=== PATIENT | male | born 1940 | race Caucasian/White ===

== ENCOUNTER → 2023-05-24 | Outpatient (CLI) | payer OTHER ==
[2023-05-24 11:58] LABS: BASOPHILS # (AUTO) 0.03 K/uL (0.00-0.20); BASOPHILS % (AUTO) 0.4 % (0.0-5.0); EOSINOPHILS # (AUTO) 0.12 K/uL (0.00-0.70); EOSINOPHILS % (AUTO) 1.5 % (0.0-8.0); HEMATOCRIT 41.2 % (42-54); IMMATURE GRANULOCYTE ABSOLUTE 0.05 K/uL (0-1); LYMPHOCYTES # (AUTO) 1.7 K/uL (1.0-4.8); LYMPHOCYTES % (AUTO) 20.3 % (21.0-51.0); MEAN CORPUSCULAR HEMOGLOBIN 26.4 pg (27.0-33.0); MEAN CORPUSCULAR HGB CONC 32.3 g/dL (32.0-36.0); MEAN CORPUSCULAR VOLUME 81.9 fL (79-99); MONOCYTES % (AUTO) 11.8 % (3.0-13.0); NEUTROPHILS # (AUTO) 5.4 K/uL (1.8-7.7); NEUTROPHILS % (AUTO) 65.4 % (40.0-77.0); PLATELET COUNT (AUTO) 225 K/uL (130-400); RED BLOOD CELL COUNT(AUTO) 5.03 MIL/uL (4.50-6.20); RED CELL DISTRIBUTION WIDTH 13.7 % (11.0-15.5); WHITE BLOOD COUNT (AUTO) 8.2 K/uL (4.8-10.8)
[2023-05-24 12:06] LABS: CREATININE 2.4 mg/dL (0.5-1.5); POTASSIUM 4.1 mmol/L (3.5-5.1)
== END | disposition home or self-care (01) ==
LOC: LAB 11:30
PROVIDERS: ATTEND Urology
DX: R31.0 Gross hematuria (principal)
CPT/HCPCS: 36415; 80048; 85025

== ENCOUNTER → 2023-06-07 | Outpatient (CLI) | payer OTHER | END | disposition home or self-care (01) | LOC: RAH 09:18 | PROVIDERS: ATTEND Urology | DX: N13.30 Unspecified hydronephrosis (principal); N40.0 Benign prostatic hyperplasia without lower urinary tract symptoms; N13.4 Hydroureter; K40.90 Unilateral inguinal hernia, without obstruction or gangrene, not specified as recurrent; R31.0 Gross hematuria | CPT/HCPCS: 74176 ==

== ENCOUNTER → 2023-06-14 | Outpatient (CLI) | payer OTHER | END | disposition home or self-care (01) | LOC: RAH 07:54 | PROVIDERS: ATTEND Urology | DX: N13.30 Unspecified hydronephrosis (principal); R31.0 Gross hematuria | CPT/HCPCS: 76770 ==

== ENCOUNTER 2024-01-27 10:59 | Inpatient (IN) | payer OTHER ==
[~2024-01-27] VITALS: Ht 175.3 cm; Wt 92.4 kg
--- NOTE | 2024-01-27 11:09 | ERN ---
ED Note History of Present Illness Stated Complaint: WEAKNESS Chief Complaint: Weakness Time Seen by MD: 11:04 Dictation: Patient is an 83-year-old male coming in with his caregiver with complaints of generalized body weakness, getting worse over the last two weeks. He denies fever chills nausea vomiting , HE DOES STATE HE HAS HAD DIARRHEA FOR 2-3 DAYS.. No chest pain no back pain no cough. He does state he has a history of prostate cancer, is currently on oral chemotherapy and received his last radiation two weeks ago. Oncologists his doctor Rylan Allergies: Coded Allergies: No Known Drug Allergies (Unverified Allergy, Unknown, 01/27/24) Past Medical History Past Medical History: Other (Prostate cancer) RN Note Reviewed/Agreed w/PFSH: Yes Review of System Dictation CONSTITUTIONAL: Negative except for HPI weakness HEAD/FACE: Negative except for HPI EENT: Negative except for HPI RESPIRATORY: Negative except for HPI GASTROINTESTINAL/ABDOMINAL: Negative except for HPI pelvic pain, chronic GENITOURINARY: Negative except for HPI MUSCULOSKELETAL: Negative except for HPI INTEGUMENTARY: Negative except for HPI NEUROLOGICAL/PSYCH: Negative except for HPI HEMATOLOGIC/LYMPHATIC: Negative except for HPI All Systems Negative, Except as noted above. 13 point review of systems assessed and all negative except for above. Initial Vital Sign VS Vital Signs Date Time Temp Pulse Resp B/P (MAP) Pulse Ox O2 Delivery O2 Flow Rate FiO2 01/27/24 11:04 97.0 111 18 181/104 98 01/27/24 11:30 Room Air* 0 21 Physical Exam Dictation Vit vital signs stable, appears weak and debilitated. Head and Face: non-traumatic. Eyes: PERRL, pink conjunctivas, eyelid no trauma, anterior chamber with arcus senilis. Ears: Pinnas intact and no signs of trauma or erythema ear canals clear and no discharge TM no erythema Nose: No discharge, no bleeding. Oropharynx: Mouth normal, tongue pink, pharynx clear,no erythema, tonsils no exudates, no abscesses noted, mucous membrane moist Neck: Supple, non-tender, no thyromegaly, no masses, no JVD, no bruits Breast:Deferred Chest:No tenderness, no crepitus, no paradoxical movement, no retractions Lungs:Clear, well-ventilated, symmetric, no rales, no wheezing, no rhonchi, no stridor, good breath sounds bilaterally Heart: Regular rate, regular rhythm, no murmur, no gallops Vascular: no peripheral edema, Abdomen: Soft, positive bowel sounds, nondistended, no guarding, n diffuse suprapubic tenderness, no rebound, no masses no hepatomegaly, no splenomegaly, no Kramer's sign, no hernias. Rectal: Deferred Genital: Deferred Neurological: Normal speech, motor function intact, sensory function intact generalized body weakness all extremities 4+5 throughout Musculoskeletal: Neck nontender, full range of motion, back nontender, full range of motion, Extremities: nontender, full range of motion Skin: Color pink, dry, no turgor, no rash, no lacerations, no abrasions, no contusions. Lymphatic: Deferred Results (Laboratory/Radiology) Laboratory/Radiology Laboratory Tests Test 01/27/24 11:50 01/27/24 12:00 White Blood Count 8.2 K/uL (4.8-10.8) Red Blood Count 3.80 MIL/uL (4.50-6.20) L Hemoglobin 10.4 g/dL (14.0-18.0) L Hematocrit 32.4 % (42-54) L Mean Corpuscular Volume 85.3 fL (79-99) Mean Corpuscular Hemoglobin 27.4 pg (27.0-33.0) Mean Corpuscular Hemoglobin Concent 32.1 g/dL (32.0-36.0) Red Cell Distribution Width 15.6 % (11.0-15.5) H Platelet Count 332 K/uL (130-400) Mean Platelet Volume 9.8 fL (7.5-10.5) Immature Granulocyte % (Auto) 1.5 % (0-1) H Neutrophils (%) (Auto) 78.8 % (40.0-77.0) H Lymphocytes (%) (Auto) 9.2 % (21.0-51.0) L Monocytes (%) (Auto) 9.2 % (3.0-13.0) Eosinophils (%) (Auto) 0.9 % (0.0-8.0) Basophils (%) (Auto) 0.4 % (0.0-5.0) Neutrophils # (Auto) 6.4 K/uL (1.8-7.7) Lymphocytes # (Auto) 0.8 K/uL (1.0-4.8) L Monocytes # (Auto) 0.8 K/uL (0.1-1.0) Eosinophils # (Auto) 0.07 K/uL (0.00-0.70) Basophils # (Auto) 0.03 K/uL (0.00-0.20) Absolute Immature Granulocyte (auto 0.12 K/uL (0-1) Nucleated Red Blood Cells 0.0 % (0.0-0.19) White Cell Morphology Comment See comments Erythrocyte Sedimentation Rate 97 MM/HR (0-20) H Sodium Level 138 mmol/L (136-145) Potassium Level 4.4 mmol/L (3.5-5.1) Chloride Level 107 mmol/L (101-111) Carbon Dioxide Level 21 mmol/L (21-32) Blood Urea Nitrogen 24 mg/dL (7-18) H Creatinine 2.1 mg/dL (0.5-1.3) H Glomerular Filtration Rate Calc 31 mL/min (>90) Random Glucose 102 mg/dL (70-105) Total Calcium 9.2 mg/dL (8.5-10.1) Phosphorus Level 3.2 mg/dL (2.5-4.9) Magnesium Level 2.00 mg/dL (1.80-2.40) Total Bilirubin 0.3 mg/dL (0.2-1.0) Direct Bilirubin 0.1 mg/dL (0.0-0.3) Aspartate Amino Transf (AST/SGOT) 19 U/L (10-37) Alanine Aminotransferase (ALT/SGPT) 11 U/L (12-78) L Alkaline Phosphatase 208 U/L (50-136) H Troponin I High Sensitivity 17 ng/L (4-75) C-Reactive Protein, Quantitative 30.20 mg/L (0.5-3.0) H Total Protein 7.6 g/dL (6.0-8.3) Albumin 2.1 g/dL (3.5-5.0) L Lipase 26 U/L (16-77) Procalcitonin 0.11 ng/mL (0.05-0.5) Urine Color YELLOW (YELLOW) Urine Appearance CLOUDY (CLEAR) H Urine pH 7.0 (5.0-8.0) Urine Specific [place] 1.020 (1.001-1.031) Urine Protein 30 mg/dL (NEGATIVE) H Urine Glucose (UA) NEGATIVE mg/dL (NEGATIVE) Urine Ketones NEGATIVE mg/dL (NEGATIVE) Urine Occult Blood LARGE (NEGATIVE) H Urine Nitrate NEGATIVE (NEGATIVE) Urine Bilirubin NEGATIVE mg/dL (NEGATIVE) Urine Urobilinogen 0.2 mg/dL (0.2-1.0) Urine Leukocyte Esterase MODERATE Nas/uL Urine RBC 26-50 /HPF (0-1) H Urine WBC 26-50 /HPF (0-1) H Urine Squamous Epithelial Cells None Seen /HPF (0-2) Urine Bacteria Moderate /HPF (None Seen) H Labs Reviewed?: Yes EKG Comment: EKG SINUS RHYTHM/HEART RATE 91/OCCASIONAL UNIFOCAL PVC/RIGHT BUNDLE BRANCH BLOCK. ED Course ED Course Orders Procedure Category Date Status Time Cbc With Differential LAB 01/27/24 Complete 11:06 Troponin I High LAB 01/27/24 Complete Sensitivity 11:06 Urinalysis Profile LAB 01/27/24 Complete 11:06 12 Lead Ekg Tracing- EKG 01/27/24 Complete Technical 11:06 0.9%Nacl 1000ml (Ns PHA 01/27/24 Complete 1000ml) 11:30 Morphine 2mg Syg PHA 01/27/24 Complete (Morphine 2mg Syg) 11:30 Ondansetron 4mg Inj PHA 01/27/24 Complete (Zofran 4mg Inj) 11:30 Basic Metabolic Panel LAB 01/27/24 Complete 11:06 Culture Urine DEEP 01/27/24 In Process 12:42 Ceftriaxone 1g Vial PHA 01/27/24 In Process (Rocephine 1g Inj) 13:30 Edm Admit Bridge Order ADM 01/27/24 Transmitted 13:42 Admit Orders ADM 01/27/24 Transmitted 14:08 Telemetry Monitoring CPOE 01/27/24 Transmitted 14:08 Fall Precautions CPOE 01/27/24 Transmitted 14:08 Morphine 2mg Syg PHA 01/27/24 In Process (Morphine 2mg Syg) 14:30 Nephrology Consult CONPHYSVC 01/27/24 Transmitted 14:08 0.9%Nacl 1000ml (Ns PHA 01/27/24 In Process 1000ml) 14:30 Heart Healthy Diet DIET 01/27/[address] Head/Brain W/O CT 11/17/24 Resulted Contrast 14:12 Ct Abdomen/Pelvis W/O CT 01/27/24 Resulted Contrast 14:12 Zosyn 3.375gm+Ns 50ml PHA 01/27/24 In Process (Zosyn 3.375gm+Ns 14:30 Pt Eval And Treat PT 01/27/24 Transmitted 14:14 Case Management CM 01/27/24 Transmitted Evaluation 14:14 Amlodipine 5 Mg Tab PHA 01/27/24 In Process (Norvasc 5mg Tab) 14:30 Losartan 50 Mg Tablet PHA 01/28/24 In Process (Cozaar 50 Mg Tab) 16:00 *Nursing CPOE 01/27/24 Transmitted Communication: 14:18 Acetaminophen 500mg PHA 01/27/24 In Process Tab (Tylenol 500mg T 14:30 Hepatic Function Panel LAB 01/27/24 Complete 14:19 Erythrocyte LAB 01/27/24 Complete Sedimentation Rate 14:19 Crp Quantitative LAB 01/27/24 Complete 14:19 Procalcitonin LAB 01/27/24 Complete 14:19 Magnesium LAB 01/27/24 Complete 14:19 Phosphorus LAB 01/27/24 Complete 14:19 Pantoprazole 40mg Tab PHA 01/28/24 In Process (Protonix 40mg Tab 09:00 Aspirin 81mg Ec Tab PHA 01/28/24 In Process (Aspirin 81mg Ec Tab 09:00 Hydralazine 20mg Inj PHA 01/27/24 In Process (Apresoline 20mg In 15:30 Lipase LAB 01/27/24 Complete 15:26 Ondansetron 4mg Inj PHA 01/27/24 In Process (Zofran 4mg Inj) 16:00 Urology Consult CONPHYSVC 01/27/24 Transmitted 16:38 Oncology Consult CONPHYSVC 01/27/24 Transmitted 16:38 Tamsulosin Hcl PHA 01/27/24 In Process (Flomax) 17:00 Eval Request For DIETOTHR 01/27/24 Transmitted Dietitian 16:44 Finasteride 5 Mg PHA 01/27/24 In Process Tablet (Proscar 5 Mg 21:00 Cbc With Differential LAB 01/28/24 Verified 04:00 Comprehensive LAB 01/28/24 Verified Metabolic Panel 04:00 Uric Acid LAB 01/28/24 Verified 04:00 Phosphorus LAB 01/28/24 Verified 04:00 Strict I&O CPOE 01/27/24 Transmitted 16:49 Daily Weights CPOE 01/27/24 Transmitted 16:49 Current Medications Medications (Trade) Dose Ordered Sig/Zaida Route PRN Reason Start Time Stop Time Status Last Admin Dose Admin Ceftriaxone Sodium (ROCEphine 1G INJ) 1 gm ONCE IVPB 01/27/24 13:30 01/27/24 21:30 01/27/24 13:35 Morphine Sulfate (morPHINE 2MG SYG) 2 mg ONCE ONCE IVP 01/27/24 11:30 01/27/24 11:31 DC 01/27/24 12:30 Ondansetron HCl (zoFRAN 4MG INJ) 4 mg ONCE ONCE IVP 01/27/24 11:30 01/27/24 11:31 DC 01/27/24 12:30 Sodium Chloride 1,000 ml @ 0 mls/hr ONCE ONCE IV 01/27/24 11:30 01/27/24 11:31 DC 01/27/24 12:30 Vital Signs Date Time Temp Pulse Resp B/P (MAP) Pulse Ox O2 Delivery O2 Flow Rate FiO2 01/27/24 17:00 98.2 9 16 186/93 98 Room Air* 0 01/27/24 16:00 98.2 78 16 176/86 98 Room Air* 0 01/27/24 14:45 98.2 75 16 146/75 100 Room Air* 0 01/27/24 13:45 98.2 73 16 139/77 100 Room Air* 0 01/27/24 12:45 98.2 78 16 139/67 100 Room Air* 0 01/27/24 11:30 98.2 97 16 173/93 98 Room Air* 0 01/27/24 11:04 97.0 111 18 181/609 28 [id number], PATIENT IS HEMODYNAMICALLY STABLE HOWEVER HE HAS A ACUTE KIDNEY INJURY WITH A 2.1 CREATININE, COMPLICATED UTI AND WEAKNESS WE WILL BE ADMITTED TO THE HOSPITAL FOR FLUID RESUSCITATION ADDRESSING HIS DEHYDRATION HIS URINARY TRACT INFECTION AND WEAKNESS. THIRTEEN 40, SPOKE WITH . Reviewed labs EKG interventions for acute on chronic kidney injury and dehydration. He agreed to admit patient. Medical Decision Making MDM MDM: DIFFERENTIAL DIAGNOSIS: DEHYDRATION/GEOVANY/ELECTROLYTE IMBALANCE/DE HYDRATION/UTI/ACS RATIONALE: TESTS CONSIDERED AND ORDERED SECONDARY TO SHARED DECISION MAKING INCLUDE: LABS, ECG AND RADIOLOGY PREVIOUS OUTSIDE RECORDS REVIEWED: OLD ER VISITS. SEE NURSE'S NOTES RISK OF COMPLICATION AND/OR MORBIDITY OR MORTALITY OF PATIENT MANAGEMENT MODERATE MEDICATIONS-PER MEDICATION RECONCILIATION REVIEWED NEED FOR HOSPITALIZATION: PATIENT DOES MEET CRITERIA FOR HOSPITALIZATION. PATIENT WILL NEED FLUID RESUSCITATION AND TREATMENT FOR COMPLICATED UTI. NEED FOR EMERGENCY MAJOR/MINOR SURGERY: NO THERE ARE NO SOCIAL CONCERNS WITH THIS PATIENT. PATIENT LIVES ALONE WITH A CAREGIVER ONLY DURING THE DAY. PRESCRIPTION DRUG MANAGEMENT PRESCRIPTIONS WILL INCLUDE SYMPTOMATIC CARE PATIENT'S PRIOR EXTERNAL MEDICAL RECORDS FROM OTHER ER VISITS WERE REVIEWED BY ME INDICATED. PRIOR TESTING AND RESULTS FROM PREVIOUS VISITS WERE REVIEWED. PRIOR TESTS WERE TAKEN INTO ACCOUNT WITH MEDICAL DECISION MAKING AND RESOURCE UTILIZATION, INDEPENDENT HISTORIAN/HISTORIANS WERE USED TO OBTAIN COMPLETE MEDICAL HISTORY. I INDEPENDENTLY INTERPRETED THE TEST THAT WERE PERFORMED, RESULTS WERE REVIEWED BY ME AND CONSIDERED FINDINGS ON RADIOLOGY IF ORDERED. MEDICAL MANAGEMENT AND EXAMINATION INTERPRETATION DISCUSSIONS WERE HAD BY ME WITH OTHER QUALIFIED HEALTHCARE PROFESSIONALS INDICATED FOR THE PATIENT'S CARE. DX & DISP Disposition: Inpatient Decision to Admit Time: 13:07 Departure Impression: Primary Impression: Acute kidney injury Additional Impressions: Complicated UTI (urinary tract infection), Dehydration, Weakness, Prostate cancer Condition: Stable Referrals: SELF,REFERRAL (PCP) ATTESTATION BY PHYSICIAN I PERFORMED THE SUBSTANTIVE PORTION OF THE VISIT. I HAVE REVIEWED AND PERSONALL Y MADE AND APPROVED THE MANAGEMENT PLAN THAT IS DOCUMENTED IN THE NOTE BY MYSELF FOR THE A PP. I ACKNOWLEDGED FOR RESPONSIBILITY FOR THE PATIENT'S MANAGEMENT PLAN. GM GUAJARDO NP Jan 27, 2024 11:09 RICARDA MOREIRA MD Jan 27, 2024 17:21
--- NOTE | 2024-01-27 11:29 | EKG ---
[facility] Test Date: 2024-01-27 Test Time: 11:28:18 Pat Name: JAMES BATEMAN Department: [facility] Room: 409 Gender: M Pasta Maker: student : [id number] Requested By: GM GUAJARDO Order Number: [id number] Reading MD: Charlie Rosario Measurements Intervals Barron Rate: 91 P: 12 OK: 182 QRS: 77 QRSD: 146 T: -17 QT: 404 QTc: 497 Interpretive Statements Sinus rhythm Ventricular premature complex Right bundle branch block No previous ECG available for comparison Electronically Signed On 01-28-2024 19:59:03 [employer] by Charlie Rosario Please click the below link to view image of tracing.
[2024-01-27 12:12] LABS: BASOPHILS # (AUTO) 0.03 K/uL (0.00-0.20); BASOPHILS % (AUTO) 0.4 % (0.0-5.0); EOSINOPHILS # (AUTO) 0.07 K/uL (0.00-0.70); EOSINOPHILS % (AUTO) 0.9 % (0.0-8.0); HEMATOCRIT 32.4 % (42-54); IMMATURE GRANULOCYTE ABSOLUTE 0.12 K/uL (0-1); LYMPHOCYTES # (AUTO) 0.8 K/uL (1.0-4.8); LYMPHOCYTES % (AUTO) 9.2 % (21.0-51.0); MEAN CORPUSCULAR HEMOGLOBIN 27.4 pg (27.0-33.0); MEAN CORPUSCULAR HGB CONC 32.1 g/dL (32.0-36.0); MEAN CORPUSCULAR VOLUME 85.3 fL (79-99); MONOCYTES # (AUTO) 0.8 K/uL (0.1-1.0); MONOCYTES % (AUTO) 9.2 % (3.0-13.0); NEUTROPHILS # (AUTO) 6.4 K/uL (1.8-7.7); NEUTROPHILS % (AUTO) 78.8 % (40.0-77.0); PLATELET COUNT (AUTO) 332 K/uL (130-400); RED CELL DISTRIBUTION WIDTH 15.6 % (11.0-15.5); WHITE BLOOD COUNT (AUTO) 8.2 K/uL (4.8-10.8)
[2024-01-27] MEDS: ondanSETRON 4MG INJ IVP ONE (12:30)
[2024-01-27] MEDS: morPHINE 2 MG SYG IVP ONE (12:30)
[2024-01-27] MEDS: 0.9%NACL 1000ML 1,000 ML IV ONE (12:30)
[2024-01-27 12:36] LABS: CREATININE 2.1 mg/dL (0.5-1.3); POTASSIUM 4.4 mmol/L (3.5-5.1)
[2024-01-27 12:41] LABS: ADD UA MICROSCOPIC YES; APPEARANCE,URINE CLOUDY (CLEAR); BILIRUBIN,URINE NEGATIVE (NEGATIVE); COLOR,URINE YELLOW (YELLOW); GLUCOSE, URINE (UA) NEGATIVE (NEGATIVE); KETONES,URINE NEGATIVE (NEGATIVE); LEUKOCYTE ESTERASE ,URINE MODERATE Leu/uL (NEGATIVE); NITRATE,URINE NEGATIVE (NEGATIVE); OCCULT BLOOD,URINE LARGE (NEGATIVE); PROTEIN,URINE 30 mg/dL (NEGATIVE); UROBILINOGEN,URINE 0.2 mg/dL (0.2-1.0)
[2024-01-27 12:53] LABS: WBC,URINE 26-50 /HPF (0-1)
[2024-01-27 12:54] LABS: BACTERIA,URINE Moderate /HPF (None Seen); RBC,URINE 26-50 /HPF (0-1); SQUAMOUS EPITHELIAL CELL,UR None Seen /HPF (0-2)
[2024-01-27] MEDS: cefTRIAXone 1G VIAL IVPB SCH (13:35)
[2024-01-27] MEDS ORDERED: morPHINE 2 MG SYG IVP PRN (14:30)
--- NOTE | 2024-01-27 14:48 | HMCIMG ---
CT HEAD WITHOUT CONTRAST INDICATION: Weakness TECHNIQUE: Noncontrast axial helical CT images from the vertex through the skull base using 5 mm slice thickness without contrast material. Coronal and sagittal reconstructions were also included. Dose reduction techniques was used using integrated, automated and adaptive dose reduction exposure control. CT was performed with one or more of the following dose reduction techniques: Automated exposure control, adjustment of the mA and/or kV according to patient size, or use of iterative reconstruction technique. COMPARISON: None FINDINGS: Scattered and coalescent subcortical and periventricular white matter low attenuating areas likely represent residual of chronic small vessel arteriopathy and/or remote vascular insult. Generalized mild cerebral cortical atrophy is present.. No evidence for abnormal extra-axial fluid collections or masses. The ventricles and sulci are normal in size and configuration. No evidence for intracranial parenchymal, epidural, or subdural hemorrhage, mass effect or midline shift. The dubon-white matter differentiation is well preserved. No secondary evidence to suggest acute ischemia. Mild calcific plaque is present along the john of the cavernous segments of both internal carotid arteries. The brainstem and cerebellum appear normal. The visualized orbits appear unremarkable. The visible paranasal sinuses and mastoid air cells are clear. The calvarium appears normal. IMPRESSION: Chronic white matter ischemic changes, mild brain atrophy, and arteriosclerotic disease as described, without acute component.
--- NOTE | 2024-01-27 14:53 | HMCIMG ---
CT ABDOMEN WITHOUT CONTRAST. CT PELVIS WITHOUT CONTRAST. INDICATION: Prostate cancer, evaluate for hydronephrosis TECHNIQUE: Routine transaxial imaging using 5 mm slice thickness through the abdomen and pelvis without the administration of IV contrast. Thin slice reconstructions are also provided. Coronal and sagittal reformatted images acquired for interpretation. CT was performed with one or more of the following dose reduction techniques: Automated exposure control, adjustment of the mA and/or kV according to patient size, or use of iterative reconstruction technique. COMPARISON: 06/07/2023 FINDINGS: ON NONCONTRAST IMAGING: ABDOMEN: Heart size is normal. Scarring at both lung bases. Moderate bilateral hydroureteronephrosis. The liver is normal in size and smooth in contour without biliary duct dilation. The spleen is normal in size and attenuation. The gallbladder is absent. Several miniscule calcifications within the pancreatic parenchyma without pancreatic duct dilation. The adrenal glands appear normal. No significant abdominal, retrocrural or retroperitoneal adenopathy noted. No evidence for intra-abdominal free air or organized fluid collection. Mild calcific plaque is noted along the abdominal aortic and iliac vessel jonh without aneurysmal dilation. PELVIS: Small fat-containing nonobstructing left inguinal hernia. Chronic-appearing urinary bladder wall thickening, but associated mild surrounding inflammatory fat stranding. No evidence for free air or organized pelvic fluid collection. No significant pelvic adenopathy detected. Several diverticula along the distal colon. Terminal ileum appears unremarkable. The appendix appears normal. Prostate gland is enlarged. Visible osseous structures are intact. IMPRESSION: 1. Enlarged prostate gland, findings suggesting acute on chronic cystitis, and moderate bilateral hydroureteronephrosis. 2. Distal colonic diverticulosis. 3. Chronic pancreatitis. 4. Small fat-containing nonobstructing left inguinal hernia.
[2024-01-27 15:10] LABS: ALBUMIN 2.1 g/dL (3.5-5.0); BILIRUBIN,DIRECT 0.1 mg/dL (0.0-0.3); BILIRUBIN,TOTAL 0.3 mg/dL (0.2-1.0); PHOSPHORUS 3.2 mg/dL (2.5-4.9); TOTAL PROTEIN, SERUM 7.6 g/dL (6.0-8.3)
[2024-01-27] MEDS: amLODIPine 5 MG TAB PO SCH (16:49)
[2024-01-27] MEDS: ZOSYN 3.375GM +NS 50ML IVPB SCH (16:50)
[2024-01-27] MEDS: 0.9%NACL 1000ML 1,000 ML IV SCH (16:51)
[2024-01-27] MEDS: hydrALAZine 20MG/ML VIAL IV PRN (17:28)
[2024-01-27 17:40] VITALS: BP 166/93; PULSE 104; RESP 20; TEMP 98.2
[2024-01-27] MEDS ORDERED: LOSA100T59 PO (18:17)
[2024-01-27] MEDS ORDERED: ENZA40CA PO (18:17)
[2024-01-27] MEDS ORDERED: MIRA50TA PO (18:17)
[2024-01-27] MEDS ORDERED: AMLO-258 PO (18:17)
[2024-01-27] MEDS ORDERED: FINA5TAB41 PO (18:17)
[2024-01-27] MEDS ORDERED: TAMS-1 PO (18:17)
[2024-01-27] MEDS ORDERED: PRAV40TA3 PO (18:17)
[2024-01-27] MEDS ORDERED: FURO20TA4 PO (18:17)
[2024-01-27] MEDS ORDERED: ISOS20TA85 PO (18:17)
[2024-01-27] MEDS ORDERED: OMEP20CA12 PO (18:17)
[2024-01-27] MEDS: LoSARTan 50 MG TABLET PO SCH (18:29)
[2024-01-27] MEDS: tamSULOsin HCL 0.4 MG CAP.ER.24H PO SCH ×2 (18:29→20:10)
--- NOTE | 2024-01-27 19:45 | HP ---
[facility]ORY [facility] PHYS[facility] Date of Service: Jan 27, 2024 Time of Service: 19:44 HISTORY OF PRESENT ILLNESS: [ ] REVIEW OF SYSTEMS CONSTITUTIONAL: Denies fevers, chills, or night sweats. No unintentional weight loss reported. NEUROLOGICAL: Denies headache, amaurosis fugax, motor weakness, sensory deficit, vertigo/spinning sensation, gait abnormalities, or tremors. ENT: No hearing loss, otalgia, otorrhea, rhinitis, rhinorrhea, hoarseness, or sore throat. CARDIOVASCULAR: Denies any exertional angina, dyspnea on exertion, orthopnea, paroxysmal nocturnal dyspnea, palpitations, life-threatening arrhythmias, claudication. PULMONARY: Denies any shortness of breath, cough, phlegm/sputum, hemoptysis, pleuritic chest pain. SLEEP: Denies morning headaches, daytime somnolence or napping. Denies difficulty falling asleep, staying asleep, waking from sleep. Denies knowledge of snoring. GASTROINTESTINAL: Denies any type of dysphagia to either liquids or solids. Denies nausea, vomiting, pyrosis, early satiety, abdominal pain, diarrhea, constipation, or changes in stool consistency or caliber. Denies coffee-ground emesis, hematemesis, hematochezia, or melanotic stools. GENITOURINARY: Denies frequency, urgency, nocturia, hematuria or incontinence (Storage/Irritative symptoms.) Low urinary stream, straining to void, urinary intermittency or hesitancy, splitting of the voiding stream, terminal dribbling. ENDOCRINOLOGIC: Denies polyuria, polydipsia, polyphagia or heat/cold intolerances. HEMATOLOGIC: Denies thrombophilia/previous clots, or coagulopathy/bleeding disorders. ONCOLOGIC: Denies personal history of malignancy. DERMATOLOGIC: Denies rashes or pruritus. PSYCHIATRIC: Denies any suicidal or homicidal ideation. Denies hallucinations. PAST MEDICAL HISTORY: [ ] PAST SURGICAL HISTORY: [ ] PAST SOCIAL HISTORY: [ ] FAMILY HISTORY: [ ] Coded Allergies: No Known Drug Allergies (Unverified Allergy, Unknown, 01/27/24) PHYSICAL EXAM GENERAL APPEARANCE: The patient is awake, alert, and oriented, in no acute cardiopulmonary distress. NEUROLOGICAL: Cranial nerves II-XII grossly intact. Motor is 5/5 in bilateral upper and lower extremities proximal to distal. No sensory deficits. HEENT: Face is symmetric. Pupils are equal and reactive. Extraocular movements are intact. NECK: Supple. No JVD. No thyromegaly. No submental, submandibular, pre- /postauricular, occipital or supraclavicular lymphadenopathy. CHEST: Normal chest expansion. No Telemetry. LUNGS: Absence of any rales, rhonchi or any wheezing. CARDIOVASCULAR: Regular. S1 and S2 normal. No appreciable rubs, murmurs or gallops. ABDOMEN: Soft, nontender, and nondistended. There is no rebound, voluntary guarding, or rigidity. : Deferred. No Braun. EXTREMITIES: Non-edematous and not cyanotic. No clubbing. Good capillary refill. SKIN: No skin breakdown. Vital Sign (Last 24 Hours) 01/27/24 01/27/24 17:40 17:45 Temp 98.2 Pulse 104 Resp 20 B/P (MAP) 166/93 Pulse Ox 97 O2 Delivery Room Air* O2 Flow Rate 0 FiO2 21 LABS: Laboratory: Test 01/27/24 12:00 01/27/24 11:50 Range/Units Urine Color YELLOW YELLOW Urine Appearance CLOUDY H CLEAR Urine pH 7.0 5.0-8.0 Urine Specific [place] 1.020 1.001-1.031 Urine Protein 30 H NEGATIVE mg/dL Urine Glucose (UA) NEGATIVE NEGATIVE mg/dL Urine Ketones NEGATIVE NEGATIVE mg/dL Urine Occult Blood LARGE H NEGATIVE Urine Nitrate NEGATIVE NEGATIVE Urine Bilirubin NEGATIVE NEGATIVE mg/dL Urine Urobilinogen 0.2 0.2-1.0 mg/dL Urine Leukocyte Esterase MODERATE H NEGATIVE Nas/uL Urine RBC 26-50 H 0-1 /HPF Urine WBC 26-50 H 0-1 /HPF Urine Squamous Epithelial Cells None Seen 0-2 /HPF Urine Bacteria Moderate H None Seen /HPF White Blood Count 8.2 4.8-10.8 K/uL Red Blood Count 3.80 L 4.50-6.20 MIL/uL Hemoglobin 10.4 L 14.0-18.0 g/dL Hematocrit 32.4 L 42-54 % Mean Corpuscular Volume 85.3 79-99 fL Mean Corpuscular Hemoglobin 27.4 27.0-33.0 pg Mean Corpuscular Hemoglobin Concent 32.1 32.0-36.0 g/dL Red Cell Distribution Width 15.6 H 11.0-15.5 % Platelet Count 332 130-400 K/uL Mean Platelet Volume 9.8 7.5-10.5 fL Immature Granulocyte % (Auto) 1.5 H 0-1 % Neutrophils (%) (Auto) 78.8 H 40.0-77.0 % Lymphocytes (%) (Auto) 9.2 L 21.0-51.0 % Monocytes (%) (Auto) 9.2 3.0-13.0 % Eosinophils (%) (Auto) 0.9 0.0-8.0 % Basophils (%) (Auto) 0.4 0.0-5.0 % Neutrophils # (Auto) 6.4 1.8-7.7 K/uL Lymphocytes # (Auto) 0.8 L 1.0-4.8 K/uL Monocytes # (Auto) 0.8 0.1-1.0 K/uL Eosinophils # (Auto) 0.07 0.00-0.70 K/uL Basophils # (Auto) 0.03 0.00-0.20 K/uL Absolute Immature Granulocyte (auto 0.12 0-1 K/uL Nucleated Red Blood Cells 0.0 0.0-0.19 % White Cell Morphology Comment See comments Erythrocyte Sedimentation Rate 97 H 0-20 MM/HR Sodium Level 138 136-145 mmol/L Potassium Level 4.4 3.5-5.1 mmol/L Chloride Level 107 101-111 mmol/L Carbon Dioxide Level 21 21-32 mmol/L Blood Urea Nitrogen 24 H 7-18 mg/dL Creatinine 2.1 H 0.5-1.3 mg/dL Glomerular Filtration Rate Calc 31 >90 mL/min Random Glucose 102 70-105 mg/dL Total Calcium 9.2 8.5-10.1 mg/dL Phosphorus Level 3.2 2.5-4.9 mg/dL Magnesium Level 2.00 1.80-2.40 mg/dL Total Bilirubin 0.3 0.2-1.0 mg/dL Direct Bilirubin 0.1 0.0-0.3 mg/dL Aspartate Amino Transf (AST/SGOT) 19 10-37 U/L Alanine Aminotransferase (ALT/SGPT) 11 L 12-78 U/L Alkaline Phosphatase 208 H 50-136 U/L Troponin I High Sensitivity 17 4-75 ng/L C-Reactive Protein, Quantitative 30.20 H 0.5-3.0 mg/L Total Protein 7.6 6.0-8.3 g/dL Albumin 2.1 L 3.5-5.0 g/dL Lipase 26 16-77 U/L Procalcitonin 0.11 0.05-0.5 ng/mL Current Medications Medications (Trade) Dose Ordered Sig/Zaida Route PRN Reason Start Time Stop Time Status Last Admin Dose Admin Acetaminophen (TYLenol 500MG TAB) 500 mg Q6H PRN PO MILD PAIN (1-3) 01/27/24 14:30 02/26/24 14:29 Amlodipine Besylate (NorvASC 5MG TAB) 5 mg Q24H PO 01/27/24 14:30 02/26/24 14:29 01/27/24 16:49 5 MG Aspirin (Aspirin 81mg Ec Tab) 81 mg DAILY PO 01/28/24 09:00 02/27/24 08:59 Ceftriaxone Sodium (ROCEphine 1G INJ) 1 gm ONCE IVPB 01/27/24 13:30 01/27/24 21:30 01/27/24 13:35 1 GM Finasteride (PROscar 5 MG TAB) 5 mg HS PO 01/27/24 21:00 02/26/24 20:59 Hydralazine HCl (APRESOLine 20MG INJ) 10 mg Q6H PRN IV ADMINISTER FOR SBP > 170 01/27/24 15:30 02/26/24 15:29 01/27/24 17:28 10 MG Losartan Potassium (CozAAR 50 mg TAB) 50 mg DAILY PO 01/28/24 16:00 01/27/24 17:41 DC Losartan Potassium (CozAAR 50 mg TAB) 50 mg Q24H PO 01/27/24 18:00 02/27/24 15:59 01/27/24 18:29 50 MG Morphine Sulfate (morPHINE 2MG SYG) 2 mg Q6H PRN IVP SEVERE PAIN (7-10) 01/27/24 14:30 02/03/24 14:29 Ondansetron HCl (zoFRAN 4MG INJ) 4 mg Q6H PRN IVP NAUSEA/VOMITING 01/27/24 16:00 02/26/24 15:59 Pantoprazole Sodium (PROTonix 40MG TAB) 40 mg ACBKFST PO 01/28/24 09:00 12/18/24 08:59 Piperacillin Sod/ Tazobactam Sod (Zosyn 3.375gm+NS 50ml) 3.375 gm Q12H IVPB 01/27/24 14:30 02/06/24 14:29 01/27/24 16:50 3.375 GM Sodium Chloride 1,000 ml @ 50 mls/hr Q20H IV 01/27/24 14:30 02/26/24 14:29 01/27/24 16:51 50 MLS/HR Tamsulosin HCl (FloMAX) 0.4 mg ONCE PO 01/27/24 17:00 01/27/24 21:00 01/27/24 18:29 0.4 MG DIAGNOSTICS / RADIOLOGY: [ ] ASSESSMENT: [ ] PLAN: [ ] NADER TATE MD Jan 27, 2024 19:45
--- NOTE | 2024-01-27 19:48 | HP ---
[facility] HISTORY [facility] PHYSICAL Date of Service: Jan 27, 2024 Time of Service: 19:48 HISTORY OF PRESENT ILLNESS: Date of service: 01/27/2024, patient was seen in ER room 12 83-year-old male with underlying history of prostate cancer with recent history of radiation treatment maintained on outpatient treatment with enzalutamide, chronic kidney disease, hypertension, hyperlipidemia, BPH, who presented to the ER for further evaluation with back pain. Symptoms have been ongoing for the past two weeks and have been nonresolving. Patient states that he has a underlying history of prostate cancer and underwent recent radiation treatment, postradiation therapy, patient states that he developed worsening back pain and suprapubic discomfort. He noticed that his urine is pinkish tinge and he reports having dysuria. Patient is followed by Dr. Villa as oupatient and is followed at the [facility]. He was diagnosed with prostate cancer about eight years ago. Patient's care provider present at bedside has noticed that patient has been having progressive functional decline and he has noticed that patient has more fatigued and tired as well. Patient has lost about 20 lb in the last one month. Patient denies focal weakness of upper or lower extremities otherwise. Patient also reports having a possible syncopal episode about 3-4 days ago. On presentation to the hospital, patient was noted to be hypertensive with blood pressure of 181/104, afebrile and heart rate of 111. Labs on presentation showed WBC count of 8200, hemoglobin of 10.4, platelet count of 032269. BMP remarkable for sodium 138, potassium 4.4, BUN of 24, creatinine 2.1, alkaline phosphatase of 208. Urinalysis showed cloudy urine with leukocyte esterase, RBCs, pyuria, and bacteriuria. Patient will be admitted for further management of complicated UTI. Plan to obtain CT abdomen pelvis without contrast to rule out any developing hydronephrosis, we will also obtain a CT head without contrast given weakness for the past two weeks. We will request consultation with Urology, Nephrology and Oncology this admission given patient's multiple underlying comorbidities and underlying history of prostate cancer. REVIEW OF SYSTEMS CONSTITUTIONAL: Denies fevers, chills, or night sweats. No unintentional weight loss reported. NEUROLOGICAL: Recent history of fall ENT: No hearing loss, otalgia, otorrhea, rhinitis, rhinorrhea, hoarseness, or sore throat. CARDIOVASCULAR: Denies any exertional angina, dyspnea on exertion, orthopnea, paroxysmal nocturnal dyspnea, palpitations, life-threatening arrhythmias, claudication. PULMONARY: Denies any shortness of breath, cough, phlegm/sputum, hemoptysis, pleuritic chest pain. SLEEP: Denies morning headaches, daytime somnolence or napping. Denies difficulty falling asleep, staying asleep, waking from sleep. Denies knowledge of snoring. GASTROINTESTINAL: Reports having nausea, with poor oral intake and associated weight loss GENITOURINARY: Suprapubic pain, cloudy pinkish tinged urine, dysuria ENDOCRINOLOGIC: Denies polyuria, polydipsia, polyphagia or heat/cold intolerances. HEMATOLOGIC: Denies thrombophilia/previous clots, or coagulopathy/bleeding disorders. ONCOLOGIC: Denies personal history of malignancy. DERMATOLOGIC: Denies rashes or pruritus. PSYCHIATRIC: Denies any suicidal or homicidal ideation. Denies hallucinations. PAST MEDICAL HISTORY: Hypertension, hyperlipidemia, history of prostate cancer, GERD, BPH, chronic kidney disease stage 3, history of nephrolithiasis PAST SURGICAL HISTORY: History of cholecystectomy, history of lithotripsy PAST SOCIAL HISTORY: Currently denies active smoking or alcohol consumption FAMILY HISTORY: Denies pertinent family history Allergies: Denies known drug allergies Home medications: Family will be bringing home medication list to be reconciled and updated Coded Allergies: No Known Drug Allergies (Unverified Allergy, Unknown, 01/27/24) PHYSICAL EXAM GENERAL APPEARANCE: The patient is awake, alert, and oriented, in no acute cardiopulmonary distress. NEUROLOGICAL: Cranial nerves II-XII grossly intact. Motor is 5/5 in bilateral upper and lower extremities proximal to distal. No sensory deficits. HEENT: Face is symmetric. Pupils are equal and reactive. Extraocular movements are intact. NECK: Supple. No JVD. No thyromegaly. No submental, submandibular, pre- /postauricular, occipital or supraclavicular lymphadenopathy. CHEST: Normal chest expansion. No Telemetry. LUNGS: Absence of any rales, rhonchi or any wheezing. CARDIOVASCULAR: Regular. S1 and S2 normal. No appreciable rubs, murmurs or gallops. ABDOMEN: Soft, nontender, and nondistended. There is no rebound, voluntary guarding, or rigidity. : Deferred. No Braun. EXTREMITIES: Non-edematous and not cyanotic. No clubbing. Good capillary refill. SKIN: No skin breakdown. Vital Sign (Last 24 Hours) 01/27/24 01/27/24 17:40 17:45 Temp 98.2 Pulse 104 Resp 20 B/P (MAP) 166/93 Pulse Ox 97 O2 Delivery Room Air* O2 Flow Rate 0 FiO2 21 LABS: Laboratory: Test 01/27/24 12:00 01/27/24 11:50 Range/Units Urine Color YELLOW YELLOW Urine Appearance CLOUDY H CLEAR Urine pH 7.0 5.0-8.0 Urine Specific Dows 1.020 1.001-1.031 Urine Protein 30 H NEGATIVE mg/dL Urine Glucose (UA) NEGATIVE NEGATIVE mg/dL Urine Ketones NEGATIVE NEGATIVE mg/dL Urine Occult Blood LARGE H NEGATIVE Urine Nitrate NEGATIVE NEGATIVE Urine Bilirubin NEGATIVE NEGATIVE mg/dL Urine Urobilinogen 0.2 0.2-1.0 mg/dL Urine Leukocyte Esterase MODERATE H NEGATIVE Nas/uL Urine RBC 26-50 H 0-1 /HPF Urine WBC 26-50 H 0-1 /HPF Urine Squamous Epithelial Cells None Seen 0-2 /HPF Urine Bacteria Moderate H None Seen /HPF White Blood Count 8.2 4.8-10.8 K/uL Red Blood Count 3.80 L 4.50-6.20 MIL/uL Hemoglobin 10.4 L 14.0-18.0 g/dL Hematocrit 32.4 L 42-54 % Mean Corpuscular Volume 85.3 79-99 fL Mean Corpuscular Hemoglobin 27.4 27.0-33.0 pg Mean Corpuscular Hemoglobin Concent 32.1 32.0-36.0 g/dL Red Cell Distribution Width 15.6 H 11.0-15.5 % Platelet Count 332 130-400 K/uL Mean Platelet Volume 9.8 7.5-10.5 fL Immature Granulocyte % (Auto) 1.5 H 0-1 % Neutrophils (%) (Auto) 78.8 H 40.0-77.0 % Lymphocytes (%) (Auto) 9.2 L 21.0-51.0 % Monocytes (%) (Auto) 9.2 3.0-13.0 % Eosinophils (%) (Auto) 0.9 0.0-8.0 % Basophils (%) (Auto) 0.4 0.0-5.0 % Neutrophils # (Auto) 6.4 1.8-7.7 K/uL Lymphocytes # (Auto) 0.8 L 1.0-4.8 K/uL Monocytes # (Auto) 0.8 0.1-1.0 K/uL Eosinophils # (Auto) 0.07 0.00-0.70 K/uL Basophils # (Auto) 0.03 0.00-0.20 K/uL Absolute Immature Granulocyte (auto 0.12 0-1 K/uL Nucleated Red Blood Cells 0.0 0.0-0.19 % White Cell Morphology Comment See comments Erythrocyte Sedimentation Rate 97 H 0-20 MM/HR Sodium Level 138 136-145 mmol/L Potassium Level 4.4 3.5-5.1 mmol/L Chloride Level 107 101-111 mmol/L Carbon Dioxide Level 21 21-32 mmol/L Blood Urea Nitrogen 24 H 7-18 mg/dL Creatinine 2.1 H 0.5-1.3 mg/dL Glomerular Filtration Rate Calc 31 >90 mL/min Random Glucose 102 70-105 mg/dL Total Calcium 9.2 8.5-10.1 mg/dL Phosphorus Level 3.2 2.5-4.9 mg/dL Magnesium Level 2.00 1.80-2.40 mg/dL Total Bilirubin 0.3 0.2-1.0 mg/dL Direct Bilirubin 0.1 0.0-0.3 mg/dL Aspartate Amino Transf (AST/SGOT) 19 10-37 U/L Alanine Aminotransferase (ALT/SGPT) 11 L 12-78 U/L Alkaline Phosphatase 208 H 50-136 U/L Troponin I High Sensitivity 17 4-75 ng/L C-Reactive Protein, Quantitative 30.20 H 0.5-3.0 mg/L Total Protein 7.6 6.0-8.3 g/dL Albumin 2.1 L 3.5-5.0 g/dL Lipase 26 16-77 U/L Procalcitonin 0.11 0.05-0.5 ng/mL Current Medications Medications (Trade) Dose Ordered Sig/Zaida Route PRN Reason Start Time Stop Time Status Last Admin Dose Admin Acetaminophen (TYLenol 500MG TAB) 500 mg Q6H PRN PO MILD PAIN (1-3) 01/27/24 14:30 02/26/24 14:29 Amlodipine Besylate (NorvASC 5MG TAB) 5 mg Q24H PO 01/27/24 14:30 02/26/24 14:29 01/27/24 16:49 5 MG Aspirin (Aspirin 81mg Ec Tab) 81 mg DAILY PO 01/28/24 09:00 02/27/24 08:59 Ceftriaxone Sodium (ROCEphine 1G INJ) 1 gm ONCE IVPB 01/27/24 13:30 01/27/24 21:30 01/27/24 13:35 1 GM Finasteride (PROscar 5 MG TAB) 5 mg HS PO 01/27/24 21:00 02/26/24 20:59 Hydralazine HCl (APRESOLine 20MG INJ) 10 mg Q6H PRN IV ADMINISTER FOR SBP > 170 01/27/24 15:30 02/26/24 15:29 01/27/24 17:28 10 MG Losartan Potassium (CozAAR 50 mg TAB) 50 mg DAILY PO 01/28/24 16:00 01/27/24 17:41 DC Losartan Potassium (CozAAR 50 mg TAB) 50 mg Q24H PO 01/27/24 18:00 02/27/24 15:59 01/27/24 18:29 50 MG Morphine Sulfate (morPHINE 2MG SYG) 2 mg Q6H PRN IVP SEVERE PAIN (7-10) 01/27/24 14:30 02/03/24 14:29 Ondansetron HCl (zoFRAN 4MG INJ) 4 mg Q6H PRN IVP NAUSEA/VOMITING 01/27/24 16:00 02/26/24 15:59 Pantoprazole Sodium (PROTonix 40MG TAB) 40 mg ACBKFST PO 01/28/24 09:00 02/27/24 08:59 Piperacillin Sod/ Tazobactam Sod (Zosyn 3.375gm+NS 50ml) 3.375 gm Q12H IVPB 01/27/24 14:30 02/06/24 14:29 01/27/24 16:50 3.375 GM Sodium Chloride 1,000 ml @ 50 mls/hr Q20H IV 01/27/24 14:30 02/26/24 14:29 01/27/24 16:51 50 MLS/HR Tamsulosin HCl (FloMAX) 0.4 mg ONCE PO 01/27/24 17:00 01/27/24 21:00 01/27/24 18:29 0.4 MG DIAGNOSTICS / RADIOLOGY: SERVICE 1412 REASON: PROSTATE CANCER, ASSESS FOR HYDRONEPHROSIS, HX OF CKD ORDERING PHYSICIAN: CANDELARIO COX MD PROCEDURE: ABD PEL WO - CT ABDOMEN/PELVIS W/O CONTRAST CT ABDOMEN WITHOUT CONTRAST. CT PELVIS WITHOUT CONTRAST. INDICATION: Prostate cancer, evaluate for hydronephrosis TECHNIQUE: Routine transaxial imaging using 5 mm slice thickness through the abdomen and pelvis without the administration of IV contrast. Thin slice reconstructions are also provided. Coronal and sagittal reformatted images acquired for interpretation. CT was performed with one or more of the following dose reduction techniques: Automated exposure control, adjustment of the mA and/or kV according to patient size, or use of iterative reconstruction technique. COMPARISON: 06/07/2023 FINDINGS: ON NONCONTRAST IMAGING: ABDOMEN: Heart size is normal. Scarring at both lung bases. Moderate bilateral hydroureteronephrosis. The liver is normal in size and smooth in contour without biliary duct dilation. The spleen is normal in size and attenuation. The gallbladder is absent. Several miniscule calcifications within the pancreatic parenchyma without pancreatic duct dilation. The adrenal glands appear normal. No significant abdominal, retrocrural or retroperitoneal adenopathy noted. No evidence for intra-abdominal free air or organized fluid collection. Mild calcific plaque is noted along the abdominal aortic and iliac vessel john without aneurysmal dilation. PELVIS: Small fat-containing nonobstructing left inguinal hernia. Chronic-appearing urinary bladder wall thickening, but associated mild surrounding inflammatory fat stranding. No evidence for free air or organized pelvic fluid collection. No significant pelvic adenopathy detected. Several diverticula along the distal colon. Terminal ileum appears unremarkable. The appendix appears normal. Prostate gland is enlarged. Visible osseous structures are intact. IMPRESSION: 1. Enlarged prostate gland, findings suggesting acute on chronic cystitis, and moderate bilateral hydroureteronephrosis. 2. Distal colonic diverticulosis. 3. Chronic pancreatitis. 4. Small fat-containing nonobstructing left inguinal hernia. DICTATED BY: ANMOL CHEN MD DATE: 01/27/24 1446 ELECTRONICALLY SIGNED BY: ANMOL CHEN MD DATE: 01/27/24 9196 ASSESSMENT: Complicated urinary tract infection with significant cystitis, POA Hematuria,POA Recent fall, POA Acute on chronic bilateral moderate hydroureteronephrosis, POA Hypertensive urgency, POA Underlying history of prostate cancer, POA Recent history of syncope, POA Debility/frailty/deconditioning, POA Moderate to severe protein calorie malnutrition with associated 20 lb weight loss in one month, POA Rule out radiation cystitis, POA Acute on chronic renal failure, POA Hypertension, POA Hyperlipidemia, POA Tachycardia with RBBB, POA GERD, POA History of BPH, POA PLAN: Patient will be admitted to cardiac telemetry floor We will follow up blood cultures, urine culture Broad-spectrum antibiotics with IV Zosyn, gentle hydration with NS at 50 mL/hour, plan for 10-14 days of antibiotic therapy based on culture results Review of record shows renal ultrasound from 06/2023 showed mild bilateral hydronephrosis CT abdomen pelvis without contrast from today showed progressive moderate bilateral hydroureteronephrosis with significant cystitis We will request consultation with Urology, Braun catheter may need to be placed in case of significant urinary retention and CBI started, we will assess hydronephrosis post Braun catheter placement, and if continues to show persistent hydronephrosis, we will discuss with Urology and Nephrology about possible nephrostomy tube placement if indicated, patient may also benefit from renal scan We will resume patient's antihypertensive medication including amlodipine and losartan, patient states that he was not taking any of his antihypertensive medications today We will request consultation with Physical therapy Home medications will be reconciled and updated once available We will obtain a 2D echocardiogram to assess LVEF and rule out any significant valvulopathy All labs will be repeated in the morning, we will have Oncology follow up with this patient Case management to follow up with this medication, patient may need rehab/SNF pending physical therapy evaluation Avoid any NSAIDs and contrast, pain control with Tylenol and small dose IV Dilaudid Date of service: 01/27/2024 GI prophylaxis with Protonix, DVT prophylaxis with SCDs due to episodes of hematuria while admitted, once hematuria resolves, patient will be placed on heparin Plan of care was discussed with patient and provider at bedside, Candelario Cox MD Advanced Care Planning: Which of the following were discussed: Hospice care: Yes __ No _x_ Therapeutic options: Yes _x_ No __ Advance directives: Yes _x_ No __ Other discussions: Discussed with who?: Patient Voluntary nature of this service was explained to the patient? Yes _x_ No __ Amount of time spent: 20 minutes CANDELARIO COX MD Jan 27, 2024 19:48
[2024-01-27 20:00] VITALS: BP 126/63; PULSE 99; RESP 16; TEMP 98.6
[2024-01-27] MEDS: finaSTERide 5 MG TABLET PO SCH (20:06)
--- NOTE | 2024-01-27 20:30 | NUR ---
Rounds Dr. Da Silva in to see patient. New orders entered.
--- NOTE | 2024-01-27 21:09 | HMCIMG ---
CHEST 1VW CLINICAL HISTORY: assess for any signficant infiltrates COMPARISON: None TECHNIQUE: Single view of the chest was obtained. FINDINGS: Lungs are clear. Cardiac size upper limits of normal to mildly enlarged. The bony structures are within normal limits. IMPRESSION: Borderline heart size.
[2024-01-27] MEDS: simVASTatin 20 MG TABLET PO SCH (22:15)
[2024-01-27] MEDS: hydroMORPHone 0.5 MG SYG (0.5MG/0.5ML) IVP PRN (22:15)
--- NOTE | 2024-01-27 22:30 | NUR ---
CBI Continuos bladder irrigation [address] bajwa catheter inserted at this time. Hematuria noted. 500 ml of urine output. Stating he is in severe pain. Pain medication administered. Small blood clots seen in urine. After pain medication patient states feeling better. Call light within reach. Fall precautions in place.
[2024-01-28] VITALS (9 sets, daily range): BP systolic 126–157; BP diastolic 66–77; PULSE 77–109; RESP 16–19; TEMP 98–98.9; O2SAT 95–99
--- NOTE | 2024-01-28 00:18 | CONS ---
REQUESTING PHYSICIAN: Candelario Cox MD REASON FOR CONSULTATION: Hydronephrosis and weakness. HISTORY OF PRESENT ILLNESS: An 83-year-old male with his caregiver presented to the hospital with a 2-week history of generalized weakness. The patient has been treated for metastatic prostate cancer, apparently had radiation therapy 2 weeks ago, started, may still be on radiation therapy, is not clear on that himself. The patient has some voiding difficulties. Bladder emptying has been incomplete. He has some hematuria as well. The patient's prostate cancer was diagnosed about 6 years ago, does not recall his most recent PSA. PAST MEDICAL HISTORY: Significant for prostate cancer. PAST SURGICAL HISTORY: Negative. FAMILY HISTORY: Negative for kidney stones. 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 Has 1 son and 1 daughter. Does not smoke or drink. REVIEW OF SYSTEMS: ____ no chest pain. Appetite is poor. He has no nausea, no vomiting, no constipation or diarrhea. No headaches or dizziness or nosebleeds. No joint pain, joint swelling, limitation of movement. He has some weakness. PHYSICAL EXAMINATION: GENERAL: Elderly male, in no acute distress. VITAL SIGNS: Temperature is 97, blood pressure is 160/90 with a pulse of 100. NECK: Has no adenopathy or supraclavicular masses palpable. LUNGS: Lung leon are clear to auscultation. HEART: Heart sounds are best heard in the fifth intercostal space. ABDOMEN: Full, soft, nontender. BACK: No CVA tenderness. EXTERNAL GENITALIA: Phallus not circumcised. Testicles are nontender, no masses. RECTAL: Reveals a normal anal sphincter tone with a flat prostate, about 25 gm, lateral sulci effaced. LABORATORY DATA: Reviewed in detail. White count is 8, hematocrit is 32, platelet count is 332. Sodium 138, potassium is 4.4 and his BUN and creatinine are 24/2.1. Urinalysis shows cloudy yellow urine, specific gravity of 1.020, the patient's pH is 7, nitrites are negative, leukocyte esterase is moderate. He has some red cells and white cells in the urine with moderate amount of bacteria. MEDICATIONS: Carefully reviewed, they include ceftriaxone. He also received Zofran, morphine, amlodipine, losartan, Flomax, and ceftriaxone. IMAGING STUDIES: Reviewed today include a CT scan of the abdomen and pelvis showed a large bladder, diverticulum bilateral hydroureter moderate, and hydronephrosis also moderate with thinning of renal cortex bilaterally. ASSESSMENT: * Bilateral hydronephrosis. * Renal insufficiency. * Prostate cancer. * Failure to thrive. RECOMMENDATIONS: * The patient will have a PSA done. * Place Braun catheter with 3-way 16-Libyan. * If does not improve with Braun catheter and want to replace Braun catheter, the patient will need to proceed with bilateral nephrostomy tube placement. * Bone scan. * Oncology consultation. * Finally once he is discharged, follow up with me as an outpatient in about 2 weeks' time. The patient's concern are answered. Thank you for the opportunity of providing consultation on your patient. TID: [id number] RECEIPT: [id number]
--- NOTE | 2024-01-28 00:52 | CONS ---
NEPHROLOGY CONSULTATION REASON FOR CONSULTATION: Renal failure and multiple other comorbidities. HISTORY OF PRESENT ILLNESS: This is an 83-year-old gentleman. The patient admitted with generalized weakness, found to have renal failure. The patient does have diarrhea for past few days. He has been found to have elevated BUN and creatinine. He has no other associated finding. No other aggravating or relieving factors. The patient has underlying prostate cancer, followed by oncologist. The patient has weakness. PAST MEDICAL HISTORY: As above with prostate cancer, weakness, hypertension. The patient does have other comorbidities. FAMILY HISTORY: Unremarkable. SOCIAL HISTORY: No smoking, alcohol or drug abuse. REVIEW OF SYSTEMS: CONSTITUTIONAL: Has been weak. No fever, chills or rigors. HEENT: With no headache, oral ulcers, sore throat or difficulty swallowing. No new vision complaint. RESPIRATORY: With no cough, expectoration, hemoptysis or pleuritic pain. The patient has respiratory with no cough, expectoration or hemoptysis. CARDIOVASCULAR: No orthopnea, PND. GASTROINTESTINAL: Negative for nausea, vomiting, diarrhea. GENITOURINARY: Negative for dysuria or hematuria. DERMATOLOGICAL: No rashes, pruritus or skin lesion. ENDOCRINE: No polyuria, polydipsia or polyphagia. PSYCHIATRIC: Negative for anxiety, depression or hallucinations. LYMPHATIC AND HEMATOPOIETIC: No bleeding tendencies or swelling noted in lymph node areas. PHYSICAL EXAMINATION: GENERAL: Pale, elderly, lying in bed. VITAL SIGNS: Blood pressure 181/100, pulse 110, respiratory rate is 18, afebrile. HEENT: Head is atraumatic. Pupils are round and reactive. Sclerae are anicteric. Conjunctivae not pale. Oral mucosa is not dry. External appearance of ears and nose is normal. NECK: Without masses, bruits. Thyroid is palpable. Neck has no bruits. CHEST: Shows equal thoracic percussion note being resonant in all areas. CARDIAC: Regular rhythm. No rub, no S3, S4. No parasternal heave. Apical beat is not localized. ABDOMEN: With no guarding or tenderness. Bowel sounds are normoactive. No free fluid. EXTREMITIES: With no edema and no cyanosis or clubbing. BACK: No tenderness or back deformities. LYMPHATIC: With no lymph node swelling in neck or axillary area. LABORATORY DATA: Have been reviewed. The patient has slightly low hemoglobin of 10.4, white cell count normal. Urinalysis ordered. Renal ultrasound ordered. Creatinine is elevated up to 2.1, BUN of 24. Sodium 138. DIAGNOSTIC DATA: EKG has shown sinus rhythm, occasional PVCs, right bundle branch block. Old records have been reviewed. Imaging studies are personally reviewed. The patient has personally reviewed the EKG. PROBLEMS: The patient has: 1. Acute renal failure. 2. Weakness and failure to thrive. 3. Hypertension. 4. Anemia. 5. Urinary tract infection and multiple other comorbidities. UTI is complicated. The patient is critically ill. PLAN: At this time: 1. The patient is being admitted. 2. The patient will have urinalysis, urine culture, blood cultures, renal ultrasound. 3. Intake, output, weight monitoring. 4. Nephro-Julia 1 a day. 5. Nonsteroidal drugs to be avoided. 6. Dose of medicine to be adjusted. 7. If his anemia keeps getting worse iron studies and ferritin. Intake, output, weight, electrolytes will be monitored. IV Dilaudid 0.5 every 6 hours can be used for pain. I have reviewed all the labs and x-rays personally. I have discussed with other team physicians in detail including in the Emergency Room. We will continue monitoring on renal function, electrolytes, anemia and overall status. Condition remained critical and guarded. The patient actually lives alone at home with just a caregiver. Contrast and nephrotoxics should be avoided. Thank you for this consultation. TID: [id number] RECEIPT: [id number]
[2024-01-28] MEDS: acetaMINOPHEN 500 MG TABLET PO PRN (01:56)
[2024-01-28 04:36] LABS: BASOPHILS # (AUTO) 0.02 K/uL (0.00-0.20); BASOPHILS % (AUTO) 0.4 % (0.0-5.0); EOSINOPHILS # (AUTO) 0.05 K/uL (0.00-0.70); EOSINOPHILS % (AUTO) 0.9 % (0.0-8.0); HEMATOCRIT 29.2 % (42-54); IMMATURE GRANULOCYTE ABSOLUTE 0.08 K/uL (0-1); LYMPHOCYTES # (AUTO) 0.6 K/uL (1.0-4.8); LYMPHOCYTES % (AUTO) 10.9 % (21.0-51.0); MEAN CORPUSCULAR HEMOGLOBIN 26.8 pg (27.0-33.0); MEAN CORPUSCULAR HGB CONC 31.2 g/dL (32.0-36.0); MEAN CORPUSCULAR VOLUME 85.9 fL (79-99); MONOCYTES # (AUTO) 0.7 K/uL (0.1-1.0); MONOCYTES % (AUTO) 12.2 % (3.0-13.0); NEUTROPHILS % (AUTO) 74.1 % (40.0-77.0); PLATELET COUNT (AUTO) 265 K/uL (130-400); RED CELL DISTRIBUTION WIDTH 15.4 % (11.0-15.5); WHITE BLOOD COUNT (AUTO) 5.3 K/uL (4.8-10.8)
[2024-01-28 05:14] LABS: ALBUMIN 1.7 g/dL (3.5-5.0); BILIRUBIN,TOTAL 0.3 mg/dL (0.2-1.0); CREATININE 1.8 mg/dL (0.5-1.3); PHOSPHORUS 3.9 mg/dL (2.5-4.9); TOTAL PROTEIN, SERUM 6.4 g/dL (6.0-8.3); URIC ACID 4.3 mg/dL (2.6-7.2)
--- NOTE | 2024-01-28 06:09 | NUR ---
CBI Total intake: 62577 Total output: 27256 True urine: 2200 light pink tinged urine with 2 blood clots seen.
[2024-01-28] MEDS: ENZALUTAMIDE 160 MG PO SCH (09:00)
[2024-01-28] MEDS: MIRABEGRON PO SCH (09:00)
--- NOTE | 2024-01-28 09:30 | NUR ---
Order received and spoke to patient. Patient refused PT x 2 today stating he was in too much pain. Nurse, Melinda, notified. PT team to follow.
[2024-01-28] MEDS: ASPIRIN 81 MG EC TAB PO SCH (09:31)
[2024-01-28] MEDS: furoSEMIDE 20 MG TABLET PO SCH (09:32)
[2024-01-28] MEDS: PANTOPrazole 40 MG TAB DR PO SCH (09:32)
[2024-01-28] MEDS: ISOSORBIDE MONONITRATE 20 MG TABLET PO SCH (09:32)
[2024-01-28] MEDS: morPHINE 2 MG SYG IVP ONE (11:46)
--- NOTE | 2024-01-28 11:57 | HMCSR ---
APPROVED REPORT EXAM: Two-dimensional and M-mode echocardiogram with Doppler and color Doppler. INDICATION ICD: assess LVEF, r/o valvulopathy 2D Dimensions RVDd3.5 cmLVEF(%)63.3 (>50%)LVED Vol(simp.)117.0 mL IVSd1.9 (0.7-1.1cm)FS(%)34 %LVES Vol(simp.)48.0 mL LVDd4.4 (3.8-5.6cm)LA (2D)4.1 (1.6-4.0cm)LVEF(%, simp.)59 % PWd1.5 (0.7-1.1cm)Ao Root(2D)4.0 (2.0-3.7cm)LA ESV INDEX (4CH)38.10 mL/m2 IVSs1.8 cmLVOT diam2.3 (1.8-2.4cm)LA ESV INDEX (2CH)27.70 mL/m2 LVDs2.9 (2.5-4.0cm)IVC diam1.8 cmLA ESV INDEX (BP)33.60 mL/m2 PWs2.0 cm M-Mode Dimensions EPSS0.7 cm LA (MM)4.1 (1.6-4.0cm) Ao Root(MM)3.6 (2.0-3.7cm) Aortic Valve AoV VTI0.2 mAo Mean GR3.0 mmHgLVOT VTI0.12 m DEMOND (VMAX)3.1 cm2AVA (VTI) 3.1 cm2 Mitral Valve MV E Vmax42.4 cm/sDECEL Qorl949 ms MV A Vmax71.6 cm/sP 1/2 T64 ms E/A ratio0.6MVA (PHT)3.4 cm2 TDI E/E' Lateral4.3 Lateral E' Peak V9.90 cm/s Left Ventricle The left ventricle is normal size. Normal wall motion Moderate concentric left ventricular hypertroph y. LVEF is 55-60%. The LV diastolic function was unable to be assessed due to atrial arrhythmia. Right Ventricle The right ventricle is normal size. The right ventricular systolic function is normal. Atria The left atrium size is normal. The right atrium size is normal. Aortic Valve The aortic valve is mildly thickened but opens well. No aortic regurgitation is present. There is no aortic valvular stenosis. Mitral Valve The mitral valve is normal in structure. There is no mitral valve regurgitation noted. There is no mi tral valve stenosis. Tricuspid Valve The tricuspid valve is normal in structure. There is no tricuspid valve regurgitation noted. Pulmonic Valve Not well seen There is no pulmonic valvular regurgitation. Great Vessels The aortic root is normal in size. The IVC is normal in size and collapses >50% with inspiration. Pericardium There is no pericardial effusion. Conclusion LVEF is 55-60%. The LV diastolic function was unable to be assessed due to atrial arrhythmia. Moderate concentric left ventricular hypertrophy. The left ventricle is normal size. Normal wall motion The aortic valve is mildly thickened but opens well. There is no pericardial effusion. Normal pulmonary pressure Study quality was adequate
--- NOTE | 2024-01-28 13:49 | CONS ---
CONSULT NOTE: Mr. Millard is an 83-year-old male with a past medical history significant for CHF, CAD, hyperlipidemia, and prostate cancer. Patient is status post radiation therapy. Patient only received 1 dose of Lupron 45 mg IM on 05/22/2019. Patient was found to have anemia and was sent for evaluation for that reason. Patient was found to have hypersegmented neutrophils on peripheral blood smear and was recommended folic acid and vitamin B12 daily. Patient was also found to have iron deficiency and was recommended oral iron. Patient is being followed by urology at [place]. Patient is from [place]. PET/CT done 08/02/2023 showed diffuse heterogeneous uptake within the prostate. There are 2 more focal areas of uptake involving peripheral zone bilaterally consistent with recurrent disease. There is at least 2 lymph nodes associated with focal increase in the left pelvis consistent with recurrent disease. There is few scattered prominent lymph nodes in retroperitoneum. There are also scattered prominent lymph nodes in the mediastinum. Patient has bilateral hydronephrosis. Patient has been recommended hormonal therapy consisting of enzalutamide and Lupron. Patient received a dose of the 6 month Eligard 45mg on 08/30/2023. He is currently taking Xtandi and reports tolerating the medication well. Patient was next hormone injection 02/15/2024. Patient finished his radiation therapy treatment 2023 Patient was admitted to the hospital because UTI Patient was found to have hematuria This patient was started on bladder irrigation with the urine is clear now. Patient complaining of pelvic pain which improved. But the patient is asking for morphine to be done every 2-3 hours as needed Past Medical History: Prostate Cancer Anemia Morbid Obesity Hyperlipidemia Benign Prostatic Hypertrophy Measles Mumps Congestive Heart Failure Coronary Artery Disease Hypertension Myocardial Infarct Renal Calculi Urinary Tract Infection Gastroesophageal Reflux Heartburn Anemia Vitamin D Deficiency Arthritis Past Surgical History: 03/2017, Procedure: Biopsy of prostate (procedure) 12/26/2016, Procedure: Nephrostomy with tube drainage (procedure) 2014, Procedure: Cardiac catheterization, right heart and transseptal left (procedure) 2014, Procedure: Total knee replacement (procedure) 2010, Procedure: Cholecystectomy (procedure) Medications: Aspirin Oral 81 mg 1 TABLET(S) PO daily Glipizide Oral 5 mg orally daily Nitroglycerin Sublingual 0.4 mg tablet, sublingual 1 TABLET(S), SUBLINGUAL SL as directed Sildenafil Oral 50 mg orally daily Tamsulosin Oral 0.4 mg capsule 1 CAPSULE PO daily as directed Enzalutamide Oral 40 mg capsule 160 mg orally daily. Take with or without food. Ferrous Sulfate Oral 325 mg (65 mg iron) tablet 1 TABLET(S) PO daily Furosemide Oral 20 mg tablet 1 TABLET(S) PO daily Levothyroxine Oral 25 mcg orally daily Metformin Oral 500 mg orally 2 times per day Enzalutamide Oral 40 mg capsule 160 mg orally daily. Take with or without food. Empagliflozin Oral 25 mg orally daily Finasteride Oral (Proscar) 5 mg tablet 1 TABLET(S) PO daily Omeprazole Oral Delayed Release Tablet 20 mg tablet,delayed release (DR/EC) 1 TABLET(S), ENTERIC COATED PO daily Simvastatin Oral 40 mg orally every day at bedtime Ergocalciferol Oral 50 mcg (2,000 unit) tablet 1 TABLET(S) PO daily Medications reviewed and reconciled with patient. 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 [employer] Alcohol Moderate Denies Drugs Family History: Father: Mother: ROS: General: reports weight loss, no anorexia, no fevers, no chills, reports fatigue HEENT: no sore throat, no epistaxis, no earache, no oral sores Cardiac: no chest pain, no orthopnea, no paroxysmal nocturnal dyspnea, no palpitations, no dizziness, no lightheadedness, no ankle swelling Pulmonary: no cough, no hemoptysis Genitourinary: no dysuria, reports hematuria, no nocturia Gastrointestinal: no nausea, no vomiting, no dysphagia, no diarrhea, no melena, no hematochezia Musculoskeletal: no back pain, no joint pain, no joint swelling, no bone pain Dermatological: no rash, no changes of the skin that worry Endocrine: no polyuria, no excessive thirst, no facial swelling Neurological: no motor weakness in extremities, no severe generalized weakness Vitals: Height: 70.25 in; Weight: 210.5 lb; Blood pressure: 134/72, Pulse: 114, Temperature: 97.5 F, Respirations: 16, Pain Scale: 0 Karnofsky: 90% (Date: 10/25/2023) Physical Exam: General: No acute distress. Well-developed. HEENT: Normocephalic. Atraumatic. EOMI. PERRLA. Moist mucous membranes. No oral lesions. Oral cavity is clear. Neck: Supple. No cervical adenopathy. No supraclavicular adenopathy. Spine: Nontender to percussion. Lungs: No increased work of breathing. No use of accessory muscles. Normal lung sounds. Heart: Good peripheral perfusion. Abdomen: Soft. Extremities: No lower extremity edema. No cyanosis. No clubbing. Normal 2+ pulses bilaterally. Neurological: Intact. 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 Normal upper extremity strength. Impression: 1. History of prostate cancer status post radiation therapy treatment. He is a previous PSA was 3.4. PET CT scan was done 08/02/2023 which showed diffuse heterogeneous uptake within the prostate. There is 2 more focal areas of uptake involving the peripheral zone bilaterally consistent with recurrent disease. There is at least 2 lymph n ode associated with focal increase in the left pelvis consistent with recurrent disease. There is few scattered prominent lymph node in the retroperitoneum. There is scattered prominent lymph node in the mediastinum. There is bilateral hydronephrosis and hydro ureters. Patient received a dose of the 6 month Eligard 45mg on 08/30/2023. He is currently taking Xtandi and reports tolerating the medication well. Patient was next hormone injection 02/15/2024. Patient to finish his radiation therapy treatment 2023 Patient complaining of first time hematuria today. 2. Anemia. Which is corrected. Hemoglobin 14.7 g/deciliter. Patient was found to have iron deficiency anemia. 3. Hypertension 4. Hyperlipidemia 5. Coronary artery disease 6. Hematuria status post bladder irrigation 7. Pelvic pain 8. UTI Plan: 1. Patient received a dose of the 6 month Eligard 45mg on 08/30/2023. He is currently taking Xtandi and reports tolerating the medication well. Patient was next hormone injection 02/15/2024. Patient finish his radiation therapy treatment 2023 2. This patient have hematuria most likely due to the radiation therapy treatment. This patient is receiving irrigation of the bladder with the urine is clear. Will follow recommendation from urology. 3. This patient peripheral blood showed microcytic hypochromic red blood cell. This patient to be started on IV iron 4. we will ask for iron study to be done. If the iron study showed normal levels then this patient could benefit possibly from Procrit 5. Continue pain medication with morphine 2 mg every 3 hours as needed as needed. Laboratory Tests Test 01/28/24 03:54 White Blood Count 5.3 K/uL (4.8-10.8) # Red Blood Count 3.40 MIL/uL (4.50-6.20) L Hemoglobin 9.1 g/dL (14.0-18.0) L Hematocrit 29.2 % (42-54) L Mean Corpuscular Volume 85.9 fL (79-99) Mean Corpuscular Hemoglobin 26.8 pg (27.0-33.0) L Mean Corpuscular Hemoglobin Concent 31.2 g/dL (32.0-36.0) L Red Cell Distribution Width 15.4 % (11.0-15.5) Platelet Count 265 K/uL (130-400) Mean Platelet Volume 9.8 fL (7.5-10.5) Immature Granulocyte % (Auto) 1.5 % (0-1) H Neutrophils (%) (Auto) 74.1 % (40.0-77.0) Lymphocytes (%) (Auto) 10.9 % (21.0-51.0) L Monocytes (%) (Auto) 12.2 % (3.0-13.0) Eosinophils (%) (Auto) 0.9 % (0.0-8.0) Basophils (%) (Auto) 0.4 % (0.0-5.0) Neutrophils # (Auto) 4.0 K/uL (1.8-7.7) Lymphocytes # (Auto) 0.6 K/uL (1.0-4.8) L Monocytes # (Auto) 0.7 K/uL (0.1-1.0) Eosinophils # (Auto) 0.05 K/uL (0.00-0.70) Basophils # (Auto) 0.02 K/uL (0.00-0.20) Absolute Immature Granulocyte (auto 0.08 K/uL (0-1) Nucleated Red Blood Cells 0.0 % (0.0-0.19) Sodium Level 138 mmol/L (136-145) Potassium Level 4.0 mmol/L (3.5-5.1) Chloride Level 108 mmol/L (101-111) Carbon Dioxide Level 20 mmol/L (21-32) L Blood Urea Nitrogen 19 mg/dL (7-18) H Creatinine 1.8 mg/dL (0.5-1.3) H Glomerular Filtration Rate Calc 37 mL/min (>90) Random Glucose 95 mg/dL (70-105) Uric Acid 4.3 mg/dL (2.6-7.2) Total Calcium 8.5 mg/dL (8.5-10.1) Phosphorus Level 3.9 mg/dL (2.5-4.9) Total Bilirubin 0.3 mg/dL (0.2-1.0) Aspartate Amino Transf (AST/SGOT) 18 U/L (10-37) Alanine Aminotransferase (ALT/SGPT) 12 U/L (12-78) Alkaline Phosphatase 183 U/L (50-136) H Total Protein 6.4 g/dL (6.0-8.3) Albumin 1.7 g/dL (3.5-5.0) L LAB RESULTS 01/28/24 03:54: White Blood Count 5.3#, Red Blood Count 3.40L, Hemoglobin 9.1L, Hematocrit 29.2L, Mean Corpuscular Volume 85.9, Mean Corpuscular Hemoglobin 26.8L, Mean Corpuscular Hemoglobin Concent 31.2L, Red Cell Distribution Width 15.4, Platelet Count 265, Mean Platelet Volume 9.8, Immature Granulocyte % (Auto) 1.5H, Neutrophils (%) (Auto) 74.1, Lymphocytes (%) (Auto) 10.9L, Monocytes (%) (Auto) 12.2, Eosinophils (%) (Auto) 0.9, Basophils (%) (Auto) 0.4, Neutrophils # (Auto) 4.0, Lymphocytes # (Auto) 0.6L, Monocytes # (Auto) 0.7, Eosinophils # (Auto) 0.05, Basophils # (Auto) 0.02, Absolute Immature Granulocyte (auto 0.08, Nucleated Red Blood Cells 0.0, Sodium Level 138, Potassium Level 4.0, Chloride Level 108, Carbon Dioxide Level 20L, Blood Urea Nitrogen 19H, Creatinine 1.8H, Glomerular Filtration Rate Calc 37, Random Glucose 95, Uric Acid 4.3, Total Calcium 8.5, Phosphorus Level 3.9, Total Bilirubin 0.3, Aspartate Amino Transf (AST/SGOT) 18, Alanine Aminotransferase (ALT/SGPT) 12, Alkaline Phosphatase 183H, Total Protein 6.4, Albumin 1.7L 01/27/24 12:00: Urine Color YELLOW, Urine Appearance CLOUDYH, Urine pH 7.0, Urine Specific [place] 1.020, Urine Protein 30H, Urine Glucose (UA) NEGATIVE, Urine Ketones NEGATIVE, Urine Occult Blood LARGEH, Urine Nitrate NEGATIVE, Urine Bilirubin NEGATIVE, Urine Urobilinogen 0.2, Urine Leukocyte Esterase MODERATEH, Urine RBC 26-50H, Urine WBC 26-50H, Urine Squamous Epithelial Cells None Seen, Urine Bacteria ModerateH 01/27/24 11:50: White Cell Morphology Comment See comments, Erythrocyte Sedimentation Rate 97H, Magnesium Level 2.00, Direct Bilirubin 0.1, Troponin I High Sensitivity 17, C- Reactive Protein, Quantitative 30.20H, Lipase 26, Procalcitonin 0.11 RAEMZ MAGAÑA MD Jan 28, 2024 13:49
--- NOTE | 2024-01-28 13:59 | PN ---
NEPHROLOGY PROGRESS NOTE Date/Time Patient Seen: Jan 28, 2024 SUBJECTIVE: This is a 83-year-old male with underlying history of prostate cancer with recent history of radiation treatment maintained on outpatient treatment with enzalutamide, chronic kidney disease, hypertension, hyperlipidemia, BPH. He presented to the ER for further evaluation with back pain, generalized weakness and hematuria He is followed by Dr Villa. He has been seen by urology who recommend CBI Noted with elevated BUN/creatinine We are consulted for renal failure Renal function is improving Electrolytes are stable UA positive for proteinuria and leukocyte esterase He has been started on antibiotics He was seen in the medical floor, Prognosis remains guarded. REVIEW OF SYSTEMS: GENERAL: Negative for any nausea, vomiting, fevers, chills, or weight loss. NEUROLOGIC: Negative for any blurry vision, blind spots, double vision, facial asymmetry, dysphagia, dysarthria, hemiparesis, hemisensory deficits, vertigo, ataxia. HEENT: Negative for any head trauma, neck trauma, neck stiffness, photophobia, phonophobia, sinusitis, rhinitis. CARDIAC: Negative for any chest pain, dyspnea on exertion, paroxysmal nocturnal dyspnea, peripheral edema. PULMONARY: Negative for any shortness of breath, wheezing, COPD, or TB exposure. GASTROINTESTINAL: Negative for any abdominal pain, nausea, vomiting, bright red blood per rectum, melena. GENITOURINARY: Negative for any dysuria, hematuria, incontinence. INTEGUMENTARY: Negative for any rashes, cuts, insect bites. RHEUMATOLOGIC: Negative for any joint pains, photosensitive rashes, history of vasculitis or kidney problems. HEMATOLOGIC: Negative for any abnormal bruising, frequent infections or bleeding. Vital Signs (last 8hr) Date Time Temp Pulse Resp B/P (MAP) Pulse Ox O2 Delivery O2 Flow Rate FiO2 01/28/24 12:21 98.2 109 18 126/76 97 Room Air 21 01/28/24 08:35 98.1 84 17 157/77 99 Room Air 21 01/28/24 08:00 99 Room Air* 0 21 PHYSICAL EXAM: GENERAL: Alert and oriented x 3. No acute distress. Well-nourished. EYES: EOMI. Anicteric. HENT: Moist mucous membranes. No scleral icterus. No cervical lymphadenopathy. LUNGS: Clear to auscultation bilaterally. No accessory muscle use. CARDIOVASCULAR: Regular rate and rhythm. No murmur. No JVD. ABDOMEN: Soft, non-tender and non-distended. No palpable masses. EXTREMITIES: No edema. Non-tender.?SKIN: No rashes or lesions. Warm. NEUROLOGIC: No focal neurological deficits. CN II-XII grossly intact, but not individually tested. PSYCHIATRIC: Cooperative. Appropriate mood and affect. Current Medications Medications (Trade) Dose Ordered Sig/Zaida Route PRN Reason Start Time Stop Time Status Last Admin Dose Admin Acetaminophen (TYLenol 500MG TAB) 500 mg Q6H PRN PO MILD PAIN (1-3) 01/27/24 14:30 02/26/24 14:29 01/28/24 06:53 500 MG Amlodipine Besylate (NorvASC 5MG TAB) 5 mg Q24H PO 01/27/24 14:30 02/26/24 14:29 01/27/24 16:49 5 MG Aspirin (Aspirin 81mg Ec Tab) 81 mg DAILY PO 01/28/24 09:00 02/27/24 08:59 01/28/24 09:31 81 MG Ceftriaxone Sodium (ROCEphine 1G INJ) 1 gm ONCE IVPB 01/27/24 13:30 01/27/24 21:30 DC 01/27/24 13:35 1 GM Finasteride (PROscar 5 MG TAB) 5 mg HS PO 01/27/24 21:00 02/26/24 20:59 01/27/24 20:06 5 MG Furosemide (LASix 20MG TAB) 20 mg DAILY PO 01/28/24 09:00 02/27/24 08:59 01/28/24 09:32 20 MG Home Med (Home Medication) (Enzalutamide (Xtandi) 160 MG) AM PO 01/28/24 09:00 02/27/24 08:59 Home Med (Home Medication) (Mirabegron (Myrbetriq) 1 TAB) DAILY PO 01/28/24 09:00 02/27/24 08:59 Hydralazine HCl (APRESOLine 20MG INJ) 10 mg Q6H PRN IV ADMINISTER FOR SBP > 170 01/27/24 15:30 02/26/24 15:29 01/27/24 17:28 10 MG Hydromorphone HCl (DiLAUDid 0.5MG INJ) 0.2 mg Q6H PRN IVP SEVERE PAIN (7-10) 01/27/24 20:30 02/01/24 20:29 01/28/24 05:16 0.2 MG Isosorbide Mononitrate (Ismo) 30 mg AM PO 01/28/24 09:00 02/27/24 08:59 01/28/24 09:32 30 MG Losartan Potassium (CozAAR 50 mg TAB) 50 mg DAILY PO 01/28/24 16:00 01/27/24 17:41 DC Losartan Potassium (CozAAR 50 mg TAB) 50 mg Q24H PO 01/27/24 18:00 02/27/24 15:59 01/27/24 18:29 50 MG Morphine Sulfate (morPHINE 2MG SYG) 2 mg Q6H PRN IVP SEVERE PAIN (7-10) 01/27/24 14:30 01/27/24 20:16 DC Ondansetron HCl (zoFRAN 4MG INJ) 4 mg Q6H PRN IVP NAUSEA/VOMITING 01/27/24 16:00 02/26/24 15:59 Pantoprazole Sodium (PROTonix 40MG TAB) 40 mg ACBKFST PO 01/28/24 09:00 02/27/24 08:59 01/28/24 09:32 40 MG Piperacillin Sod/ Tazobactam Sod (Zosyn 3.375gm+NS 50ml) 3.375 gm Q12H IVPB 01/27/24 14:30 02/06/24 14:29 01/28/24 03:27 3.375 GM Simvastatin (zoCOR) 80 mg HS PO 01/27/24 21:00 02/26/24 20:59 01/27/24 22:15 80 MG Sodium Chloride 1,000 ml @ 50 mls/hr Q20H IV 01/27/24 14:30 02/26/24 14:29 01/28/24 09:43 50 MLS/HR Tamsulosin HCl (FloMAX) 0.4 mg BID PO 01/27/24 21:00 02/26/24 20:59 01/28/24 09:31 0.4 MG Tamsulosin HCl (FloMAX) 0.4 mg ONCE PO 01/27/24 17:00 01/27/24 21:00 DC 01/27/24 18:29 0.4 MG LABORATORY: [ ] Hematology Labs: Test 01/28/24 03:54 01/27/24 11:50 Range/Units White Blood Count 5.3 # 4.8-10.8 K/uL Red Blood Count 3.40 L 4.50-6.20 MIL/uL Hemoglobin 9.1 L 14.0-18.0 g/dL Hematocrit 29.2 L 42-54 % Mean Corpuscular Volume 85.9 79-99 fL Mean Corpuscular Hemoglobin 26.8 L 27.0-33.0 pg Mean Corpuscular Hemoglobin Concent 31.2 L 32.0-36.0 g/dL Red Cell Distribution Width 15.4 11.0-15.5 % Platelet Count 265 130-400 K/uL Mean Platelet Volume 9.8 7.5-10.5 fL Immature Granulocyte % (Auto) 1.5 H 0-1 % Neutrophils (%) (Auto) 74.1 40.0-77.0 % Lymphocytes (%) (Auto) 10.9 L 21.0-51.0 % Monocytes (%) (Auto) 12.2 3.0-13.0 % Eosinophils (%) (Auto) 0.9 0.0-8.0 % Basophils (%) (Auto) 0.4 0.0-5.0 % Neutrophils # (Auto) 4.0 1.8-7.7 K/uL Lymphocytes # (Auto) 0.6 L 1.0-4.8 K/uL Monocytes # (Auto) 0.7 0.1-1.0 K/uL Eosinophils # (Auto) 0.05 0.00-0.70 K/uL Basophils # (Auto) 0.02 0.00-0.20 K/uL Absolute Immature Granulocyte (auto 0.08 0-1 K/uL Nucleated Red Blood Cells 0.0 0.0-0.19 % White Cell Morphology Comment See comments Erythrocyte Sedimentation Rate 97 H 0-20 MM/HR Chemistry Labs: Test 01/28/24 03:54 01/27/24 11:50 Range/Units Sodium Level 138 136-145 mmol/L Potassium Level 4.0 3.5-5.1 mmol/L Chloride Level 108 101-111 mmol/L Carbon Dioxide Level 20 L 21-32 mmol/L Blood Urea Nitrogen 19 H 7-18 mg/dL Creatinine 1.8 H 0.5-1.3 mg/dL Glomerular Filtration Rate Calc 37 >90 mL/min Random Glucose 95 70-105 mg/dL Uric Acid 4.3 2.6-7.2 mg/dL Total Calcium 8.5 8.5-10.1 mg/dL Phosphorus Level 3.9 2.5-4.9 mg/dL Total Bilirubin 0.3 0.2-1.0 mg/dL Aspartate Amino Transf (AST/SGOT) 18 10-37 U/L Alanine Aminotransferase (ALT/SGPT) 12 12-78 U/L Alkaline Phosphatase 183 H 50-136 U/L Total Protein 6.4 6.0-8.3 g/dL Albumin 1.7 L 3.5-5.0 g/dL Magnesium Level 2.00 1.80-2.40 mg/dL Direct Bilirubin 0.1 0.0-0.3 mg/dL Troponin I High Sensitivity 17 4-75 ng/L C-Reactive Protein, Quantitative 30.20 H 0.5-3.0 mg/L Lipase 26 16-77 U/L Procalcitonin 0.11 0.05-0.5 ng/mL DIAGNOSTICS / RADIOLOGY: REASON: assess LVEF, r/o valvulopathy, EKG with Dr. Quoc SANDOVAL to read ORDERING PHYSICIAN: NADER TATE MD PROCEDURE: ECHO CMP - ECHO 2-D COMPLETE APPROVED REPORT EXAM: Two-dimensional and M-mode echocardiogram with Doppler and color Doppler. INDICATION ICD: assess LVEF, r/o valvulopathy 2D Dimensions RVDd 3.5 cm LVEF(%) 63.3 (>50%) LVED Vol(simp.) 117.0 mL IVSd 1.9 (0.7-1.1cm) FS(%) 34 % LVES Vol(simp.) 48.0 mL LVDd 4.4 (3.8-5.6cm) LA (2D) 4.1 (1.6-4.0cm) LVEF(%, simp.) 59 % PWd 1.5 (0.7-1.1cm) Ao Root(2D) 4.0 (2.0-3.7cm) LA ESV INDEX (4CH) 38.10 mL/m2 IVSs 1.8 cm LVOT diam 2.3 (1.8-2.4cm) LA ESV INDEX (2CH) 27.70 mL/m2 LVDs 2.9 (2.5-4.0cm) IVC diam 1.8 cm LA ESV INDEX (BP) 33.60 mL/m2 PWs 2.0 cm M-Mode Dimensions EPSS 0.7 cm LA (MM) 4.1 (1.6-4.0cm) Ao Root(MM) 3.6 (2.0-3.7cm) Aortic Valve AoV VTI 0.2 m Ao Mean GR 3.0 mmHg LVOT VTI 0.12 m DEMOND (VMAX) 3.1 cm2 DEMOND (VTI) 3.1 cm2 Mitral Valve MV E Vmax 42.4 cm/s DECEL Time 106 ms MV A Vmax 71.6 cm/s P 1/2 T 64 ms E/A ratio 0.6 MVA (PHT) 3.4 cm2 TDI E/E' Lateral 4.3 Lateral E' Peak V 9.90 cm/s Left Ventricle The left ventricle is normal size. Normal wall motion Moderate concentric left ventricular hypertrophy. LVEF is 55-60%. The LV diastolic function was unable to be assessed due to atrial arrhythmia. Right Ventricle The right ventricle is normal size. The right ventricular systolic function is normal. Atria The left atrium size is normal. The right atrium size is normal. Aortic Valve The aortic valve is mildly thickened but opens well. No aortic regurgitation is present. There is no aortic valvular stenosis. Mitral Valve The mitral valve is normal in structure. There is no mitral valve regurgitation noted. There is no mitral valve stenosis. Tricuspid Valve The tricuspid valve is normal in structure. There is no tricuspid valve regurgitation noted. Pulmonic Valve Not well seen There is no pulmonic valvular regurgitation. Great Vessels The aortic root is normal in size. The IVC is normal in size and collapses >50% with inspiration. Pericardium There is no pericardial effusion. Conclusion LVEF is 55-60%. The LV diastolic function was unable to be assessed due to atrial arrhythmia. Moderate concentric left ventricular hypertrophy. The left ventricle is normal size. Normal wall motion The aortic valve is mildly thickened but opens well. There is no pericardial effusion. Normal pulmonary pressure Study quality was adequate DICTATED BY: YENNIFER SEXTON MD DATE: 01/28/24 0932 REASON: assess for any signficant infiltrates ORDERING PHYSICIAN: NADER TATE MD PROCEDURE: CXR1VW - CHEST 1VW CHEST 1VW CLINICAL HISTORY: assess for any signficant infiltrates COMPARISON: None TECHNIQUE: Single view of the chest was obtained. FINDINGS: Lungs are clear. Cardiac size upper limits of normal to mildly enlarged. The bony structures are within normal limits. IMPRESSION: Borderline heart size. DICTATED BY: MONICA FALCON DO DATE: 01/27/242105 REASON: WEAKNESS, X 2 WEEKS ORDERING PHYSICIAN: NADER TATE MD PROCEDURE: HEAD WO - CT HEAD/BRAIN W/O CONTRAST CT HEAD WITHOUT CONTRAST INDICATION: Weakness TECHNIQUE: Noncontrast axial helical CT images from the vertex through the skull base using 5 mm slice thickness without contrast material. Coronal and sagittal reconstructions were also included. Dose reduction techniques was used using integrated, automated and adaptive dose reduction exposure control. CT was performed with one or more of the following dose reduction techniques: Automated exposure control, adjustment of the mA and/or kV according to patient size, or use of iterative reconstruction technique. COMPARISON: None FINDINGS: Scattered and coalescent subcortical and periventricular white matter low attenuating areas likely represent residual of chronic small vessel arteriopathy and/or remote vascular insult. Generalized mild cerebral cortical atrophy is present.. No evidence for abnormal extra-axial fluid collections or masses. The ventricles and sulci are normal in size and configuration. No evidence for intracranial parenchymal, epidural, or subdural hemorrhage, mass effect or midline shift. The dubon-white matter differentiation is well preserved. No secondary evidence to suggest acute ischemia. Mild calcific plaque is present along the john of the cavernous segments of both internal carotid arteries. The brainstem and cerebellum appear normal. The visualized orbits appear unremarkable. The visible paranasal sinuses and mastoid air cells are clear. The calvarium appears normal. IMPRESSION: Chronic white matter ischemic changes, mild brain atrophy, and arteriosclerotic disease as described, without acute component. DICTATED BY: ANMOL CHEN MD DATE: 01/27/24 1446 REASON: PROSTATE CANCER, ASSESS FOR HYDRONEPHROSIS, HX OF CKD ORDERING PHYSICIAN: NADER TATE MD PROCEDURE: ABD PEL WO - CT ABDOMEN/PELVIS W/O CONTRAST CT ABDOMEN WITHOUT CONTRAST. CT PELVIS WITHOUT CONTRAST. INDICATION: Prostate cancer, evaluate for hydronephrosis TECHNIQUE: Routine transaxial imaging using 5 mm slice thickness through the abdomen and pelvis without the administration of IV contrast. Thin slice reconstructions are also provided. Coronal and sagittal reformatted images acquired for interpretation. CT was performed with one or more of the following dose reduction techniques: Automated exposure control, adjustment of the mA and/or kV according to patient size, or use of iterative reconstruction technique. COMPARISON: 06/07/2023 FINDINGS: ON NONCONTRAST IMAGING: ABDOMEN: Heart size is normal. Scarring at both lung bases. Moderate bilateral hydroureteronephrosis. The liver is normal in size and smooth in contour without biliary duct dilation. The spleen is normal in size and attenuation. The gallbladder is absent. Several miniscule calcifications within the pancreatic parenchyma without pancreatic duct dilation. The adrenal glands appear normal. No significant abdominal, retrocrural or retroperitoneal adenopathy noted. No evidence for intra-abdominal free air or organized fluid collection. Mild calcific plaque is noted along the abdominal aortic and iliac vessel john without aneurysmal dilation. PELVIS: Small fat-containing nonobstructing left inguinal hernia. Chronic-appearing urinary bladder wall thickening, but associated mild surrounding inflammatory fat stranding. No evidence for free air or organized pelvic fluid collection. No significant pelvic adenopathy detected. Several diverticula along the distal colon. Terminal ileum appears unremarkable. The appendix appears normal. Prostate gland is enlarged. Visible osseous structures are intact. IMPRESSION: 1. Enlarged prostate gland, findings suggesting acute on chronic cystitis, and moderate bilateral hydroureteronephrosis. 2. Distal colonic diverticulosis. 3. Chronic pancreatitis. 4. Small fat-containing nonobstructing left inguinal hernia. DICTATED BY: ANMOL CHEN MD DATE: 01/27/24 1446 ASSESSMENT: Acute on chronic renal failure Acute on chronic bilateral moderate hydroureteronephrosis Complicated urinary tract infection with significant cystitis Hematuria Recent fall Hypertensive urgency Underlying history of prostate cancer Recent history of syncope Debility/frailty/deconditioning, Moderate to severe protein calorie malnutrition with associated 20 lb weight loss in one month Rule out radiation cystitis Hypertension Hyperlipidemia GERD BPH PLAN: [ ] MAYDA JOHNSON [facility] Jan 28, 2024 13:59
--- NOTE | 2024-01-28 14:21 | NUR ---
Nutrition consult per wt loss Reviewed labs, notes, and medications. Pt with diarrhea POA, w/ prostat CA, on HH diet, IV fluids, iv abx, sedated, elevated BUN 19, elevated Cr 1.8, elevated CRP per chart review. Wt via bed scale, no edema, last BM 01/27/24, well nourished, no wounds, adequate nutrition per nursing. Consider probiotics per diarrhea. Recommendations: -Provide HH + 6 small meals + ensure HP qd w/ am tray -Monitor PO intake -Encourage PO intake as able -Monitor BM -If no BM >3 days consider stool softener -Consider probiotics QD per diarrhea -Monitor electrolytes -Replenish electrolytes per protocol -Monitor wts -Reweigh as able -Order Vit D, vit b-12 labs to rule out deficiencies -Provide MVI + b-complex if medically feasible -Texture per GASTROENTEROLOGY TEACHER recs -Recommend Pt to follow up with PCP -Monitor goals of care RD to follow + available for consult per protocol Addendum: 01/28/24 at [address] Amended: Links added.
--- NOTE | 2024-01-28 15:03 | HMCIMG ---
NM BONE SCAN WHOLE BODY REASON: hx of prostate cancer . COMPARISON: None TECHNIQUE: Nuclear renal scan was performed. FINDINGS: There appears be bilateral hydronephrosis with contrast retention mostly in the right kidney. Small amount of activity is seen in the bladder. There are degenerative changes with increased activities in the shoulders, elbows, knees and ankles bilaterally. There is area with increase activity in the right distal humerus of questionable etiology. Clinical correlation is recommended to rule out bony lesion. No other scintigraphic evidence of bone metastases is seen. IMPRESSION: Findings as described above.
--- NOTE | 2024-01-28 15:24 | PN ---
[facility] PROGRESS NOTE Date of Service: Jan 28, 2024 Time of Service: 14:55 SUBJECTIVE: Patient is seen at the bedside. He is awake, alert and oriented. Vitals temperature 98.1, pulse 84, respiratory rate 17, blood pressure 155/77 SpO2 99% on room air. He complains of diffuse, constant, severe pelvic pain, loss of appetite, nausea. No acute events last night. He denies headache, dizziness, vomiting, chest pain, palpitations, diarrhea. He had a bowel movement in the morning. Braun's catheter is in place with 1.5 L pink tinged UO. LABS: CBC hemoglobin 9.1, CMP BUN 19, creatinine decreased from 2.1 To 1.8, alkaline phosphatase 208. 2D echo resulted in LVEF is 55-60%, moderate concentric left ventricular hypertrophy. CT abdomen/pelvis resulted in enlarged prostate gland, findings suggesting acute on chronic cystitis, and moderate bilateral hydroureteronephrosis, Distal colonic diverticulosis, Chronic pancreatitis and small fat-containing nonobstructing left inguinal hernia. CT head and chest x-ray resulted in no acute findings. Pending bone scan results. REVIEW OF SYSTEMS CONSTITUTIONAL: Denies fevers, chills, or night sweats. NEUROLOGICAL: Recent history of fall ENT: No hearing loss, otalgia, otorrhea, rhinitis, rhinorrhea, hoarseness, or sore throat. CARDIOVASCULAR: Denies any exertional angina, dyspnea on exertion, orthopnea, paroxysmal nocturnal dyspnea, palpitations, life-threatening arrhythmias, claudication. PULMONARY: Denies any shortness of breath, cough, phlegm/sputum, hemoptysis, pleuritic chest pain. SLEEP: Denies morning headaches, daytime somnolence or napping. Denies difficulty falling asleep, staying asleep, waking from sleep. Denies knowledge of snoring. GASTROINTESTINAL: Reports having nausea, with poor oral intake and associated weight loss, diffuse pelvic pain GENITOURINARY: Suprapubic pain, cloudy pinkish tinged urine, dysuria ENDOCRINOLOGIC: Denies polyuria, polydipsia, polyphagia or heat/cold intolerances. HEMATOLOGIC: Denies thrombophilia/previous clots, or coagulopathy/bleeding disorders. ONCOLOGIC: Denies personal history of malignancy. DERMATOLOGIC: Denies rashes or pruritus. PSYCHIATRIC: Denies any suicidal or homicidal ideation. Denies hallucinations. PHYSICAL EXAM GENERAL APPEARANCE: The patient is awake, alert, and oriented, in no acute cardiopulmonary distress. NEUROLOGICAL: Cranial nerves II-XII grossly intact. Motor is 5/5 in bilateral upper and lower extremities proximal to distal. No sensory deficits. HEENT: Face is symmetric. Pupils are equal and reactive. Extraocular movements are intact. NECK: Supple. No JVD. No thyromegaly. No submental, submandibular, pre-/postauricular, occipital or supraclavicular lymphadenopathy. CHEST: Normal chest expansion. No Telemetry. LUNGS: Absence of any rales, rhonchi or any wheezing. CARDIOVASCULAR: Regular. S1 and S2 normal. No appreciable rubs, murmurs or gallops. ABDOMEN: Soft, tenderness in pelvic region and nondistended. There is no rebound, voluntary guarding, or rigidity. : Deferred. No Braun. EXTREMITIES: Non-edematous and not cyanotic. No clubbing. Good capillary refill. SKIN: No skin breakdown. Vital Signs (last 8hr) Date Time Temp Pulse Resp B/P (MAP) Pulse Ox O2 Delivery O2 Flow Rate FiO2 01/28/24 12:21 98.2 109 18 126/76 97 Room Air 21 01/28/24 08:35 98.1 84 17 157/77 99 Room Air 21 01/28/24 08:00 99 Room Air* 0 21 LABS: Laboratory: Test 01/28/24 03:54 01/27/24 12:00 01/27/24 11:50 Range/Units White Blood Count 5.3 # 4.8-10.8 K/uL Red Blood Count 3.40 L 4.50-6.20 MIL/uL Hemoglobin 9.1 L 14.0-18.0 g/dL Hematocrit 29.2 L 42-54 % Mean Corpuscular Volume 85.9 79-99 fL Mean Corpuscular Hemoglobin 26.8 L 27.0-33.0 pg Mean Corpuscular Hemoglobin Concent 31.2 L 32.0-36.0 g/dL Red Cell Distribution Width 15.4 11.0-15.5 % Platelet Count 265 130-400 K/uL Mean Platelet Volume 9.8 7.5-10.5 fL Immature Granulocyte % (Auto) 1.5 H 0-1 % Neutrophils (%) (Auto) 74.1 40.0-77.0 % Lymphocytes (%) (Auto) 10.9 L 21.0-51.0 % Monocytes (%) (Auto) 12.2 3.0-13.0 % Eosinophils (%) (Auto) 0.9 0.0-8.0 % Basophils (%) (Auto) 0.4 0.0-5.0 % Neutrophils # (Auto) 4.0 1.8-7.7 K/uL Lymphocytes # (Auto) 0.6 L 1.0-4.8 K/uL Monocytes # (Auto) 0.7 0.1-1.0 K/uL Eosinophils # (Auto) 0.05 0.00-0.70 K/uL Basophils # (Auto) 0.02 0.00-0.20 K/uL Absolute Immature Granulocyte (auto 0.08 0-1 K/uL Nucleated Red Blood Cells 0.0 0.0-0.19 % Sodium Level 138 136-145 mmol/L Potassium Level 4.0 3.5-5.1 mmol/L Chloride Level 108 101-111 mmol/L Carbon Dioxide Level 20 L 21-32 mmol/L Blood Urea Nitrogen 19 H 7-18 mg/dL Creatinine 1.8 H 0.5-1.3 mg/dL Glomerular Filtration Rate Calc 37 >90 mL/min Random Glucose 95 70-105 mg/dL Uric Acid 4.3 2.6-7.2 mg/dL Total Calcium 8.5 8.5-10.1 mg/dL Phosphorus Level 3.9 2.5-4.9 mg/dL Total Bilirubin 0.3 0.2-1.0 mg/dL Aspartate Amino Transf (AST/SGOT) 18 10-37 U/L Alanine Aminotransferase (ALT/SGPT) 12 12-78 U/L Alkaline Phosphatase 183 H 50-136 U/L Total Protein 6.4 6.0-8.3 g/dL Albumin 1.7 L 3.5-5.0 g/dL Urine Color YELLOW YELLOW Urine Appearance CLOUDY H CLEAR Urine pH 7.0 5.0-8.0 Urine Specific Pickett 1.020 1.001-1.031 Urine Protein 30 H NEGATIVE mg/dL Urine Glucose (UA) NEGATIVE NEGATIVE mg/dL Urine Ketones NEGATIVE NEGATIVE mg/dL Urine Occult Blood LARGE H NEGATIVE Urine Nitrate NEGATIVE NEGATIVE Urine Bilirubin NEGATIVE NEGATIVE mg/dL Urine Urobilinogen 0.2 0.2-1.0 mg/dL Urine Leukocyte Esterase MODERATE H NEGATIVE Nas/uL Urine RBC 26-50 H 0-1 /HPF Urine WBC 26-50 H 0-1 /HPF Urine Squamous Epithelial Cells None Seen 0-2 /HPF Urine Bacteria Moderate H None Seen /HPF White Cell Morphology Comment See comments Erythrocyte Sedimentation Rate 97 H 0-20 MM/HR Magnesium Level 2.00 1.80-2.40 mg/dL Direct Bilirubin 0.1 0.0-0.3 mg/dL Troponin I High Sensitivity 17 4-75 ng/L C-Reactive Protein, Quantitative 30.20 H 0.5-3.0 mg/L Lipase 26 16-77 U/L Procalcitonin 0.11 0.05-0.5 ng/mL Current Medications Medications (Trade) Dose Ordered Sig/Zaida Route PRN Reason Start Time Stop Time Status Last Admin Dose Admin Acetaminophen (TYLenol 500MG TAB) 500 mg Q6H PRN PO MILD PAIN (1-3) 01/27/24 14:30 02/26/24 14:29 01/28/24 06:53 500 MG Amlodipine Besylate (NorvASC 5MG TAB) 5 mg Q24H PO 01/27/24 14:30 02/26/24 14:29 01/28/24 14:51 5 MG Aspirin (Aspirin 81mg Ec Tab) 81 mg DAILY PO 01/28/24 09:00 02/27/24 08:59 01/28/24 09:31 81 MG Ceftriaxone Sodium (ROCEphine 1G INJ) 1 gm ONCE IVPB 01/27/24 13:30 01/27/24 21:30 DC 01/27/24 13:35 1 GM Finasteride (PROscar 5 MG TAB) 5 mg HS PO 01/27/24 21:00 02/26/24 20:59 01/27/24 20:06 5 MG Furosemide (LASix 20MG TAB) 20 mg DAILY PO 01/28/24 09:00 02/27/24 08:59 01/28/24 09:32 20 MG Home Med (Home Medication) (Enzalutamide (Xtandi) 160 MG) AM PO 01/28/24 09:00 02/27/24 08:59 Home Med (Home Medication) (Mirabegron (Myrbetriq) 1 TAB) DAILY PO 01/28/24 09:00 02/27/24 08:59 Hydralazine HCl (APRESOLine 20MG INJ) 10 mg Q6H PRN IV ADMINISTER FOR SBP > 170 01/27/24 15:30 02/26/24 15:29 01/27/24 17:28 10 MG Hydromorphone HCl (DiLAUDid 0.5MG INJ) 0.2 mg Q6H PRN IVP SEVERE PAIN (7-10) 01/27/24 20:30 02/01/24 20:29 01/28/24 14:46 0.2 MG Isosorbide Mononitrate (Ismo) 30 mg AM PO 01/28/24 09:00 02/27/24 08:59 01/28/24 09:32 30 MG Losartan Potassium (CozAAR 50 mg TAB) 50 mg DAILY PO 01/28/24 16:00 01/27/24 17:41 DC Losartan Potassium (CozAAR 50 mg TAB) 50 mg Q24H PO 01/27/24 18:00 02/27/24 15:59 01/27/24 18:29 50 MG Morphine Sulfate (morPHINE 2MG SYG) 2 mg Q6H PRN IVP SEVERE PAIN (7-10) 01/27/24 14:30 01/27/24 20:16 DC Ondansetron HCl (zoFRAN 4MG INJ) 4 mg Q6H PRN IVP NAUSEA/VOMITING 01/27/24 16:00 02/26/24 15:59 Pantoprazole Sodium (PROTonix 40MG TAB) 40 mg ACBKFST PO 01/28/24 09:00 02/27/24 08:59 01/28/24 09:32 40 MG Piperacillin Sod/ Tazobactam Sod (Zosyn 3.375gm+NS 50ml) 3.375 gm Q12H IVPB 01/27/24 14:30 02/06/24 14:29 01/28/24 14:46 3.375 GM Simvastatin (zoCOR) 80 mg HS PO 01/27/24 21:00 02/26/24 20:59 01/27/24 22:15 80 MG Sodium Chloride 1,000 ml @ 50 mls/hr Q20H IV 01/27/24 14:30 02/26/24 14:29 01/28/24 09:43 50 MLS/HR Tamsulosin HCl (FloMAX) 0.4 mg BID PO 01/27/24 21:00 02/26/24 20:59 01/28/24 09:31 0.4 MG Tamsulosin HCl (FloMAX) 0.4 mg ONCE PO 01/27/24 17:00 01/27/24 21:00 DC 01/27/24 18:29 0.4 MG DIAGNOSTICS / RADIOLOGY: PROCEDURE: ABD PEL WO - CT ABDOMEN/PELVIS W/O CONTRAST CT ABDOMEN WITHOUT CONTRAST. CT PELVIS WITHOUT CONTRAST. INDICATION: Prostate cancer, evaluate for hydronephrosis TECHNIQUE: Routine transaxial imaging using 5 mm slice thickness through the abdomen and pelvis without the administration of IV contrast. Thin slice reconstructions are also provided. Coronal and sagittal reformatted images acquired for interpretation. CT was performed with one or more of the following dose reduction techniques: Automated exposure control, adjustment of the mA and/or kV according to patient size, or use of iterative reconstruction technique. COMPARISON: 06/07/2023 FINDINGS: ON NONCONTRAST IMAGING: ABDOMEN: Heart size is normal. Scarring at both lung bases. Moderate bilateral hydroureteronephrosis. The liver is normal in size and smooth in contour without biliary duct dilation. The spleen is normal in size and attenuation. The gallbladder is absent. Several miniscule calcifications within the pancreatic parenchyma without pancreatic duct dilation. The adrenal glands appear normal. No significant abdominal, retrocrural or retroperitoneal adenopathy noted. No evidence for intra-abdominal free air or organized fluid collection. Mild calcific plaque is noted along the abdominal aortic and iliac vessel john without aneurysmal dilation. PELVIS: Small fat-containing nonobstructing left inguinal hernia. Chronic-appearing urinary bladder wall thickening, but associated mild surrounding inflammatory fat stranding. No evidence for free air or organized pelvic fluid collection. No significant pelvic adenopathy detected. Several diverticula along the distal colon. Terminal ileum appears unremarkable. The appendix appears normal. Prostate gland is enlarged. Visible osseous structures are intact. IMPRESSION: 1. Enlarged prostate gland, findings suggesting acute on chronic cystitis, and moderate bilateral hydroureteronephrosis. 2. Distal colonic diverticulosis. 3. Chronic pancreatitis. 4. Small fat-containing nonobstructing left inguinal hernia. PROCEDURE: HEAD WO - CT HEAD/BRAIN W/O CONTRAST CT HEAD WITHOUT CONTRAST INDICATION: Weakness TECHNIQUE: Noncontrast axial helical CT images from the vertex through the skull base using 5 mm slice thickness without contrast material. Coronal and sagittal reconstructions were also included. Dose reduction techniques was used using integrated, automated and adaptive dose reduction exposure control. CT was performed with one or more of the following dose reduction techniques: Automated exposure control, adjustment of the mA and/or kV according to patient size, or use of iterative reconstruction technique. COMPARISON: None FINDINGS: Scattered and coalescent subcortical and periventricular white matter low attenuating areas likely represent residual of chronic small vessel arteriopathy and/or remote vascular insult. Generalized mild cerebral cortical atrophy is present.. No evidence for abnormal extra-axial fluid collections or masses. The ventricles and sulci are normal in size and configuration. No evidence for intracranial parenchymal, epidural, or subdural hemorrhage, mass effect or midline shift. The dubon-white matter differentiation is well preserved. No secondary evidence to suggest acute ischemia. Mild calcific plaque is present along the john of the cavernous segments of both internal carotid arteries. The brainstem and cerebellum appear normal. The visualized orbits appear unremarkable. The visible paranasal sinuses and mastoid air cells are clear. The calvarium appears normal. IMPRESSION: Chronic white matter ischemic changes, mild brain atrophy, and arteriosclerotic disease as described, without acute component. PROCEDURE: CXR1VW - CHEST 1VW CHEST 1VW CLINICAL HISTORY: assess for any signficant infiltrates COMPARISON: None TECHNIQUE: Single view of the chest was obtained. FINDINGS: Lungs are clear. Cardiac size upper limits of normal to mildly enlarged. The bony structures are within normal limits. IMPRESSION: Borderline heart size. PROCEDURE: ECHO CMP - ECHO 2-D COMPLETE APPROVED REPORT EXAM: Two-dimensional and M-mode echocardiogram with Doppler and color Doppler. INDICATION ICD: assess LVEF, r/o valvulopathy 2D Dimensions RVDd 3.5 cm LVEF(%) 63.3 (>50%) LVED Vol(simp.) 117.0 mL IVSd 1.9 (0.7-1.1cm) FS(%) 34 % LVES Vol(simp.) 48.0 mL LVDd 4.4 (3.8-5.6cm) LA (2D) 4.1 (1.6-4.0cm) LVEF(%, simp.) 59 % PWd 1.5 (0.7-1.1cm) Ao Root(2D) 4.0 (2.0-3.7cm) LA ESV INDEX (4CH) 38.10 mL/m2 IVSs 1.8 cm LVOT diam 2.3 (1.8-2.4cm) LA ESV INDEX (2CH) 27.70 mL/m2 LVDs 2.9 (2.5-4.0cm) IVC diam 1.8 cm LA ESV INDEX (BP) 33.60 mL/m2 PWs 2.0 cm M-Mode Dimensions EPSS 0.7 cm LA (MM) 4.1 (1.6-4.0cm) Ao Root(MM) 3.6 (2.0-3.7cm) Aortic Valve AoV VTI 0.2 m Ao Mean GR 3.0 mmHg LVOT VTI 0.12 m DEMOND (VMAX) 3.1 cm2 DEMOND (VTI) 3.1 cm2 Mitral Valve MV E Vmax 42.4 cm/s DECEL Time 106 ms MV A Vmax 71.6 cm/s P 1/2 T 64 ms E/A ratio 0.6 MVA (PHT) 3.4 cm2 TDI E/E' Lateral 4.3 Lateral E' Peak V 9.90 cm/s Left Ventricle The left ventricle is normal size. Normal wall motion Moderate concentric left ventricular hypertrophy. LVEF is 55-60%. The LV diastolic function was unable to be assessed due to atrial arrhythmia. Right Ventricle The right ventricle is normal size. The right ventricular systolic function is normal. Atria The left atrium size is normal. The right atrium size is normal. Aortic Valve The aortic valve is mildly thickened but opens well. No aortic regurgitation is present. There is no aortic valvular stenosis. Mitral Valve The mitral valve is normal in structure. There is no mitral valve regurgitation noted. There is no mitral valve stenosis. Tricuspid Valve The tricuspid valve is normal in structure. There is no tricuspid valve regurgitation noted. Pulmonic Valve Not well seen There is no pulmonic valvular regurgitation. Great Vessels The aortic root is normal in size. The IVC is normal in size and collapses >50% with inspiration. Pericardium There is no pericardial effusion. Conclusion LVEF is 55-60%. The LV diastolic function was unable to be assessed due to atrial arrhythmia. Moderate concentric left ventricular hypertrophy. The left ventricle is normal size. Normal wall motion The aortic valve is mildly thickened but opens well. There is no pericardial effusion. 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, POA Acute on chronic renal failure, POA, resolving Hypertension, POA Hyperlipidemia, POA Tachycardia with RBBB, POA GERD, POA History of BPH, POA PLAN: Continue tele monitoring Follow up on blood culture and urine culture results Follow up on Bone scan NM results Continue IV Zosyn, gentle hydration with NS at 50 mL/hour Continue CBI as per Urology recommendation Will coordinate with Urology on Braun's catheter removal Follow up on iron panel results Avoid any NSAIDs and contrast, pain control with Tylenol, Dilaudid Continue GI prophylaxis with Protonix, DVT prophylaxis with SCDs due to episodes of hematuria while admitted, once hematuria resolves, patient will be placed on heparin Repeat CBC, CMP labs tomorrow AM TRACEE CAZARES MD Jan 28, 2024 15:24
[2024-01-28] MEDS ORDERED: LoSARTan 50 MG TABLET PO SCH (16:00)
[2024-01-28 16:19] LABS: % IRON SATURATION 14.2 % (30-44)
[2024-01-28] MEDS: morPHINE 2 MG SYG IVP PRN (18:27)
[2024-01-28] MEDS: HYDROcodone/APAP 5/325 1 TAB TABLET PO ONE (21:18)
[2024-01-29] VITALS (7 sets, daily range): BP systolic 121–154; BP diastolic 69–88; PULSE 74–101; RESP 16–19; TEMP 97.8–98.9; O2SAT 95–96
--- NOTE | 2024-01-29 01:31 | NUR ---
nursing pm note patient alert and oriented times 3. plan of care discussed with him and he verbalized understanding. spoke with patient's son on the phone about his condition. patient claiming he has penile pain due to the 3 way bajwa. Assessed the bajwa catheter and it was in place. i called delroy ramires and explained about patient's penile irritation to the bajwa catheter. He has no blood clots or retention. she ordered one time dose of narco 5/325 mg. the patient slept about 3 hours after the pill. He continued to ask for morphine throughout the night. Door open, bed alarm on, 2 side rails up. will continue to monitor patient.
[2024-01-29 06:06] LABS: BASOPHILS # (AUTO) 0.03 K/uL (0.00-0.20); BASOPHILS % (AUTO) 0.5 % (0.0-5.0); EOSINOPHILS % (AUTO) 3.1 % (0.0-8.0); HEMATOCRIT 26.6 % (42-54); LYMPHOCYTES # (AUTO) 0.4 K/uL (1.0-4.8); LYMPHOCYTES % (AUTO) 6.8 % (21.0-51.0); MEAN CORPUSCULAR HEMOGLOBIN 26.7 pg (27.0-33.0); MEAN CORPUSCULAR HGB CONC 31.2 g/dL (32.0-36.0); MEAN CORPUSCULAR VOLUME 85.5 fL (79-99); MONOCYTES # (AUTO) 0.7 K/uL (0.1-1.0); MONOCYTES % (AUTO) 10.2 % (3.0-13.0); NEUTROPHILS % (AUTO) 77.8 % (40.0-77.0); PLATELET COUNT (AUTO) 265 K/uL (130-400); RED BLOOD CELL COUNT(AUTO) 3.11 MIL/uL (4.50-6.20); RED CELL DISTRIBUTION WIDTH 15.6 % (11.0-15.5); WHITE BLOOD COUNT (AUTO) 6.4 K/uL (4.8-10.8)
[2024-01-29 06:36] LABS: ALBUMIN 1.7 g/dL (3.5-5.0); BILIRUBIN,TOTAL 0.3 mg/dL (0.2-1.0); CREATININE 1.6 mg/dL (0.5-1.3); POTASSIUM 3.2 mmol/L (3.5-5.1); TOTAL PROTEIN, SERUM 6.1 g/dL (6.0-8.3)
--- NOTE | 2024-01-29 06:54 | NUR ---
cbi total cbi output was 5,800 ml of yellow fluid with sediment used normal saline bag was 3,200 ml TRUE URINE WAS 2,400 ML
[2024-01-29] MEDS: FERROUS SULFATE 325 MG TABLET.DR PO SCH (08:52)
[2024-01-29] MEDS: FOLic ACID 1 MG TABLET PO SCH (08:53)
[2024-01-29] MEDS: CYANOCOBALAMIN (VITAMIN B-12) 100 MCG TABLET PO SCH (08:53)
[2024-01-29] MEDS: ondanSETRON 4MG INJ IVP PRN (08:59)
[2024-01-29] MEDS ORDERED: PoTASSium chloRIDE 20MEQ/100ML 100 ML IV PRN (10:30)
[2024-01-29] MEDS: PoTASSium chl 10% ELIXIR 20MEQ 20 MEQ/15 ML UDCUP PO PRN (11:36)
[2024-01-29] MEDS: hydroMORPHone 0.5 MG SYG (0.5MG/0.5ML) IVP PRN (11:36)
--- NOTE | 2024-01-29 14:09 | PN ---
Mr. Millard is an 83-year-old male with a past medical history significant for CHF, CAD, hyperlipidemia, and prostate cancer. Patient is status post radiation therapy. Patient only received 1 dose of Lupron 45 mg IM on 05/22/2019. Patient was found to have anemia and was sent for evaluation for that reason. Patient was found to have hypersegmented neutrophils on peripheral blood smear and was recommended folic acid and vitamin B12 daily. Patient was also found to have iron deficiency and was recommended oral iron. Patient is being followed by urology at [place]. Patient is from [place]. PET/CT done 08/02/2023 showed diffuse heterogeneous uptake within the prostate. There are 2 more focal areas of uptake involving peripheral zone bilaterally consistent with recurrent disease. There is at least 2 lymph nodes associated with focal increase in the left pelvis consistent with recurrent disease. There is few scattered prominent lymph nodes in retroperitoneum. There are also scattered prominent lymph nodes in the mediastinum. Patient has bilateral hydronephrosis. Patient has been recommended hormonal therapy consisting of enzalutamide and Lupron. Patient received a dose of the 6 month Eligard 45mg on 08/30/2023. He is currently taking Xtandi and reports tolerating the medication well. Patient was next hormone injection 02/15/2024. Patient finished his radiation therapy treatment 2023 Patient was admitted to the hospital because UTI Patient was found to have hematuria This patient was started on bladder irrigation with the urine is clear now. Patient complaining of pelvic pain which improved. But the patient is asking for morphine to be done every 2-3 hours as needed Physical Exam: General: No acute distress. Well-developed. HEENT: Normocephalic. Atraumatic. EOMI. PERRLA. Moist mucous membranes. No oral lesions. Oral cavity is clear. Neck: Supple. No cervical adenopathy. No supraclavicular adenopathy. Spine: Nontender to percussion. Lungs: No increased work of breathing. No use of accessory muscles. Normal lung sounds. Heart: Good peripheral perfusion. Abdomen: Soft. Extremities: No lower extremity edema. No cyanosis. No clubbing. Normal 2+ pulses bilaterally. Neurological: Intact. 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 Normal upper extremity strength. Impression: 1. History of prostate cancer status post radiation therapy treatment. He is a previous PSA was 3.4. PET CT scan was done 08/02/2023 which showed diffuse heterogeneous uptake within the prostate. There is 2 more focal areas of uptake involving the peripheral zone bilaterally consistent with recurrent disease. There is at least 2 lymph node associated with focal increase in the left pelvis consistent with recurrent disease. There is few scattered prominent lymph node in the retroperitoneum. There is scattered prominent lymph node in the mediastinum. There is bilateral hydronephrosis and hydro ureters. Patient received a dose of the 6 month Eligard 45mg on 08/30/2023. He is currently taking Xtandi and reports tolerating the medication well. Patient was next hormone injection 02/15/2024. Patient to finish his radiation therapy treatment 2023 Patient complaining of first time hematuria today. 2. Anemia. Which is corrected. Hemoglobin 14.7 g/deciliter. Patient was found to have iron deficiency anemia. 3. Hypertension 4. Hyperlipidemia 5. Coronary artery disease 6. Hematuria status post bladder irrigation 7. Pelvic pain 8. UTI Plan: 1. Patient received a dose of the 6 month Eligard 45mg on 08/30/2023. He is currently taking Xtandi and reports tolerating the medication well. Patient was next hormone injection 02/15/2024. Patient finish his radiation therapy treatment 2023 2. This patient have hematuria most likely due to the radiation therapy treatment. This patient is receiving irrigation of the bladder with the urine is clear. Will follow recommendation from urology. Irrigation system was stopped. There is plan to ask urology regarding maybe removing the catheter 3. This patient peripheral blood showed microcytic hypochromic red blood cell. This patient to be started on IV iron 4. we will ask for iron study to be done. If the iron study showed normal levels then this patient could benefit possibly from Procrit 5. Continue pain medication with morphine 2 mg every 3 hours as needed as needed. Vitals/Labs Vital Signs Date Time Temp Pulse Resp B/P (MAP) Pulse Ox O2 Delivery O2 Flow Rate FiO2 01/29/24 12:00 98.4 101 16 121/70 93 Room Air 01/28/24 19:00 0 21 Laboratory Tests 01/29/24 05:52 Medications Current Medications Sodium Chloride 1,000 ml @ 0 mls/hr ONCE ONCE IV Last administered on 01/27/24at 12:30; Start 01/27/24 at 11:30; Stop 01/27/24 at 11:31; Status DC Morphine Sulfate 2 mg ONCE ONCE IVP Last administered on 01/27/24at 12:30; Start 01/27/24 at 11:30; Stop 01/27/24 at 11:31; Status DC Ondansetron HCl 4 mg ONCE ONCE IVP Last administered on 01/27/24at 12:30; Start 01/27/24 at 11:30; Stop 01/27/24 at 11:31; Status DC Ceftriaxone Sodium 1 gm ONCE IVPB Last administered on 01/27/24at 13:35; Start 01/27/24 at 13:30; Stop 01/27/24 at 21:30; Status DC Morphine Sulfate 2 mg Q6H PRN IVP; Start 01/27/24 at 14:30; Stop 01/27/24 at 20:16; Status DC Sodium Chloride 1,000 ml @ 50 mls/hr Q20H IV Last administered on 01/29/24at 04:24; Start 01/27/24 at 14:30; Stop 02/26/24 at 14:29 Piperacillin Sod/ Tazobactam Sod 3.375 gm Q12H IVPB Last administered on 01/29/24at 00:30; Start 01/27/24 at 14:30; Stop 02/06/24 at 14:29 Amlodipine Besylate 5 mg Q24H PO Last administered on 01/28/24at 14:51; Start 01/27/24 at 14:30; Stop 02/26/24 at 14:29 Losartan Potassium 50 mg DAILY PO; Start 01/28/24 at 16:00; Stop 01/27/24 at 17:41; Status DC Acetaminophen 500 mg Q6H PRN PO Last administered on 01/28/24at 06:53; Start 01/27/24 at 14:30; Stop 02/26/24 at 14:29 Pantoprazole Sodium 40 mg ACBKFST PO Last administered on 01/29/24at 04:40; Start 01/28/24 at 09:00; Stop 02/27/24 at 08:59 Aspirin 81 mg DAILY PO Last administered on 01/29/24at 08:53; Start 01/28/24 at 09:00; Stop 02/27/24 at 08:59 Hydralazine HCl 10 mg Q6H PRN IV Last administered on 01/27/24at 17:28; Start 01/27/24 at 15:30; Stop 02/26/24 at 15:29 Ondansetron HCl 4 mg Q6H PRN IVP Last administered on 01/29/24at 08:59; Start 01/27/24 at 16:00; Stop 02/26/24 at 15:59 Finasteride 5 mg HS PO Last administered on 01/28/24at 19:18; Start 01/27/24 at 21:00; Stop 02/26/24 at 20:59 Tamsulosin HCl 0.4 mg ONCE PO Last administered on 01/27/24at 18:29; Start 01/27/24 at 17:00; Stop 01/27/24 at 21:00; Status DC Losartan Potassium 50 mg Q24H PO Last administered on 01/28/24at 18:27; Start 01/27/24 at 18:00; Stop 02/27/24 at 15:59 Furosemide 20 mg DAILY PO Last administered on 01/29/24at 08:53; Start 01/28/24 at 09:00; Stop 02/27/24 at 08:59 Isosorbide Mononitrate 30 mg AM PO Last administered on 01/29/24at 08:53; Start 01/28/24 at 09:00; Stop 02/27/24 at 08:59 Tamsulosin HCl 0.4 mg BID PO Last administered on 01/29/24at 08:52; Start 01/27/24 at 21:00; Stop 02/26/24 at 20:59 Home Med (Enzalutamide (Xtandi) 160 MG) AM PO; Start 01/28/24 at 09:00; Stop 02/27/24 at 08:59 Home Med (Mirabegron (Myrbetriq) 1 TAB) DAILY PO; Start 01/28/24 at 09:00; Stop 02/27/24 at 08:59 Simvastatin 80 mg HS PO Last administered on 01/28/24at 19:18; Start 01/27/24 at 21:00; Stop 01/29/24 at 10:17; Status DC Hydromorphone HCl 0.2 mg Q6H PRN IVP Last administered on 01/28/24at 14:46; Start 01/27/24 at 20:30; Stop 01/28/24 at 16:16; Status DC Morphine Sulfate 2 mg ONCE ONCE IVP Last administered on 01/28/24at 11:46; Start 01/28/24 at 11:30; Stop 01/28/24 at 11:31; Status DC Morphine Sulfate 2 mg Q4H PRN IVP Last administered on 01/29/24at 08:54; Start 01/28/24 at 16:30; Stop 02/04/24 at 16:29 Acetaminophen/ Hydrocodone Bitart 1 tab ONCE ONCE PO Last administered on 01/28/24at 21:18; Start 01/28/24 at 21:30; Stop 01/28/24 at 21:31; Status DC Folic Acid 1 mg DAILY PO Last administered on 01/29/24at 08:53; Start 01/29/24 at 09:00; Stop 02/28/24 at 08:59 Vitamin B Complex 100 mcg DAILY PO Last administered on 01/29/24at 08:53; Start 01/29/24 at 09:00; Stop 02/28/24 at 08:59 Ferrous Sulfate 325 mg DAILY PO Last administered on 01/29/24at 08:52; Start 01/29/24 at 09:00; Stop 02/28/24 at 08:59 Potassium Chloride 100 ml @ 100 mls/hr AD PRN IV; Start 01/29/24 at 10:30; Stop 02/28/24 at 10:29 Potassium Chloride 20 meq AD PRN PO Last administered on 01/29/24at 11:36; Start 01/29/24 at 10:30; Stop 02/28/24 at 10:29 Potassium Chloride 20 meq AD PRN PO; Start 01/29/24 at 10:30; Stop 02/28/24 at 10:29 Magnesium Sulfate 50 ml @ 0 mls/hr PROTOCOL PRN IV; Start 01/29/24 at 10:30; Stop 02/28/24 at 10:29 Simvastatin 40 mg HS PO; Start 01/29/24 at 21:00; Stop 02/26/24 at 20:59 Hydromorphone HCl 0.5 mg Q2HPRN PRN IVP Last administered on 01/29/24at 11:36; Start 01/29/24 at 11:30; Stop 02/03/24 at 11:29 Heparin Sodium (Porcine) 5,000 unit Q8H SQ; Start 01/29/24 at 13:00; Stop 02/28/24 at 12:59 RAMEZ MAGAÑA MD Jan 29, 2024 14:08
--- NOTE | 2024-01-29 14:45 | PN ---
[facility] PROGRESS NOTE Date of Service: Jan 29, 2024 Time of Service: 14:24 SUBJECTIVE: Patient is seen at the bedside. He is awake, alert and oriented. Vitals temperature 98.1, pulse 84, respiratory rate 17, blood pressure 155/77 SpO2 99% on room air. He complains of diffuse, constant, severe pelvic pain, loss of appetite, nausea. No acute events last night. He denies headache, dizziness, vomiting, chest pain, palpitations, diarrhea. He had a bowel movement in the morning. Braun's catheter is in place with 1.5 L pink tinged UO. LABS: CBC hemoglobin 9.1, CMP BUN 19, creatinine decreased from 2.1 To 1.8, alkaline phosphatase 208. 2D echo resulted in LVEF is 55-60%, moderate concentric left ventricular hypertrophy. CT abdomen/pelvis resulted in enlarged prostate gland, findings suggesting acute on chronic cystitis, and moderate bilateral hydroureteronephrosis, Distal colonic diverticulosis, Chronic pancreatitis and small fat-containing nonobstructing left inguinal hernia. CT head and chest x-ray resulted in no acute findings. Pending bone scan results. 01/28 Patient is seen at the bedside. He is awake, alert and oriented. He is hemodynamically stable. He still complains of constant, severe pelvic pain at the catheter site and diarrhea. No acute events last night. He denies headache, dizziness, chest pain, vomiting, palpitations, constipation. Foleys catheter is in place with 2.4 L yellowish coloured UO. Labs hemoglobin 8.3, CMP shows low potassium 3.2, Creatinine trended down from 1.8 to 1.6, low iron 24, TIBC 169,% saturation 14.2, alkaline phosphatase 178, PSA 0.014. 2D echo resulted in LVEF is 55-60%. Bone scan NM resulted in degenerative changes with increased activities in the shoulders, elbows, knees and ankles bilaterally. There is area with increase activity in the right distal humerus of questionable etiology. REVIEW OF SYSTEMS CONSTITUTIONAL: Denies fevers, chills, or night sweats. NEUROLOGICAL: Recent history of fall ENT: No hearing loss, otalgia, otorrhea, rhinitis, rhinorrhea, hoarseness, or sore throat. CARDIOVASCULAR: Denies any exertional angina, dyspnea on exertion, orthopnea, paroxysmal nocturnal dyspnea, palpitations, life-threatening arrhythmias, claudication. PULMONARY: Denies any shortness of breath, cough, phlegm/sputum, hemoptysis, pleuritic chest pain. SLEEP: Denies morning headaches, daytime somnolence or napping. Denies difficulty falling asleep, staying asleep, waking from sleep. Denies knowledge of snoring. GASTROINTESTINAL: Reports having nausea, with poor oral intake and associated weight loss, diffuse pelvic pain GENITOURINARY: Suprapubic pain,yellowish tinged urine, dysuria ENDOCRINOLOGIC: Denies polyuria, polydipsia, polyphagia or heat/cold intolerances. HEMATOLOGIC: Denies thrombophilia/previous clots, or coagulopathy/bleeding disorders. ONCOLOGIC: Denies personal history of malignancy. DERMATOLOGIC: Denies rashes or pruritus. PSYCHIATRIC: Denies any suicidal or homicidal ideation. Denies hallucinations. PHYSICAL EXAM GENERAL APPEARANCE: The patient is awake, alert, and oriented, in no acute cardiopulmonary distress. NEUROLOGICAL: Cranial nerves II-XII grossly intact. Motor is 5/5 in bilateral upper and lower extremities proximal to distal. No sensory deficits. HEENT: Face is symmetric. Pupils are equal and reactive. Extraocular movements are intact. NECK: Supple. No JVD. No thyromegaly. No submental, submandibular, pre-/p ostauricular, occipital or supraclavicular lymphadenopathy. CHEST: Normal chest expansion. No Telemetry. LUNGS: Absence of any rales, rhonchi or any wheezing. CARDIOVASCULAR: Regular. S1 and S2 normal. No appreciable rubs, murmurs or gallops. ABDOMEN: Soft, tenderness in pelvic region and nondistended. There is no rebound, voluntary guarding, or rigidity. : Deferred. EXTREMITIES: Non-edematous and not cyanotic. No clubbing. Good capillary refill. SKIN: No skin breakdown. Vital Signs (last 8hr) Date Time Temp Pulse Resp B/P (MAP) Pulse Ox O2 Delivery O2 Flow Rate FiO2 01/29/24 12:00 98.4 101 16 121/70 93 Room Air 01/29/24 08:00 99.0 75 16 147/74 95 Room Air LABS: Laboratory: Test 01/29/24 05:52 01/28/24 15:39 01/28/24 03:54 Range/Units White Blood Count 6.4 4.8-10.8 K/uL Red Blood Count 3.11 L 4.50-6.20 MIL/uL Hemoglobin 8.3 L 14.0-18.0 g/dL Hematocrit 26.6 L 42-54 % Mean Corpuscular Volume 85.5 79-99 fL Mean Corpuscular Hemoglobin 26.7 L 27.0-33.0 pg Mean Corpuscular Hemoglobin Concent 31.2 L 32.0-36.0 g/dL Red Cell Distribution Width 15.6 H 11.0-15.5 % Platelet Count 265 130-400 K/uL Mean Platelet Volume 9.3 7.5-10.5 fL Immature Granulocyte % (Auto) 1.6 H 0-1 % Neutrophils (%) (Auto) 77.8 H 40.0-77.0 % Lymphocytes (%) (Auto) 6.8 L 21.0-51.0 % Monocytes (%) (Auto) 10.2 3.0-13.0 % Eosinophils (%) (Auto) 3.1 0.0-8.0 % Basophils (%) (Auto) 0.5 0.0-5.0 % Neutrophils # (Auto) 5.0 1.8-7.7 K/uL Lymphocytes # (Auto) 0.4 L 1.0-4.8 K/uL Monocytes # (Auto) 0.7 0.1-1.0 K/uL Eosinophils # (Auto) 0.20 0.00-0.70 K/uL Basophils # (Auto) 0.03 0.00-0.20 K/uL Absolute Immature Granulocyte (auto 0.10 0-1 K/uL Nucleated Red Blood Cells 0.0 0.0-0.19 % Sodium Level 139 136-145 mmol/L Potassium Level 3.2 L 3.5-5.1 mmol/L Chloride Level 107 101-111 mmol/L Carbon Dioxide Level 22 21-32 mmol/L Blood Urea Nitrogen 16 7-18 mg/dL Creatinine 1.6 H 0.5-1.3 mg/dL Glomerular Filtration Rate Calc 42 >90 mL/min Random Glucose 123 H 70-105 mg/dL Total Calcium 8.4 L 8.5-10.1 mg/dL Total Bilirubin 0.3 0.2-1.0 mg/dL Aspartate Amino Transf (AST/SGOT) 21 10-37 U/L Alanine Aminotransferase (ALT/SGPT) 15 12-78 U/L Alkaline Phosphatase 178 H 50-136 U/L Total Protein 6.1 6.0-8.3 g/dL Albumin 1.7 L 3.5-5.0 g/dL Iron Level 24 L 65-175 mcg/dL Total Iron Binding Capacity 169 L 250-450 mcg/dL Percent Iron Saturation 14.2 L 30-44 % Vitamin D 25-Hydroxy 30.6 30.0-100.0 ng/mL Uric Acid 4.3 2.6-7.2 mg/dL Phosphorus Level 3.9 2.5-4.9 mg/dL Prostate Specific Ag, Ultra-Sensitv 0.014 0.000-4.000 ng/mL Vitamin B12 Level 1043 H 193-986 pg/mL Current Medications Medications (Trade) Dose Ordered Sig/Zaida Route PRN Reason Start Time Stop Time Status Last Admin Dose Admin Acetaminophen (TYLenol 500MG TAB) 500 mg Q6H PRN PO MILD PAIN (1-3) 01/27/24 14:30 02/26/24 14:29 01/28/24 06:53 500 MG Amlodipine Besylate (NorvASC 5MG TAB) 5 mg Q24H PO 01/27/24 14:30 02/26/24 14:29 01/28/24 14:51 5 MG Aspirin (Aspirin 81mg Ec Tab) 81 mg DAILY PO 01/28/24 09:00 02/27/24 08:59 01/29/24 08:53 81 MG Ceftriaxone Sodium (ROCEphine 1G INJ) 1 gm ONCE IVPB 01/27/24 13:30 01/27/24 21:30 DC 01/27/24 13:35 1 GM Ferrous Sulfate (Ferrous Sulfate) 325 mg DAILY PO 01/29/24 09:00 02/28/24 08:59 01/29/24 08:52 325 MG Finasteride (PROscar 5 MG TAB) 5 mg HS PO 01/27/24 21:00 02/26/24 20:59 01/28/24 19:18 5 MG Folic Acid (FOLic ACID 1 MG TABLET) 1 mg DAILY PO 01/29/24 09:00 02/28/24 08:59 01/29/24 08:53 1 MG Furosemide (LASix 20MG TAB) 20 mg DAILY PO 01/28/24 09:00 02/27/24 08:59 01/29/24 08:53 20 MG Heparin Sodium (Porcine) (HEParin 5,000 UNIT VIAL) 5,000 unit Q8H SQ 01/29/24 13:00 02/28/24 12:59 Home Med (Home Medication) (Enzalutamide (Xtandi) 160 MG) AM PO 01/28/24 09:00 02/27/24 08:59 Home Med (Home Medication) (Mirabegron (Myrbetriq) 1 TAB) DAILY PO 01/28/24 09:00 02/27/24 08:59 Hydralazine HCl (APRESOLine 20MG INJ) 10 mg Q6H PRN IV ADMINISTER FOR SBP > 170 01/27/24 15:30 02/26/24 15:29 01/27/24 17:28 10 MG Hydromorphone HCl (DiLAUDid 0.5MG INJ) 0.2 mg Q6H PRN IVP SEVERE PAIN (7-10) 01/27/24 20:30 01/28/24 16:16 DC 01/28/24 14:46 0.2 MG Hydromorphone HCl (DiLAUDid 0.5MG INJ) 0.5 mg Q2HPRN PRN IVP SEVERE PAIN (7-10) 01/29/24 11:30 02/03/24 11:29 01/29/24 11:36 0.5 MG Isosorbide Mononitrate (Ismo) 30 mg AM PO 01/28/24 09:00 02/27/24 08:59 01/29/24 08:53 30 MG Losartan Potassium (CozAAR 50 mg TAB) 50 mg DAILY PO 01/28/24 16:00 01/27/24 17:41 DC Losartan Potassium (CozAAR 50 mg TAB) 50 mg Q24H PO 01/27/24 18:00 02/27/24 15:59 01/28/24 18:27 50 MG Magnesium Sulfate 50 ml @ 0 mls/hr PROTOCOL PRN IV PROTOCOL 01/29/24 10:30 02/28/24 10:29 Morphine Sulfate (morPHINE 2MG SYG) 2 mg Q4H PRN IVP SEVERE PAIN (7-10) 01/28/24 16:30 02/04/24 16:29 01/29/24 08:54 2 MG Morphine Sulfate (morPHINE 2MG SYG) 2 mg Q6H PRN IVP SEVERE PAIN (7-10) 01/27/24 14:30 01/27/24 20:16 DC Ondansetron HCl (zoFRAN 4MG INJ) 4 mg Q6H PRN IVP NAUSEA/VOMITING 01/27/24 16:00 02/26/24 15:59 01/29/24 08:59 4 MG Pantoprazole Sodium (PROTonix 40MG TAB) 40 mg ACBKFST PO 01/28/24 09:00 02/27/24 08:59 01/29/24 04:40 40 MG Piperacillin Sod/ Tazobactam Sod (Zosyn 3.375gm+NS 50ml) 3.375 gm Q12H IVPB 01/27/24 14:30 02/06/24 14:29 01/29/24 00:30 3.375 GM Potassium Chloride 100 ml @ 100 mls/hr AD PRN IV POTASSIUM PROTOCOL 01/29/24 10:30 02/28/24 10:29 Potassium Chloride (K-Dur/Klor-Con 20meq) 20 meq AD PRN PO POTASSIUM PROTOCOL 01/29/24 10:30 02/28/24 10:29 Potassium Chloride (KCl 10% Elixir 20meq/15ml) 20 meq AD PRN PO POTASSIUM PROTOCOL 01/29/24 10:30 02/28/24 10:29 01/29/24 11:36 20 MEQ Simvastatin (zoCOR) 40 mg HS PO 01/29/24 21:00 02/26/24 20:59 Simvastatin (zoCOR) 80 mg HS PO 01/27/24 21:00 01/29/24 10:17 DC 01/28/24 19:18 80 MG Sodium Chloride 1,000 ml @ 50 mls/hr Q20H IV 01/27/24 14:30 02/26/24 14:29 01/29/24 04:24 50 MLS/HR Tamsulosin HCl (FloMAX) 0.4 mg BID PO 01/27/24 21:00 02/26/24 20:59 01/29/24 08:52 0.4 MG Tamsulosin HCl (FloMAX) 0.4 mg ONCE PO 01/27/24 17:00 01/27/24 21:00 DC 01/27/24 18:29 0.4 MG Vitamin B Complex (Vitamin B-12) 100 mcg DAILY PO 01/29/24 09:00 02/28/24 08:59 01/29/24 08:53 100 MCG DIAGNOSTICS / RADIOLOGY: PROCEDURE: ECHO [facility] - ECHO 2-D COMPLETE APPROVED REPORT EXAM: Two-dimensional and M-mode echocardiogram with Doppler and color Doppler. INDICATION ICD: assess LVEF, r/o valvulopathy 2D Dimensions RVDd 3.5 cm LVEF(%) 63.3 (>50%) LVED Vol(simp.) 117.0 mL IVSd 1.9 (0.7-1.1cm) FS(%) 34 % LVES Vol(simp.) 48.0 mL LVDd 4.4 (3.8-5.6cm) LA (2D) 4.1 (1.6-4.0cm) LVEF(%, simp.) 59 % PWd 1.5 (0.7-1.1cm) Ao Root(2D) 4.0 (2.0-3.7cm) LA ESV INDEX (4CH) 38.10 mL/m2 IVSs 1.8 cm LVOT diam 2.3 (1.8-2.4cm) LA ESV INDEX (2CH) 27.70 mL/m2 LVDs 2.9 (2.5-4.0cm) IVC diam 1.8 cm LA ESV INDEX (BP) 33.60 mL/m2 PWs 2.0 cm M-Mode Dimensions EPSS 0.7 cm LA (MM) 4.1 (1.6-4.0cm) Ao Root(MM) 3.6 (2.0-3.7cm) Aortic Valve AoV VTI 0.2 m Ao Mean GR 3.0 mmHg LVOT VTI 0.12 m DEMOND (VMAX) 3.1 cm2 DEMOND (VTI) 3.1 cm2 Mitral Valve MV E Vmax 42.4 cm/s DECEL Time 106 ms MV A Vmax 71.6 cm/s P 1/2 T 64 ms E/A ratio 0.6 MVA (PHT) 3.4 cm2 TDI E/E' Lateral 4.3 Lateral E' Peak V 9.90 cm/s Left Ventricle The left ventricle is normal size. Normal wall motion Moderate concentric left ventricular hypertrophy. LVEF is 55-60%. The LV diastolic function was unable to be assessed due to atrial arrhythmia. Right Ventricle The right ventricle is normal size. The right ventricular systolic function is normal. Atria The left atrium size is normal. The right atrium size is normal. Aortic Valve The aortic valve is mildly thickened but opens well. No aortic regurgitation is present. There is no aortic valvular stenosis. Mitral Valve The mitral valve is normal in structure. There is no mitral valve regurgitation noted. There is no mitral valve stenosis. Tricuspid Valve The tricuspid valve is normal in structure. There is no tricuspid valve regurgitation noted. Pulmonic Valve Not well seen There is no pulmonic valvular regurgitation. Great Vessels The aortic root is normal in size. The IVC is normal in size and collapses >50% with inspiration. Pericardium There is no pericardial effusion. Conclusion LVEF is 55-60%. The LV diastolic function was unable to be assessed due to atrial arrhythmia. Moderate concentric left ventricular hypertrophy. The left ventricle is normal size. Normal wall motion The aortic valve is mildly thickened but opens well. There is no pericardial effusion. Normal pulmonary pressure Study quality was adequate PROCEDURE: BONE WBD - NM BONE SCAN WHOLE BODY NM BONE SCAN WHOLE BODY REASON: hx of prostate cancer . COMPARISON: None TECHNIQUE: Nuclear renal scan was performed. FINDINGS: There appears be bilateral hydronephrosis with contrast retention mostly in the right kidney. Small amount of activity is seen in the bladder. There are degenerative changes with increased activities in the shoulders, elbows, knees and ankles bilaterally. There is area with increase activity in the right distal humerus of questionable etiology. Clinical correlation is recommended to rule out bony lesion. No other scintigraphic evidence of bone metastases is seen. IMPRESSION: Findings as described above. 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 Continue GI prophylaxis with Protonix Start DVT prophylaxis 5000 t.i.d. SQ Repeat CBC, CMP labs tomorrow AM TRACEE CAZARES MD Jan 29, 2024 14:45
[2024-01-29] MEDS: HEParin 5,000 UNIT VIAL SQ SCH (15:05)
--- NOTE | 2024-01-29 17:21 | NUR ---
Pt refuses due to pain despite having been premedicated. Pt still with bladder irrigations. PT following
--- NOTE | 2024-01-29 18:17 | HMCIMG ---
Exam Type: CT ABD/PEL WO CON RENAL/APPY Clinical Information: HYDRONEPHROSIS Comparison: None Contrast: 100 cc's Isovue 370 IV, no complications or adverse reactions CT Dose Index (CTDI): 31.60 mGy Dose Length Product (DLP): 1740.80 total mGy-cm Findings: Urinary bladder has irregular thickened wall. The prostate is enlarged. Bilateral chronic hydroureteronephrosis is seen with significant loss of cortical thickness of both kidneys consistent with atrophy. These findings are suggestive of chronic bladder outlet obstruction. Emphysematous changes of the lower lobes are seen bilaterally. The stomach is unremarkable except for a hiatal hernia. It shows no wall thickening. No gross ulceration is seen. It is not overly distended. There are no surrounding inflammatory changes. No wall lesions are identified to suggest cancer. The spleen is unremarkable. It is not enlarged. The pancreas shows normal anatomy. It is not fatty replaced. It shows no lesions. The pancreatic duct is not dilated. The gallbladder is surgically absent. The adrenal glands are unremarkable. There is no enlargement. No lesions are noted. The liver is unremarkable. It shows no focal masses. The appendix is unremarkable. It shows no evidence of inflammation. No appendicolith is seen. The small bowel is unremarkable. There is no evidence of dilatation to suggest obstruction. No evidence of adynamic ileus is seen. There is no small bowel wall thickening to suggest enteritis. The colon is unremarkable. The other pelvic structures are unremarkable. The bony and vascular structures are unremarkable for the patient's age. IMPRESSION: Chronic bladder outlet obstruction with bilateral chronic hydroureteronephrosis and atrophy of the kidneys. Status post cholecystectomy. Other findings as described. This study was performed using dose reduction techniques to include automated exposure control and/or adjustment of the mA and/or kV according to patient size.
--- NOTE | 2024-01-29 20:27 | PN ---
SUBJECTIVE: This patient has renal failure, anemia, multiple other comorbidities. The patient has significant anemia. The patient has complicated UTI. He has a history of hematuria and hypokalemia, hypocalcemia fall before, moderate bilateral hydronephrosis, severe hypertension, prostate cancer, previous radiation therapy and multiple other comorbidities. No other associated finding. No other aggravating or relieving factors. The patient is on hydration with antibiotics. The patient has significant anemia. Urology has been following and has had a Braun catheter placement, which he wants to be removed. REVIEW OF SYSTEMS: CONSTITUTIONAL: Weakness with no fever, chills or rigors. HEENT: With no headache, oral ulcers, sore throat or difficulty swallowing. RESPIRATORY: With no cough, expectoration, hemoptysis, or pleuritic pain. CARDIOVASCULAR: No orthopnea, PND. GASTROINTESTINAL: Negative for nausea, vomiting or diarrhea. GENITOURINARY: Negative for dysuria or hematuria. DERMATOLOGICAL: No rashes, pruritus. NEUROLOGICAL: No seizure or syncope. PHYSICAL EXAMINATION: GENERAL: Pale, no other distress or deformities. VITAL SIGNS: Blood pressure is 147/74, pulse is 75, respiratory rate is 16. HEENT: Head is atraumatic, normocephalic. Pupils are round and reactive. Sclerae are anicteric. Conjunctivae not pale. Oral mucosa is not dry. NECK: Without masses, bruits. Thyroid is palpable. Neck has no bruits. CHEST: Shows equal thoracic percussion note being resonant in all areas. CARDIAC: Regular rhythm, no rub, no S3, S4. No parasternal heave. Apical beat is not localized. ABDOMEN: With no guarding or tenderness. Bowel sounds are normoactive. No free fluid. EXTREMITIES: No edema and no cyanosis or clubbing. BACK: No tenderness or back deformities. LABORATORY DATA: We have reviewed available labs in detail and the labs have shown low hemoglobin of 8.3, white cell count is 6.4. Chemistries have been reviewed. Creatinine is 1.6, BUN of 60. Low potassium of 3.2. Low albumin of 1.7. IMAGING STUDIES: Personally reviewed. Abdominal pelvic CT has been done, which has shown chronic bladder outlet obstruction and bilateral chronic hydronephrosis with kidney atrophic. Old records have been reviewed. PROBLEMS: Acute renal failure. The patient has underlying concentric left ventricular hypertrophy underlying urinary retention, prostate cancer, bladder outlet obstruction, anemia and multiple other comorbidities as above. The patient's condition is critical, guarded. PLAN: * The patient wants Braun should be removed. The patient's urologist will be informed. The patient had a bladder outlet obstruction. * Please avoid contrast and nonsteroidal drug. * IV Dilaudid can be used for pain 0.5 every 6 hours. * We reviewed all the labs, x-rays, CT scan personally and interpreted them. * The patient will have a discussion with other team physicians. We will continue monitoring of renal function and electrolytes. Please avoid contrast, nonsteroidal drug and nephrotoxics. Overall condition remained critical and guarded. Thank you for this patient. TID: [id number] RECEIPT: [id number]
[2024-01-29] MEDS: simVASTatin 20 MG TABLET PO SCH (21:29)
[2024-01-30] MEDS: LOPERAMIDE 1 MG/7.5 ML UDCUP PO PRN (02:54)
--- NOTE | 2024-01-30 03:08 | NUR ---
PATIENT HAD ANOTHER STOOL (#3). COLLECTED TO SENT TO LAB FOR CDIFF. BUT SINCE IT IS FLUFFY IN CONSISTENCY AND NOT ALL LIQUID IT DOES NOT QUALIFY. CONFIRMED WITH SENIOR ASIC DESIGN ENGINEER SAYDA Sheriff
[2024-01-30 03:50] LABS: BASOPHILS # (AUTO) 0.02 K/uL (0.00-0.20); BASOPHILS % (AUTO) 0.3 % (0.0-5.0); EOSINOPHILS # (AUTO) 0.25 K/uL (0.00-0.70); EOSINOPHILS % (AUTO) 3.9 % (0.0-8.0); HEMATOCRIT 26.7 % (42-54); IMMATURE GRANULOCYTE ABSOLUTE 0.12 K/uL (0-1); LYMPHOCYTES # (AUTO) 0.7 K/uL (1.0-4.8); LYMPHOCYTES % (AUTO) 10.2 % (21.0-51.0); MEAN CORPUSCULAR HEMOGLOBIN 26.7 pg (27.0-33.0); MEAN CORPUSCULAR HGB CONC 31.5 g/dL (32.0-36.0); MEAN CORPUSCULAR VOLUME 84.8 fL (79-99); MONOCYTES # (AUTO) 0.7 K/uL (0.1-1.0); MONOCYTES % (AUTO) 11.2 % (3.0-13.0); NEUTROPHILS # (AUTO) 4.7 K/uL (1.8-7.7); NEUTROPHILS % (AUTO) 72.5 % (40.0-77.0); PLATELET COUNT (AUTO) 265 K/uL (130-400); RED BLOOD CELL COUNT(AUTO) 3.15 MIL/uL (4.50-6.20); RED CELL DISTRIBUTION WIDTH 15.6 % (11.0-15.5); WHITE BLOOD COUNT (AUTO) 6.5 K/uL (4.8-10.8)
[2024-01-30 04:09] LABS: ALBUMIN 1.7 g/dL (3.5-5.0); BILIRUBIN,TOTAL 0.3 mg/dL (0.2-1.0); CREATININE 1.6 mg/dL (0.5-1.3); MAGNESIUM 1.7 mg/dL (1.80-2.40); PHOSPHORUS 2.5 mg/dL (2.5-4.9); POTASSIUM 3.6 mmol/L (3.5-5.1); TOTAL PROTEIN, SERUM 6.4 g/dL (6.0-8.3)
[2024-01-30 04:31] VITALS: BP 147/66; PULSE 71; RESP 18; TEMP 98.6
[2024-01-30] MEDS: PoTASSium chloRIDE 20MEQ ER 20 MEQ ERTAB PO PRN (06:45)
[2024-01-30] MEDS: MAGNESIUM 2GM PREMIX 50ML 50 ML IV PRN (06:47)
[2024-01-30 08:00] VITALS: BP 140/57; PULSE 86; RESP 15; TEMP 98.6; O2SAT 95
--- NOTE | 2024-01-30 09:50 | NUR ---
Spoke to patient and son in room. Patient continues to refuse PT stating he is walkin gin his room but feels too weak to walk out in the halls. He still reports pain limits his activity tolerance. Explained to patient the reasoning behind ordering and working with PT however patient states he will not get up with PT. Spoke to EDITA Helms who states patient has been getting up to the bathroom ad sylvia. Informed patient to still roxane nursing for OOB activity as he has not been assessed by PT for safety. PT team to follow.
--- NOTE | 2024-01-30 10:54 | NUR ---
ATTEMPT TO CONTACT DR CAMARENA ATTEMPTED TO CONTACT DR CAMARENA'S OFFICE TO RELAY CT RESULTS DIRECTED 01/29/24, WAS ON HOLD WITH [facility] FOR 20 MINUTES. WILL ATTEMPT TO CALL BACK.
--- NOTE | 2024-01-30 11:13 | PN ---
[facility] PROGRESS NOTE Date of Service: Jan 30, 2024 Time of Service: 11:02 SUBJECTIVE: Patient is seen at the bedside. He is awake, alert and oriented. Vitals temperature 98.1, pulse 84, respiratory rate 17, blood pressure 155/77 SpO2 99% on room air. He complains of diffuse, constant, severe pelvic pain, loss of appetite, nausea. No acute events last night. He denies headache, dizziness, vomiting, chest pain, palpitations, diarrhea. He had a bowel movement in the morning. Braun's catheter is in place with 1.5 L pink tinged UO. LABS: CBC hemoglobin 9.1, CMP BUN 19, creatinine decreased from 2.1 To 1.8, alkaline phosphatase 208. 2D echo resulted in LVEF is 55-60%, moderate concentric left ventricular hypertrophy. CT abdomen/pelvis resulted in enlarged prostate gland, findings suggesting acute on chronic cystitis, and moderate bilateral hydroureteronephrosis, Distal colonic diverticulosis, Chronic pancreatitis and small fat-containing nonobstructing left inguinal hernia. CT head and chest x-ray resulted in no acute findings. Pending bone scan results. 01/28 Patient is seen at the bedside. He is awake, alert and oriented. He is hemodynamically stable. He still complains of constant, severe pelvic pain at the catheter site and diarrhea. No acute events last night. He denies headache, dizziness, chest pain, vomiting, palpitations, constipation. Foleys catheter is in place with 2.4 L yellowish coloured UO. Labs hemoglobin 8.3, CMP shows low potassium 3.2, Creatinine trended down from 1.8 to 1.6, low iron 24, TIBC 169,% saturation 14.2, alkaline phosphatase 178, PSA 0.014. 2D echo resulted in LVEF is 55-60%. Bone scan NM resulted in degenerative changes with increased activities in the shoulders, elbows, knees and ankles bilaterally. There is area with increase activity in the right distal humerus of questionable etiology. 01/29 patient is seen at the bedside. He is awake alert and oriented. Vitals temperature 98.6, pulse rate 86, blood pressure 140/57, respiratory rate 15 , SpO2 97% on room air. Braun's catheter has been removed yesterday. Patient complains of moderate diffuse pelvic pain, nausea and diarrhea. Urinary output is 600 mL. Labs hemoglobin 8.4, sodium 135, BUN 14 , creatinine 1.6, magnesium 1.7, alkaline phosphatase 182. Repeat CT abdomen/pelvis resulted in Chronic bladder outlet obstruction with bilateral chronic hydroureteronephrosis and atrophy of the kidneys. Patient is cleared from Oncology standpoint for discharge. REVIEW OF SYSTEMS CONSTITUTIONAL: Denies fevers, chills, or night sweats. NEUROLOGICAL: Recent history of fall ENT: No hearing loss, otalgia, otorrhea, rhinitis, rhinorrhea, hoarseness, or sore throat. CARDIOVASCULAR: Denies any exertional angina, dyspnea on exertion, orthopnea, paroxysmal nocturnal dyspnea, palpitations, life-threatening arrhythmias, claudication. PULMONARY: Denies any shortness of breath, cough, phlegm/sputum, hemoptysis, pleuritic chest pain. SLEEP: Denies morning headaches, daytime somnolence or napping. Denies difficulty falling asleep, staying asleep, waking from sleep. Denies knowledge of snoring. GASTROINTESTINAL: Reports having nausea, with poor oral intake and associated weight loss, diffuse pelvic pain GENITOURINARY: Moderate Suprapubic pain,yellowish tinged urine ENDOCRINOLOGIC: Denies polyuria, polydipsia, polyphagia or heat/cold intolerances. HEMATOLOGIC: Denies thrombophilia/previous clots, or coagulopathy/bleeding disorders. ONCOLOGIC: Denies personal history of malignancy. DERMATOLOGIC: Denies rashes or pruritus. PSYCHIATRIC: Denies any suicidal or homicidal ideation. Denies hallucinations. PHYSICAL EXAM GENERAL APPEARANCE: The patient is awake, alert, and oriented, in no acute cardiopulmonary distress. NEUROLOGICAL: Cranial nerves II-XII grossly intact. Motor is 5/5 in bilateral upper and lower extremities proximal to distal. No sensory deficits. HEENT: Face is symmetric. Pupils are equal and reactive. Extraocular movements are intact. NECK: Supple. No JVD. No thyromegaly. No submental, submandibular, pre- /postauricular, occipital or supraclavicular lymphadenopathy. CHEST: Normal chest expansion. No Telemetry. LUNGS: Absence of any rales, rhonchi or any wheezing. CARDIOVASCULAR: Regular. S1 and S2 normal. No appreciable rubs, murmurs or gallops. ABDOMEN: Soft, non tender and nondistended. There is no rebound, voluntary guarding, or rigidity. : Deferred. No Braun's EXTREMITIES: Non-edematous and not cyanotic. No clubbing. Good capillary refill. SKIN: No skin breakdown. Vital Signs (last 8hr) Date Time Temp Pulse Resp B/P (MAP) Pulse Ox O2 Delivery O2 Flow Rate FiO2 01/30/24 08:00 98.6 86 15 140/57 97 Room Air 01/30/24 04:31 98.6 71 18 147/66 96 Room Air 21 LABS: Laboratory: Test 01/30/24 03:08 01/28/24 15:39 Range/Units White Blood Count 6.5 4.8-10.8 K/uL Red Blood Count 3.15 L 4.50-6.20 MIL/uL Hemoglobin 8.4 L 14.0-18.0 g/dL Hematocrit 26.7 L 42-54 % Mean Corpuscular Volume 84.8 79-99 fL Mean Corpuscular Hemoglobin 26.7 L 27.0-33.0 pg Mean Corpuscular Hemoglobin Concent 31.5 L 32.0-36.0 g/dL Red Cell Distribution Width 15.6 H 11.0-15.5 % Platelet Count 265 130-400 K/uL Mean Platelet Volume 9.9 7.5-10.5 fL Immature Granulocyte % (Auto) 1.9 H 0-1 % Neutrophils (%) (Auto) 72.5 40.0-77.0 % Lymphocytes (%) (Auto) 10.2 L 21.0-51.0 % Monocytes (%) (Auto) 11.2 3.0-13.0 % Eosinophils (%) (Auto) 3.9 0.0-8.0 % Basophils (%) (Auto) 0.3 0.0-5.0 % Neutrophils # (Auto) 4.7 1.8-7.7 K/uL Lymphocytes # (Auto) 0.7 L 1.0-4.8 K/uL Monocytes # (Auto) 0.7 0.1-1.0 K/uL Eosinophils # (Auto) 0.25 0.00-0.70 K/uL Basophils # (Auto) 0.02 0.00-0.20 K/uL Absolute Immature Granulocyte (auto 0.12 0-1 K/uL Nucleated Red Blood Cells 0.0 0.0-0.19 % Sodium Level 135 L 136-145 mmol/L Potassium Level 3.6 3.5-5.1 mmol/L Chloride Level 107 101-111 mmol/L Carbon Dioxide Level 21 21-32 mmol/L Blood Urea Nitrogen 14 7-18 mg/dL Creatinine 1.6 H 0.5-1.3 mg/dL Glomerular Filtration Rate Calc 42 >90 mL/min Random Glucose 144 H 70-105 mg/dL Total Calcium 8.7 8.5-10.1 mg/dL Phosphorus Level 2.5 2.5-4.9 mg/dL Magnesium Level 1.70 L 1.80-2.40 mg/dL Total Bilirubin 0.3 0.2-1.0 mg/dL Aspartate Amino Transf (AST/SGOT) 18 10-37 U/L Alanine Aminotransferase (ALT/SGPT) 13 12-78 U/L Alkaline Phosphatase 182 H 50-136 U/L Total Protein 6.4 6.0-8.3 g/dL Albumin 1.7 L 3.5-5.0 g/dL Iron Level 24 L 65-175 mcg/dL Total Iron Binding Capacity 169 L 250-450 mcg/dL Percent Iron Saturation 14.2 L 30-44 % Vitamin D 25-Hydroxy 30.6 30.0-100.0 ng/mL Current Medications Medications (Trade) Dose Ordered Sig/Zaida Route PRN Reason Start Time Stop Time Status Last Admin Dose Admin Acetaminophen (TYLenol 500MG TAB) 500 mg Q6H PRN PO MILD PAIN (1-3) 01/27/24 14:30 02/26/24 14:29 01/28/24 06:53 500 MG Amlodipine Besylate (NorvASC 5MG TAB) 5 mg Q24H PO 01/27/24 14:30 02/26/24 14:29 01/29/24 15:03 5 MG Aspirin (Aspirin 81mg Ec Tab) 81 mg DAILY PO 01/28/24 09:00 02/27/24 08:59 01/30/24 08:18 81 MG Ceftriaxone Sodium (ROCEphine 1G INJ) 1 gm ONCE IVPB 01/27/24 13:30 01/27/24 21:30 DC 01/27/24 13:35 1 GM Ferrous Sulfate (Ferrous Sulfate) 325 mg DAILY PO 01/29/24 09:00 02/28/24 08:59 01/30/24 08:19 325 MG Finasteride (PROscar 5 MG TAB) 5 mg HS PO 01/27/24 21:00 02/26/24 20:59 01/29/24 21:30 5 MG Folic Acid (FOLic ACID 1 MG TABLET) 1 mg DAILY PO 01/29/24 09:00 02/28/24 08:59 01/30/24 08:18 1 MG Furosemide (LASix 20MG TAB) 20 mg DAILY PO 01/28/24 09:00 02/27/24 08:59 01/30/24 08:19 20 MG Heparin Sodium (Porcine) (HEParin 5,000 UNIT VIAL) 5,000 unit Q8H SQ 01/29/24 13:00 02/28/24 12:59 01/30/24 06:52 5,000 UNIT Home Med (Home Medication) (Enzalutamide (Xtandi) 160 MG) AM PO 01/28/24 09:00 02/27/24 08:59 Home Med (Home Medication) (Mirabegron (Myrbetriq) 1 TAB) DAILY PO 01/28/24 09:00 02/27/24 08:59 Hydralazine HCl (APRESOLine 20MG INJ) 10 mg Q6H PRN IV ADMINISTER FOR SBP > 170 01/27/24 15:30 02/26/24 15:29 01/27/24 17:28 10 MG Hydromorphone HCl (DiLAUDid 0.5MG INJ) 0.2 mg Q6H PRN IVP SEVERE PAIN (7-10) 01/27/24 20:30 01/28/24 16:16 DC 01/28/24 14:46 0.2 MG Hydromorphone HCl (DiLAUDid 0.5MG INJ) 0.5 mg Q2HPRN PRN IVP SEVERE PAIN (7-10) 01/29/24 11:30 02/03/24 11:29 01/30/24 09:37 0.5 MG Isosorbide Mononitrate (Ismo) 30 mg AM PO 01/28/24 09:00 02/27/24 08:59 01/30/24 08:18 30 MG Loperamide HCl (Immodium Liquid) 4 mg ONCE PRN PO DIARRHEA 01/30/24 02:30 01/30/24 02:57 DC 01/30/24 02:54 4 MG Losartan Potassium (CozAAR 50 mg TAB) 50 mg DAILY PO 01/28/24 16:00 01/27/24 17:41 DC Losartan Potassium (CozAAR 50 mg TAB) 50 mg Q24H PO 01/27/24 18:00 02/27/24 15:59 01/29/24 17:04 50 MG Magnesium Sulfate 50 ml @ 0 mls/hr PROTOCOL PRN IV PROTOCOL 01/29/24 10:30 02/28/24 10:29 01/30/24 06:47 25 MLS/HR Morphine Sulfate (morPHINE 2MG SYG) 2 mg Q4H PRN IVP SEVERE PAIN (7-10) 01/28/24 16:30 02/04/24 16:29 01/29/24 08:54 2 MG Morphine Sulfate (morPHINE 2MG SYG) 2 mg Q6H PRN IVP SEVERE PAIN (7-10) 01/27/24 14:30 01/27/24 20:16 DC Ondansetron HCl (zoFRAN 4MG INJ) 4 mg Q6H PRN IVP NAUSEA/VOMITING 01/27/24 16:00 02/26/24 15:59 01/29/24 15:02 4 MG Pantoprazole Sodium (PROTonix 40MG TAB) 40 mg ACBKFST PO 01/28/24 09:00 02/27/24 08:59 01/30/24 06:44 40 MG Piperacillin Sod/ Tazobactam Sod (Zosyn 3.375gm+NS 50ml) 3.375 gm Q12H IVPB 01/27/24 14:30 02/06/24 14:29 01/30/24 02:55 3.375 GM Potassium Chloride 100 ml @ 100 mls/hr AD PRN IV POTASSIUM PROTOCOL 01/29/24 10:30 02/28/24 10:29 Potassium Chloride (K-Dur/Klor-Con 20meq) 20 meq AD PRN PO POTASSIUM PROTOCOL 01/29/24 10:30 02/28/24 10:29 01/30/24 06:45 20 MEQ Potassium Chloride (KCl 10% Elixir 20meq/15ml) 20 meq AD PRN PO POTASSIUM PROTOCOL 01/29/24 10:30 02/28/24 10:29 11/20/24 08:17 20 MEQ Simvastatin (zoCOR) 40 mg HS PO 01/29/24 21:00 02/26/24 20:59 01/29/24 21:29 40 MG Simvastatin (zoCOR) 80 mg HS PO 01/27/24 21:00 01/29/24 10:17 DC 01/28/24 19:18 80 MG Sodium Chloride 1,000 ml @ 50 mls/hr Q20H IV 01/27/24 14:30 02/26/24 14:29 01/29/24 04:24 50 MLS/HR Tamsulosin HCl (FloMAX) 0.4 mg BID PO 01/27/24 21:00 02/26/24 20:59 01/30/24 08:18 0.4 MG Tamsulosin HCl (FloMAX) 0.4 mg ONCE PO 01/27/24 17:00 01/27/24 21:00 DC 01/27/24 18:29 0.4 MG Vitamin B Complex (Vitamin B-12) 100 mcg DAILY PO 01/29/24 09:00 02/28/24 08:59 01/30/24 08:19 100 MCG DIAGNOSTICS / RADIOLOGY: PROCEDURE: ABD PELVWO - CT ABD/PEL WO CON RENAL/APPY Exam Type: CT ABD/PEL WO CON RENAL/APPY Clinical Information: HYDRONEPHROSIS Comparison: None Contrast: 100 cc's Isovue 370 IV, no complications or adverse reactions CT Dose Index (CTDI): 31.60 mGy Dose Length Product (DLP): 1740.80 total mGy-cm Findings: Urinary bladder has irregular thickened wall. The prostate is enlarged. Bilateral chronic hydroureteronephrosis is seen with significant loss of cortical thickness of both kidneys consistent with atrophy. These findings are suggestive of chronic bladder outlet obstruction. Emphysematous changes of the lower lobes are seen bilaterally. The stomach is unremarkable except for a hiatal hernia. It shows no wall thickening. No gross ulceration is seen. It is not overly distended. There are no surrounding inflammatory changes. No wall lesions are identified to suggest cancer. The spleen is unremarkable. It is not enlarged. The pancreas shows normal anatomy. It is not fatty replaced. It shows no lesions. The pancreatic duct is not dilated. The gallbladder is surgically absent. The adrenal glands are unremarkable. There is no enlargement. No lesions are noted. The liver is unremarkable. It shows no focal masses. The appendix is unremarkable. It shows no evidence of inflammation. No appendicolith is seen. The small bowel is unremarkable. There is no evidence of dilatation to suggest obstruction. No evidence of adynamic ileus is seen. There is no small bowel wall thickening to suggest enteritis. The colon is unremarkable. The other pelvic structures are unremarkable. The bony and vascular structures are unremarkable for the patient's age. IMPRESSION: Chronic bladder outlet obstruction with bilateral chronic hydroureteronephrosis and atrophy of the kidneys. Status post cholecystectomy. Other findings as described. This study was performed using dose reduction techniques to include automated exposure control and/or adjustment of the mA and/or kV according to patient size. 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 Continue GI prophylaxis with Protonix Continue DVT prophylaxis 5000 t.i.d. SQ Repeat CBC, CMP labs tomorrow AM TRACEE CAZARES MD Jan 30, 2024 11:13
[2024-01-30 12:00] VITALS: BP_SYST 122; BP_SYST 140; BP_DIAS 57; BP_DIAS 63; PULSE 86; PULSE 88; RESP 14; RESP 15; TEMP 98.5; TEMP 98.6
--- NOTE | 2024-01-30 14:23 | NUR ---
DR CAMARENA UPDATE DR CAMARENA'S OFFICE CALLED BACK TO REQUEST IMAGING TO BE FAXED OVER FOR RESULTS TO BE REVIEWED. FAXED OVER CT ABDOMEN/PELVIS RESULTS AND BONE SCAN WELL REQUESTED. NO FURTHER ORDERS AT THIS TIME.
--- NOTE | 2024-01-30 15:12 | PN ---
NEPHROLOGY PROGRESS NOTE Date/Time Patient Seen: Jan 30, 2024 Reason for Consultation: 15:08 SUBJECTIVE: This is a 83-year-old male with underlying history of prostate cancer with recent history of radiation treatment maintained on outpatient treatment with enzalutamide, chronic kidney disease, hypertension, hyperlipidemia, BPH. He presented to the ER for further evaluation with back pain, generalized we akness and hematuria He is followed by Dr Villa. S/p Braun catheter removal. Repeat CT of the abdomen showed chronic bladder outlet obstruction with bilateral chronic hydroureteronephrosis and atrophy of the kidneys. Status post cholecystectomy. Pending further Urology recommendations He was Noted with elevated BUN/creatinine We are consulted for renal failure Renal function is stable Electrolytes are stable UA positive for proteinuria and leukocyte esterase Continues on antibiotics He is complaining of nausea and diarrhea. He was seen in the medical floor, Prognosis remains guarded. REVIEW OF SYSTEMS: GENERAL: Negative for any nausea, vomiting, fevers, chills, or weight loss. NEUROLOGIC: Negative for any blurry vision, blind spots, double vision, facial asymmetry, dysphagia, dysarthria, hemiparesis, hemisensory deficits, vertigo, ataxia. HEENT: Negative for any head trauma, neck trauma, neck stiffness, photophobia, phonophobia, sinusitis, rhinitis. CARDIAC: Negative for any chest pain, dyspnea on exertion, paroxysmal nocturnal dyspnea, peripheral edema. PULMONARY: Negative for any shortness of breath, wheezing, COPD, or TB exposure. GASTROINTESTINAL: Negative for any abdominal pain, nausea, vomiting, bright red blood per rectum, melena. GENITOURINARY: Negative for any dysuria, hematuria, incontinence. INTEGUMENTARY: Negative for any rashes, cuts, insect bites. RHEUMATOLOGIC: Negative for any joint pains, photosensitive rashes, history of vasculitis or kidney problems. HEMATOLOGIC: Negative for any abnormal bruising, frequent infections or bleeding. Vital Signs (last 8hr) Date Time Temp Pulse Resp B/P (MAP) Pulse Ox O2 Delivery O2 Flow Rate FiO2 01/28/24 12:21 98.2 109 18 126/76 97 Room Air 21 01/28/24 08:35 98.1 84 17 157/77 99 Room Air 21 01/28/24 08:00 99 Room Air* 0 21 PHYSICAL EXAM: GENERAL: Alert and oriented x 3. No acute distress. Well-nourished. EYES: EOMI. Anicteric. HENT: Moist mucous membranes. No scleral icterus. No cervical lymphadenopathy. LUNGS: Clear to auscultation bilaterally. No accessory muscle use. CARDIOVASCULAR: Regular rate and rhythm. No murmur. No JVD. ABDOMEN: Soft, non-tender and non-distended. No palpable masses. EXTREMITIES: No edema. Non-tender.?SKIN: No rashes or lesions. Warm. NEUROLOGIC: No focal neurological deficits. CN II-XII grossly intact, but not individually tested. PSYCHIATRIC: Cooperative. Appropriate mood and affect. Current Medications Medications (Trade) Dose Ordered Sig/Zaida Route PRN Reason Start Time Stop Time Status Last Admin Dose Admin Acetaminophen (TYLenol 500MG TAB) 500 mg Q6H PRN PO MILD PAIN (1-3) 01/27/24 14:30 02/26/24 14:29 01/28/24 06:53 500 MG Amlodipine Besylate (NorvASC 5MG TAB) 5 mg Q24H PO 01/27/24 14:30 02/26/24 14:29 01/27/24 16:49 5 MG Aspirin (Aspirin 81mg Ec Tab) 81 mg DAILY PO 01/28/24 09:00 02/27/24 08:59 01/28/24 09:31 81 MG Ceftriaxone Sodium (ROCEphine 1G INJ) 1 gm ONCE IVPB 01/27/24 13:30 01/27/24 21:30 DC 01/27/24 13:35 1 GM Finasteride (PROscar 5 MG TAB) 5 mg HS PO 01/27/24 21:00 02/26/24 20:59 01/27/24 20:06 5 MG Furosemide (LASix 20MG TAB) 20 mg DAILY PO 01/28/24 09:00 02/27/24 08:59 01/28/24 09:32 20 MG Home Med (Home Medication) (Enzalutamide (Xtandi) 160 MG) AM PO 01/28/24 09:00 02/27/24 08:59 Home Med (Home Medication) (Mirabegron (Myrbetriq) 1 TAB) DAILY PO 01/28/24 09:00 02/27/24 08:59 Hydralazine HCl (APRESOLine 20MG INJ) 10 mg Q6H PRN IV ADMINISTER FOR SBP > 170 01/27/24 15:30 02/26/24 15:29 01/27/24 17:28 10 MG Hydromorphone HCl (DiLAUDid 0.5MG INJ) 0.2 mg Q6H PRN IVP SEVERE PAIN (7-10) 01/27/24 20:30 02/01/24 20:29 01/28/24 05:16 0.2 MG Isosorbide Mononitrate (Ismo) 30 mg AM PO 01/28/24 09:00 02/27/24 08:59 01/28/24 09:32 30 MG Losartan Potassium (CozAAR 50 mg TAB) 50 mg DAILY PO 01/28/24 16:00 01/27/24 17:41 DC Losartan Potassium (CozAAR 50 mg TAB) 50 mg Q24H PO 01/27/24 18:00 02/27/24 15:59 01/27/24 18:29 50 MG Morphine Sulfate (morPHINE 2MG SYG) 2 mg Q6H PRN IVP SEVERE PAIN (7-10) 01/27/24 14:30 01/27/24 20:16 DC Ondansetron HCl (zoFRAN 4MG INJ) 4 mg Q6H PRN IVP NAUSEA/VOMITING 01/27/24 16:00 02/26/24 15:59 Pantoprazole Sodium (PROTonix 40MG TAB) 40 mg ACBKFST PO 01/28/24 09:00 02/27/24 08:59 01/28/24 09:32 40 MG Piperacillin Sod/ Tazobactam Sod (Zosyn 3.375gm+NS 50ml) 3.375 gm Q12H IVPB 01/27/24 14:30 02/06/24 14:29 01/28/24 03:27 3.375 GM Simvastatin (zoCOR) 80 mg HS PO 01/27/24 21:00 02/26/24 20:59 01/27/24 22:15 80 MG Sodium Chloride 1,000 ml @ 50 mls/hr Q20H IV 01/27/24 14:30 02/26/24 14:29 01/28/24 09:43 50 MLS/HR Tamsulosin HCl (FloMAX) 0.4 mg BID PO 01/27/24 21:00 02/26/24 20:59 01/28/24 09:31 0.4 MG Tamsulosin HCl (FloMAX) 0.4 mg ONCE PO 01/27/24 17:00 01/27/24 21:00 DC 01/27/24 18:29 0.4 MG LABORATORY: [ ] Hematology Labs: Test 01/30/24 03:08 Range/Units White Blood Count 6.5 4.8-10.8 K/uL Red Blood Count 3.15 L 4.50-6.20 MIL/uL Hemoglobin 8.4 L 14.0-18.0 g/dL Hematocrit 26.7 L 42-54 % Mean Corpuscular Volume 84.8 79-99 fL Mean Corpuscular Hemoglobin 26.7 L 27.0-33.0 pg Mean Corpuscular Hemoglobin Concent 31.5 L 32.0-36.0 g/dL Red Cell Distribution Width 15.6 H 11.0-15.5 % Platelet Count 265 130-400 K/uL Mean Platelet Volume 9.9 7.5-10.5 fL Immature Granulocyte % (Auto) 1.9 H 0-1 % Neutrophils (%) (Auto) 72.5 40.0-77.0 % Lymphocytes (%) (Auto) 10.2 L 21.0-51.0 % Monocytes (%) (Auto) 11.2 3.0-13.0 % Eosinophils (%) (Auto) 3.9 0.0-8.0 % Basophils (%) (Auto) 0.3 0.0-5.0 % Neutrophils # (Auto) 4.7 1.8-7.7 K/uL Lymphocytes # (Auto) 0.7 L 1.0-4.8 K/uL Monocytes # (Auto) 0.7 0.1-1.0 K/uL Eosinophils # (Auto) 0.25 0.00-0.70 K/uL Basophils # (Auto) 0.02 0.00-0.20 K/uL Absolute Immature Granulocyte (auto 0.12 0-1 K/uL Nucleated Red Blood Cells 0.0 0.0-0.19 % Chemistry Labs: Test 01/30/24 03:08 01/28/24 15:39 Range/Units Sodium Level 135 L 136-145 mmol/L Potassium Level 3.6 3.5-5.1 mmol/L Chloride Level 107 101-111 mmol/L Carbon Dioxide Level 21 21-32 mmol/L Blood Urea Nitrogen 14 7-18 mg/dL Creatinine 1.6 H 0.5-1.3 mg/dL Glomerular Filtration Rate Calc 42 >90 mL/min Random Glucose 144 H 70-105 mg/dL Total Calcium 8.7 8.5-10.1 mg/dL Phosphorus Level 2.5 2.5-4.9 mg/dL Magnesium Level 1.70 L 1.80-2.40 mg/dL Total Bilirubin 0.3 0.2-1.0 mg/dL Aspartate Amino Transf (AST/SGOT) 18 10-37 U/L Alanine Aminotransferase (ALT/SGPT) 13 12-78 U/L Alkaline Phosphatase 182 H 50-136 U/L Total Protein 6.4 6.0-8.3 g/dL Albumin 1.7 L 3.5-5.0 g/dL Iron Level 24 L 65-175 mcg/dL Total Iron Binding Capacity 169 L 250-450 mcg/dL Percent Iron Saturation 14.2 L 30-44 % Vitamin D 25-Hydroxy 30.6 30.0-100.0 ng/mL DIAGNOSTICS / RADIOLOGY: REASON: HYDRONEPHROSIS ORDERING PHYSICIAN: ANNA MARIE CAMARENA MD PROCEDURE: ABD PELVWO - CT ABD/PEL WO CON RENAL/APPY Exam Type: CT ABD/PEL WO CON RENAL/APPY Clinical Information: HYDRONEPHROSIS Comparison: None Contrast: 100 cc's Isovue 370 IV, no complications or adverse reactions CT Dose Index (CTDI): 31.60 mGy Dose Length Product (DLP): 1740.80 total mGy-cm Findings: Urinary bladder has irregular thickened wall. The prostate is enlarged. Bilateral chronic hydroureteronephrosis is seen with significant loss of cortical thickness of both kidneys consistent with atrophy. These findings are suggestive of chronic bladder outlet obstruction. Emphysematous changes of the lower lobes are seen bilaterally. The stomach is unremarkable except for a hiatal hernia. It shows no wall thickening. No gross ulceration is seen. It is not overly distended. There are no surrounding inflammatory changes. No wall lesions are identified to suggest cancer. The spleen is unremarkable. It is not enlarged. The pancreas shows normal anatomy. It is not fatty replaced. It shows no lesions. The pancreatic duct is not dilated. The gallbladder is surgically absent. The adrenal glands are unremarkable. There is no enlargement. No lesions are noted. The liver is unremarkable. It shows no focal masses. The appendix is unremarkable. It shows no evidence of inflammation. No appendicolith is seen. The small bowel is unremarkable. There is no evidence of dilatation to suggest obstruction. No evidence of adynamic ileus is seen. There is no small bowel wall thickening to suggest enteritis. The colon is unremarkable. The other pelvic structures are unremarkable. The bony and vascular structures are unremarkable for the patient's age. IMPRESSION: Chronic bladder outlet obstruction with bilateral chronic hydroureteronephrosis and atrophy of the kidneys. Status post cholecystectomy. Other findings as described. This study was performed using dose reduction techniques to include automated exposure control and/or adjustment of the mA and/or kV according to patient size. DICTATED BY: FELICIANO NIETO MD DATE: 01/29/241811 REASON: assess LVEF, r/o valvulopathy, EKG with RBDr. Quoc DUVAL to read ORDERING PHYSICIAN: NADER TATE MD PROCEDURE: ECHO CMP - ECHO 2-D COMPLETE APPROVED REPORT EXAM: Two-dimensional and M-mode echocardiogram with Doppler and color Doppler. INDICATION ICD: assess LVEF, r/o valvulopathy 2D Dimensions RVDd 3.5 cm LVEF(%) 63.3 (>50%) LVED Vol(simp.) 117.0 mL IVSd 1.9 (0.7-1.1cm) FS(%) 34 % LVES Vol(simp.) 48.0 mL LVDd 4.4 (3.8-5.6cm) LA (2D) 4.1 (1.6-4.0cm) LVEF(%, simp.) 59 % PWd 1.5 (0.7-1.1cm) Ao Root(2D) 4.0 (2.0-3.7cm) LA ESV INDEX (4CH) 38.10 mL/m2 IVSs 1.8 cm LVOT diam 2.3 (1.8-2.4cm) LA ESV INDEX (2CH) 27.70 mL/m2 LVDs 2.9 (2.5-4.0cm) IVC diam 1.8 cm LA ESV INDEX (BP) 33.60 mL/m2 PWs 2.0 cm M-Mode Dimensions EPSS 0.7 cm LA (MM) 4.1 (1.6-4.0cm) Ao Root(MM) 3.6 (2.0-3.7cm) Aortic Valve AoV VTI 0.2 m Ao Mean GR 3.0 mmHg LVOT VTI 0.12 m DEMOND (VMAX) 3.1 cm2 DEMOND (VTI) 3.1 cm2 Mitral Valve MV E Vmax 42.4 cm/s DECEL Time 106 ms MV A Vmax 71.6 cm/s P 1/2 T 64 ms E/A ratio 0.6 MVA (PHT) 3.4 cm2 TDI E/E' Lateral 4.3 Lateral E' Peak V 9.90 cm/s Left Ventricle The left ventricle is normal size. Normal wall motion Moderate concentric left ventricular hypertrophy. LVEF is 55-60%. The LV diastolic function was unable to be assessed due to atrial arrhythmia. Right Ventricle The right ventricle is normal size. The right ventricular systolic function is normal. Atria The left atrium size is normal. The right atrium size is normal. Aortic Valve The aortic valve is mildly thickened but opens well. No aortic regurgitation is present. There is no aortic valvular stenosis. Mitral Valve The mitral valve is normal in structure. There is no mitral valve regurgitation noted. There is no mitral valve stenosis. Tricuspid Valve The tricuspid valve is normal in structure. There is no tricuspid valve regurgitation noted. Pulmonic Valve Not well seen There is no pulmonic valvular regurgitation. Great Vessels The aortic root is normal in size. The IVC is normal in size and collapses >50% with inspiration. Pericardium There is no pericardial effusion. Conclusion LVEF is 55-60%. The LV diastolic function was unable to be assessed due to atrial arrhythmia. Moderate concentric left ventricular hypertrophy. The left ventricle is normal size. Normal wall motion The aortic valve is mildly thickened but opens well. There is no pericardial effusion. Normal pulmonary pressure Study quality was adequate DICTATED BY: YENNIFER SEXTON MD DATE: 01/28/24 0932 REASON: assess for any signficant infiltrates ORDERING PHYSICIAN: NADER TATE MD PROCEDURE: CXR1VW - CHEST 1VW CHEST 1VW CLINICAL HISTORY: assess for any signficant infiltrates COMPARISON: None TECHNIQUE: Single view of the chest was obtained. FINDINGS: Lungs are clear. Cardiac size upper limits of normal to mildly enlarged. The bony structures are within normal limits. IMPRESSION: Borderline heart size. DICTATED BY: MONICA FALCON DO DATE: 01/27/242105 REASON: WEAKNESS, X 2 WEEKS ORDERING PHYSICIAN: NADER TATE MD PROCEDURE: HEAD WO - CT HEAD/BRAIN W/O CONTRAST CT HEAD WITHOUT CONTRAST INDICATION: Weakness TECHNIQUE: Noncontrast axial helical CT images from the vertex through the skull base using 5 mm slice thickness without contrast material. Coronal and sagittal reconstructions were also included. Dose reduction techniques was used using integrated, automated and adaptive dose reduction exposure control. CT was performed with one or more of the following dose reduction techniques: Automated exposure control, adjustment of the mA and/or kV according to patient size, or use of iterative reconstruction technique. COMPARISON: None FINDINGS: Scattered and coalescent subcortical and periventricular white matter low attenuating areas likely represent residual of chronic small vessel arteriopathy and/or remote vascular insult. Generalized mild cerebral cortical atrophy is present.. No evidence for abnormal extra-axial fluid collections or masses. The ventricles and sulci are normal in size and configuration. No evidence for intracranial parenchymal, epidural, or subdural hemorrhage, mass effect or midline shift. The dubon-white matter differentiation is well preserved. No secondary evidence to suggest acute ischemia. Mild calcific plaque is present along the john of the cavernous segments of both internal carotid arteries. The brainstem and cerebellum appear normal. The visualized orbits appear unremarkable. The visible paranasal sinuses and mastoid air cells are clear. The calvarium appears normal. IMPRESSION: Chronic white matter ischemic changes, mild brain atrophy, and arteriosclerotic disease as described, without acute component. DICTATED BY: ANMOL CHEN MD DATE: 01/27/24 1446 REASON: PROSTATE CANCER, ASSESS FOR HYDRONEPHROSIS, HX OF CKD ORDERING PHYSICIAN: NADER TATE MD PROCEDURE: ABD PEL WO - CT ABDOMEN/PELVIS W/O CONTRAST CT ABDOMEN WITHOUT CONTRAST. CT PELVIS WITHOUT CONTRAST. INDICATION: Prostate cancer, evaluate for hydronephrosis TECHNIQUE: Routine transaxial imaging using 5 mm slice thickness through the abdomen and pelvis without the administration of IV contrast. Thin slice reconstructions are also provided. Coronal and sagittal reformatted images acquired for interpretation. CT was performed with one or more of the following dose reduction techniques: Automated exposure control, adjustment of the mA and/or kV according to patient size, or use of iterative reconstruction technique. COMPARISON: 06/07/2023 FINDINGS: ON NONCONTRAST IMAGING: ABDOMEN: Heart size is normal. Scarring at both lung bases. Moderate bilateral hydroureteronephrosis. The liver is normal in size and smooth in contour without biliary duct dilation. The spleen is normal in size and attenuation. The gallbladder is absent. Several miniscule calcifications within the pancreatic parenchyma without pancreatic duct dilation. The adrenal glands appear normal. No significant abdominal, retrocrural or retroperitoneal adenopathy noted. No evidence for intra-abdominal free air or organized fluid collection. Mild calcific plaque is noted along the abdominal aortic and iliac vessel john without aneurysmal dilation. PELVIS: Small fat-containing nonobstructing left inguinal hernia. Chronic-appearing urinary bladder wall thickening, but associated mild surrounding inflammatory fat stranding. No evidence for free air or organized pelvic fluid collection. No significant pelvic adenopathy detected. Several diverticula along the distal colon. Terminal ileum appears unremarkable. The appendix appears normal. Prostate gland is enlarged. Visible osseous structures are intact. IMPRESSION: 1. Enlarged prostate gland, findings suggesting acute on chronic cystitis, and moderate bilateral hydroureteronephrosis. 2. Distal colonic diverticulosis. 3. Chronic pancreatitis. 4. Small fat-containing nonobstructing left inguinal hernia. DICTATED BY: ANMOL CHEN MD DATE: 01/27/24 1446 ASSESSMENT: Acute on chronic renal failure Acute on chronic bilateral moderate hydroureteronephrosis Complicated urinary tract infection with significant cystitis Hematuria Recent fall Hypertensive urgency Underlying history of prostate cancer Recent history of syncope Debility/frailty/deconditioning, Moderate to severe protein calorie malnutrition with associated 20 lb weight loss in one month Rule out radiation cystitis Hypertension Hyperlipidemia GERD BPH PLAN: Labs, diagnostic, radiologic exams reviewed and interpreted by myself and supervising physician. We have reviewed external records in detail Pending further Urology recommendations Require close monitoring of renal function and electrolytes Order CBC, CMP, complete iron panel, ferritin and electrolytes in am IV iron/Epogen as needed Continue with antibiotics BiPAP as necessary, for respiratory distress Monitor blood pressure adjust medication doses as needed Avoid hypotensive episodes May use Dilaudid 0.5 mg IV every 6 hours as needed for severe pain Monitor blood sugars Strict intake, output, and daily weight should be monitored Please renally adjust medications Avoid nephrotoxic and nonsteroidal drugs Avoid contrast if possible Will continue to monitor renal function, anemia, electrolytes Treatment plan discussed with patient Questions were answered We have discussed with the other team physicians in detail about the care plan We will continue to monitor the patient closely ATTESTATION BY PHYSICIAN I have seen and examined the patient. I reviewed the documentation, medical decision making, and treatment plan as noted by the mid-level provider above. I agree with the findings and plan of care. LAMONT CURRY MD, [facility] Jan 30, 2024 15:12
[2024-01-30 16:00] VITALS: BP 129/66; PULSE 85; RESP 16; TEMP 98.2
--- NOTE | 2024-01-30 16:23 | NUR ---
DCP CM SPOKE TO PT INITIAL ASSESSMENT DONE. PATIENT WAS INDEPENDENT PRIOR TO ADMISSION, LIVES AT HOME ALONE, BROTHER LIVES CLOSE BY. PT HAS PROVIDER DAILY. DENIES ANY OTHER EQUIPMENT/SERVICES. FEELS SAFE TO GO BACK HOME, ARRANGES OWN NEEDS, BROTHER/PROVIDER ABLE TO ASSIST WITH TRANSPORTATION NECESSARY. DCP HOME ONCE STABLE. CM TO CONTINUE TO FOLLOW UP. Addendum: 01/30/24 at 1624 by CONSUELO WATKINS LVN CM Amended: Links added.
[2024-01-30 20:00] VITALS: BP 140/68; PULSE 72; RESP 20; TEMP 98.9
[2024-01-30 20:05] VITALS: O2SAT 95
[2024-01-30] MEDS: trAZOdone HCL 50 MG TAB PO ONE (21:13)
[2024-01-31] VITALS (8 sets, daily range): BP systolic 110–171; BP diastolic 56–69; PULSE 67–92; RESP 18–20; TEMP 98.4–99.3; O2SAT 92–97
[2024-01-31] MEDS: LOPERAMIDE 1 MG/7.5 ML UDCUP PO ONE (04:00)
[2024-01-31] MEDS: LOPERAMIDE HCL 2 MG CAP PO ONE (04:01)
[2024-01-31] MEDS: LOPERAMIDE 1 MG/7.5 ML UDCUP ONE (04:02)
[2024-01-31 05:15] LABS: BASOPHILS # (AUTO) 0.02 K/uL (0.00-0.20); BASOPHILS % (AUTO) 0.4 % (0.0-5.0); EOSINOPHILS # (AUTO) 0.23 K/uL (0.00-0.70); EOSINOPHILS % (AUTO) 4.1 % (0.0-8.0); HEMATOCRIT 25.3 % (42-54); IMMATURE GRANULOCYTE ABSOLUTE 0.11 K/uL (0-1); LYMPHOCYTES # (AUTO) 0.6 K/uL (1.0-4.8); LYMPHOCYTES % (AUTO) 11.3 % (21.0-51.0); MEAN CORPUSCULAR HEMOGLOBIN 26.9 pg (27.0-33.0); MEAN CORPUSCULAR HGB CONC 31.6 g/dL (32.0-36.0); MEAN CORPUSCULAR VOLUME 85.2 fL (79-99); MONOCYTES # (AUTO) 0.7 K/uL (0.1-1.0); MONOCYTES % (AUTO) 12.2 % (3.0-13.0); PLATELET COUNT (AUTO) 253 K/uL (130-400); RED BLOOD CELL COUNT(AUTO) 2.97 MIL/uL (4.50-6.20); RED CELL DISTRIBUTION WIDTH 15.5 % (11.0-15.5); WHITE BLOOD COUNT (AUTO) 5.6 K/uL (4.8-10.8)
[2024-01-31 05:40] LABS: ALBUMIN 1.7 g/dL (3.5-5.0); BILIRUBIN,TOTAL 0.2 mg/dL (0.2-1.0); CREATININE 1.8 mg/dL (0.5-1.3); MAGNESIUM 2.3 mg/dL (1.80-2.40); PHOSPHORUS 2.8 mg/dL (2.5-4.9); POTASSIUM 3.8 mmol/L (3.5-5.1); TOTAL PROTEIN, SERUM 6.3 g/dL (6.0-8.3)
[2024-01-31] MEDS ORDERED: hydroMORPHone 0.5 MG SYG (0.5MG/0.5ML) IVP PRN (11:00)
--- NOTE | 2024-01-31 12:15 | NUR ---
NEW CONSULT FOR GI DUE TO PATIENT'S NAUSEA, ANEMIA, AND LOSS OF APPETITE. CALLED ANSWERING SERVED, WAS ON THE LINE FOR 15 MINUTES, NO RESPONSE, LEFT A MESSAGE. WILL CALL BACK AT LATER TIME. Addendum: 01/31/24 at 1220 by HARRY GARCES LVN RN SERVICE
--- NOTE | 2024-01-31 12:35 | NUR ---
PAGED DR CAMARENA REGARDING RESULTS OF BONE SCAN AND FURTHER RECOMMENDATIONS REGARDING HYDRONEPHROSIS, UNABLE TO GET THROUGH TO SOMEONE, LEFT A VOICEMAIL, WILL RE-PAGE.
--- NOTE | 2024-01-31 13:12 | NUR ---
PAGE DR CAMARENA'S ANSWERING SERVICE, SPOKE WITH PRADEEP AND LET HER KNOW WE NEEDED TO PAGE DR CAMARENA REGARDING RESULTS OF IMAGING, AND FURTHER RECOMMENDATIONS. SHE STATED SHE WILL SEND THE PAGE OUT.
--- NOTE | 2024-01-31 13:20 | NUR ---
GI CONSULT PAGED ALISHA SNEED WHO WORKS WITH [facility]. SHE IS AWARE OF CONSULT, AND VERBALIZES UNDERSTANDING. PLAN OF CARE ON GOING.
--- NOTE | 2024-01-31 14:00 | NUR ---
Attempted to see patient this am however patient refused stating he felt bloated and nauseated. Informed nurseJena. Attempted this pm however patient was showering.Informed HAND II TUBE BENDER Pt would be back. Third attempt made at 1400. Patient out of the shower and son is trying to get him to eat, deferred PT. NurseJena, informed. As per nurse and AWS CONSULTANT, patient has been getting up to the bathroom and got up to shower. They expressed no safety concerns at this time.
--- NOTE | 2024-01-31 14:39 | PN ---
[facility] PROGRESS NOTE Date of Service: Jan 31, 2024 Time of Service: 14:29 SUBJECTIVE: Patient is seen at the bedside. He is awake, alert and oriented. Vitals temperature 98.1, pulse 84, respiratory rate 17, blood pressure 155/77 SpO2 99% on room air. He complains of diffuse, constant, severe pelvic pain, loss of appetite, nausea. No acute events last night. He denies headache, dizziness, vomiting, chest pain, palpitations, diarrhea. He had a bowel movement in the morning. Braun's catheter is in place with 1.5 L pink tinged UO. LABS: CBC hemoglobin 9.1, CMP BUN 19, creatinine decreased from 2.1 To 1.8, alkaline phosphatase 208. 2D echo resulted in LVEF is 55-60%, moderate concentric left ventricular hypertrophy. CT abdomen/pelvis resulted in enlarged prostate gland, findings suggesting acute on chronic cystitis, and moderate bilateral hydroureteronephrosis, Distal colonic diverticulosis, Chronic pancreatitis and small fat-containing nonobstructing left inguinal hernia. CT head and chest x-ray resulted in no acute findings. Pending bone scan results. 01/28 Patient is seen at the bedside. He is awake, alert and oriented. He is hemodynamically stable. He still complains of constant, severe pelvic pain at the catheter site and diarrhea. No acute events last night. He denies headache, dizziness, chest pain, vomiting, palpitations, constipation. Foleys catheter is in place with 2.4 L yellowish coloured UO. Labs hemoglobin 8.3, CMP shows low potassium 3.2, Creatinine trended down from 1.8 to 1.6, low iron 24, TIBC 169,% saturation 14.2, alkaline phosphatase 178, PSA 0.014. 2D echo resulted in LVEF is 55-60%. Bone scan NM resulted in degenerative changes with increased activities in the shoulders, elbows, knees and ankles bilaterally. There is area with increase activity in the right distal humerus of questionable etiology. 01/29 patient is seen at the bedside. He is awake alert and oriented. Vitals temperature 98.6, pulse rate 86, blood pressure 140/57, respiratory rate 15 , SpO2 97% on room air. Braun's catheter has been removed yesterday. Patient complains of moderate diffuse pelvic pain, nausea and diarrhea. Urinary output is 600 mL. Labs hemoglobin 8.4, sodium 135, BUN 14 , creatinine 1.6, magnesium 1.7, alkaline phosphatase 182. Repeat CT abdomen/pelvis resulted in Chronic bladder outlet obstruction with bilateral chronic hydroureteronephrosis and atrophy of the kidneys. Patient is cleared from Oncology standpoint for discharge. 01/30 Patient is seen at the bedside. He is awake alert and oriented. He is hemodynamically stable. He still complains of generalized weakness, moderate diffuse pelvic pain, severe nausea. He has not been eating properly since 1 week due to lack of appetite and nausea. Urine output is 850 mL. Lab results hemoglobin 8, BUN 13, creatinine 1.8, alkaline phosphatase 181, albumin 1.7. Pending gastroenterology consult. REVIEW OF SYSTEMS CONSTITUTIONAL: Denies fevers, chills, or night sweats, generalized weakness NEUROLOGICAL: Recent history of fall ENT: No hearing loss, otalgia, otorrhea, rhinitis, rhinorrhea, hoarseness, or sore throat. CARDIOVASCULAR: Denies any exertional angina, dyspnea on exertion, orthopnea, paroxysmal nocturnal dyspnea, palpitations, life-threatening arrhythmias, claudication. PULMONARY: Denies any shortness of breath, cough, phlegm/sputum, hemoptysis, pleuritic chest pain. SLEEP: Denies morning headaches, daytime somnolence or napping. Denies difficulty falling asleep, staying asleep, waking from sleep. Denies knowledge of snoring. GASTROINTESTINAL: Reports having nausea, with poor oral intake and associated weight loss, diffuse pelvic pain GENITOURINARY: Moderate Suprapubic pain,yellowish tinged urine ENDOCRINOLOGIC: Denies polyuria, polydipsia, polyphagia or heat/cold intolerances. HEMATOLOGIC: Denies thrombophilia/previous clots, or coagulopathy/bleeding disorders. ONCOLOGIC: Denies personal history of malignancy. DERMATOLOGIC: Denies rashes or pruritus. PSYCHIATRIC: Denies any suicidal or homicidal ideation. Denies hallucinations. PHYSICAL EXAM GENERAL APPEARANCE: The patient is awake, alert, and oriented, in no acute cardiopulmonary distress. NEUROLOGICAL: Cranial nerves II-XII grossly intact. Motor is 5/5 in bilateral upper and lower extremities proximal to distal. No sensory deficits. HEENT: Face is symmetric. Pupils are equal and reactive. Extraocular movements are intact. NECK: Supple. No JVD. No thyromegaly. No submental, submandibular, pre- /postauricular, occipital or supraclavicular lymphadenopathy. CHEST: Normal chest expansion. No Telemetry. LUNGS: Absence of any rales, rhonchi or any wheezing. CARDIOVASCULAR: Regular. S1 and S2 normal. No appreciable rubs, murmurs or gallops. ABDOMEN: Soft, non tender and nondistended. There is no rebound, voluntary guarding, or rigidity. : Deferred. No Braun's EXTREMITIES: Non-edematous and not cyanotic. No clubbing. Good capillary refill. SKIN: No skin breakdown. Vital Signs (last 8hr) Date Time Temp Pulse Resp B/P (MAP) Pulse Ox O2 Delivery O2 Flow Rate FiO2 01/31/24 11:55 98.8 92 18 110/58 93 Room Air 21 01/31/24 08:15 97 Room Air* 0 21 01/31/24 07:55 98.4 71 18 171/69 97 Room Air 21 LABS: Laboratory: Test 01/31/24 03:28 Range/Units White Blood Count 5.6 4.8-10.8 K/uL Red Blood Count 2.97 L 4.50-6.20 MIL/uL Hemoglobin 8.0 L 14.0-18.0 g/dL Hematocrit 25.3 L 42-54 % Mean Corpuscular Volume 85.2 79-99 fL Mean Corpuscular Hemoglobin 26.9 L 27.0-33.0 pg Mean Corpuscular Hemoglobin Concent 31.6 L 32.0-36.0 g/dL Red Cell Distribution Width 15.5 11.0-15.5 % Platelet Count 253 130-400 K/uL Mean Platelet Volume 10.0 7.5-10.5 fL Immature Granulocyte % (Auto) 2.0 H 0-1 % Neutrophils (%) (Auto) 70.0 40.0-77.0 % Lymphocytes (%) (Auto) 11.3 L 21.0-51.0 % Monocytes (%) (Auto) 12.2 3.0-13.0 % Eosinophils (%) (Auto) 4.1 0.0-8.0 % Basophils (%) (Auto) 0.4 0.0-5.0 % Neutrophils # (Auto) 4.0 1.8-7.7 K/uL Lymphocytes # (Auto) 0.6 L 1.0-4.8 K/uL Monocytes # (Auto) 0.7 0.1-1.0 K/uL Eosinophils # (Auto) 0.23 0.00-0.70 K/uL Basophils # (Auto) 0.02 0.00-0.20 K/uL Absolute Immature Granulocyte (auto 0.11 0-1 K/uL Nucleated Red Blood Cells 0.0 0.0-0.19 % Sodium Level 135 L 136-145 mmol/L Potassium Level 3.8 3.5-5.1 mmol/L Chloride Level 106 101-111 mmol/L Carbon Dioxide Level 20 L 21-32 mmol/L Blood Urea Nitrogen 13 7-18 mg/dL Creatinine 1.8 H 0.5-1.3 mg/dL Glomerular Filtration Rate Calc 37 >90 mL/min Random Glucose 101 70-105 mg/dL Total Calcium 8.8 8.5-10.1 mg/dL Phosphorus Level 2.8 2.5-4.9 mg/dL Magnesium Level 2.30 1.80-2.40 mg/dL Ferritin 87 30-400 ng/mL Total Bilirubin 0.2 0.2-1.0 mg/dL Aspartate Amino Transf (AST/SGOT) 19 10-37 U/L Alanine Aminotransferase (ALT/SGPT) 12 12-78 U/L Alkaline Phosphatase 181 H 50-136 U/L Total Protein 6.3 6.0-8.3 g/dL Albumin 1.7 L 3.5-5.0 g/dL Current Medications Medications (Trade) Dose Ordered Sig/Zaida Route PRN Reason Start Time Stop Time Status Last Admin Dose Admin Acetaminophen (TYLenol 500MG TAB) 500 mg Q6H PRN PO MILD PAIN (1-3) 01/27/24 14:30 02/26/24 14:29 01/28/24 06:53 500 MG Amlodipine Besylate (NorvASC 5MG TAB) 5 mg Q24H PO 01/27/24 14:30 02/26/24 14:29 01/29/24 15:03 5 MG Aspirin (Aspirin 81mg Ec Tab) 81 mg DAILY PO 01/28/24 09:00 02/27/24 08:59 01/31/24 08:26 81 MG Ceftriaxone Sodium (ROCEphine 1G INJ) 1 gm ONCE IVPB 01/27/24 13:30 01/27/24 21:30 DC 01/27/24 13:35 1 GM Ferrous Sulfate (Ferrous Sulfate) 325 mg DAILY PO 01/29/24 09:00 02/28/24 08:59 01/31/24 08:27 325 MG Finasteride (PROscar 5 MG TAB) 5 mg HS PO 01/27/24 21:00 02/26/24 20:59 01/30/24 20:04 5 MG Folic Acid (FOLic ACID 1 MG TABLET) 1 mg DAILY PO 01/29/24 09:00 02/28/24 08:59 01/31/24 08:26 1 MG Furosemide (LASix 20MG TAB) 20 mg DAILY PO 01/28/24 09:00 02/27/24 08:59 01/31/24 08:27 20 MG Heparin Sodium (Porcine) (HEParin 5,000 UNIT VIAL) 5,000 unit Q8H SQ 01/29/24 13:00 02/28/24 12:59 01/31/24 06:29 5,000 UNIT Home Med (Home Medication) (Enzalutamide (Xtandi) 160 MG) AM PO 01/28/24 09:00 02/27/24 08:59 Home Med (Home Medication) (Mirabegron (Myrbetriq) 1 TAB) DAILY PO 01/28/24 09:00 02/27/24 08:59 Hydralazine HCl (APRESOLine 20MG INJ) 10 mg Q6H PRN IV ADMINISTER FOR SBP > 170 01/27/24 15:30 02/26/24 15:29 01/27/24 17:28 10 MG Hydromorphone HCl (DiLAUDid 0.5MG INJ) 0.2 mg Q6H PRN IVP SEVERE PAIN (7-10) 01/27/24 20:30 01/28/24 16:16 DC 01/28/24 14:46 0.2 MG Hydromorphone HCl (DiLAUDid 0.5MG INJ) 0.5 mg Q2HPRN PRN IVP SEVERE PAIN (7-10) 01/29/24 11:30 01/31/24 11:03 DC 01/31/24 10:25 0.5 MG Hydromorphone HCl (DiLAUDid 0.5MG INJ) 0.5 mg Q6H PRN IVP SEVERE PAIN (7-10) 01/31/24 11:00 02/05/24 10:59 Isosorbide Mononitrate (Ismo) 30 mg AM PO 01/28/24 09:00 02/27/24 08:59 01/31/24 08:26 30 MG Loperamide HCl (Immodium Liquid) 4 mg ONCE PRN PO DIARRHEA 01/30/24 02:30 01/30/24 02:57 DC 01/30/24 02:54 4 MG Losartan Potassium (CozAAR 50 mg TAB) 50 mg DAILY PO 01/28/24 16:00 01/27/24 17:41 DC Losartan Potassium (CozAAR 50 mg TAB) 50 mg Q24H PO 01/27/24 18:00 02/27/24 15:59 01/30/24 20:06 50 MG Magnesium Sulfate 50 ml @ 0 mls/hr PROTOCOL PRN IV PROTOCOL 01/29/24 10:30 02/28/24 10:29 01/30/24 06:47 25 MLS/HR Morphine Sulfate (morPHINE 2MG SYG) 2 mg Q4H PRN IVP SEVERE PAIN (7-10) 01/28/24 16:30 02/04/24 16:29 01/29/24 08:54 2 MG Morphine Sulfate (morPHINE 2MG SYG) 2 mg Q6H PRN IVP SEVERE PAIN (7-10) 01/27/24 14:30 01/27/24 20:16 DC Ondansetron HCl (zoFRAN 4MG INJ) 4 mg Q6H PRN IVP NAUSEA/VOMITING 01/27/24 16:00 02/26/24 15:59 01/31/24 10:29 4 MG Pantoprazole Sodium (PROTonix 40MG TAB) 40 mg ACBKFST PO 01/28/24 09:00 02/27/24 08:59 01/31/24 06:29 40 MG Piperacillin Sod/ Tazobactam Sod (Zosyn 3.375gm+NS 50ml) 3.375 gm Q12H IVPB 01/27/24 14:30 02/06/24 14:29 01/31/24 01:58 3.375 GM Potassium Chloride 100 ml @ 100 mls/hr AD PRN IV POTASSIUM PROTOCOL 01/29/24 10:30 02/28/24 10:29 Potassium Chloride (K-Dur/Klor-Con 20meq) 20 meq AD PRN PO POTASSIUM PROTOCOL 01/29/24 10:30 02/28/24 10:29 01/30/24 06:45 20 MEQ Potassium Chloride (KCl 10% Elixir 20meq/15ml) 20 meq AD PRN PO POTASSIUM PROTOCOL 01/29/24 10:30 02/28/24 10:29 01/30/24 08:17 20 MEQ Simvastatin (zoCOR) 40 mg HS PO 01/29/24 21:00 02/26/24 20:59 01/30/24 20:04 40 MG Simvastatin (zoCOR) 80 mg HS PO 01/27/24 21:00 01/29/24 10:17 DC 01/28/24 19:18 80 MG Sodium Chloride 1,000 ml @ 50 mls/hr Q20H IV 01/27/24 14:30 02/26/24 14:29 01/29/24 04:24 50 MLS/HR Tamsulosin HCl (FloMAX) 0.4 mg BID PO 01/27/24 21:00 02/26/24 20:59 01/31/24 08:27 0.4 MG Tamsulosin HCl (FloMAX) 0.4 mg ONCE PO 01/27/24 17:00 01/27/24 21:00 DC 01/27/24 18:29 0.4 MG Vitamin B Complex (Vitamin B-12) 100 mcg DAILY PO 01/29/24 09:00 02/28/24 08:59 01/31/24 08:25 100 MCG DIAGNOSTICS / RADIOLOGY: ASSESSMENT: Complicated urinary tract infection with significant cystitis, POA, resolving Hematuria,POA, resolving Chronic anemia, POA, on Iron supplement PO Hypokalemia, improving Hypocalcemia Recent fall, POA Acute on chronic bilateral moderate hydroureteronephrosis, POA Hypertensive urgency, POA Underlying history of prostate cancer, POA , s/p radiation therapy and Enzalutamide Recent history of syncope, POA Debility/frailty/deconditioning, POA Moderate to severe protein calorie malnutrition with associated 20 lb weight loss in one month, POA 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 Continue GI prophylaxis with Protonix Continue DVT prophylaxis 5000 t.i.d. SQ Repeat CBC, CMP labs tomorrow AM TRACEE CAZARES MD Jan 31, 2024 14:39
--- NOTE | 2024-01-31 14:47 | PN ---
NEPHROLOGY PROGRESS NOTE Date/Time Patient Seen: Jan 31, 2024 SUBJECTIVE: This is a 83-year-old male with underlying history of prostate cancer with recent history of radiation treatment maintained on outpatient treatment with enzalutamide, chronic kidney disease, hypertension, hyperlipidemia, BPH. He presented to the ER for further evaluation with back pain, generalized weakness and hematuria He is followed by Dr Villa. S/p Braun catheter removal. Repeat CT of the abdomen showed chronic bladder outlet obstruction with bilateral chronic hydroureteronephrosis and atrophy of the kidneys. Status post cholecystectomy. Pending further Urology recommendations He was Noted with elevated BUN/creatinine We are consulted for renal failure Renal function is stable Electrolytes are stable Hemoglobin was8, iron panel was noted UA positive for proteinuria and leukocyte esterase Continues on antibiotics Pending GI consult He was seen in the medical floor, in no acute distress Prognosis remains guarded. REVIEW OF SYSTEMS: GENERAL: Negative for any nausea, vomiting, fevers, chills, or weight loss. NEUROLOGIC: Negative for any blurry vision, blind spots, double vision, facial asymmetry, dysphagia, dysarthria, hemiparesis, hemisensory deficits, vertigo, ataxia. HEENT: Negative for any head trauma, neck trauma, neck stiffness, photophobia, phonophobia, sinusitis, rhinitis. CARDIAC: Negative for any chest pain, dyspnea on exertion, paroxysmal nocturnal dyspnea, peripheral edema. PULMONARY: Negative for any shortness of breath, wheezing, COPD, or TB exposure. GASTROINTESTINAL: Negative for any abdominal pain, nausea, vomiting, bright red blood per rectum, melena. GENITOURINARY: Negative for any dysuria, hematuria, incontinence. INTEGUMENTARY: Negative for any rashes, cuts, insect bites. RHEUMATOLOGIC: Negative for any joint pains, photosensitive rashes, history of vasculitis or kidney problems. HEMATOLOGIC: Negative for any abnormal bruising, frequent infections or bleeding. Vital Signs (last 8hr) Date Time Temp Pulse Resp B/P (MAP) Pulse Ox O2 Delivery O2 Flow Rate FiO2 01/28/24 12:21 98.2 109 18 126/76 97 Room Air 21 01/28/24 08:35 98.1 84 17 157/77 99 Room Air 21 01/28/24 08:00 99 Room Air* 0 21 PHYSICAL EXAM: GENERAL: Alert and oriented x 3. No acute distress. Well-nourished. EYES: EOMI. Anicteric. HENT: Moist mucous membranes. No scleral icterus. No cervical lymphadenopathy. LUNGS: Clear to auscultation bilaterally. No accessory muscle use. CARDIOVASCULAR: Regular rate and rhythm. No murmur. No JVD. ABDOMEN: Soft, non-tender and non-distended. No palpable masses. EXTREMITIES: No edema. Non-tender.?SKIN: No rashes or lesions. Warm. NEUROLOGIC: No focal neurological deficits. CN II-XII grossly intact, but not individually tested. PSYCHIATRIC: Cooperative. Appropriate mood and affect. Current Medications Medications (Trade) Dose Ordered Sig/Zaida Route PRN Reason Start Time Stop Time Status Last Admin Dose Admin Acetaminophen (TYLenol 500MG TAB) 500 mg Q6H PRN PO MILD PAIN (1-3) 01/27/24 14:30 02/26/24 14:29 01/28/24 06:53 500 MG Amlodipine Besylate (NorvASC 5MG TAB) 5 mg Q24H PO 01/27/24 14:30 02/26/24 14:29 01/27/24 16:49 5 MG Aspirin (Aspirin 81mg Ec Tab) 81 mg DAILY PO 01/28/24 09:00 02/27/24 08:59 01/28/24 09:31 81 MG Ceftriaxone Sodium (ROCEphine 1G INJ) 1 gm ONCE IVPB 01/27/24 13:30 01/27/24 21:30 DC 01/27/24 13:35 1 GM Finasteride (PROscar 5 MG TAB) 5 mg HS PO 01/27/24 21:00 02/26/24 20:59 01/27/24 20:06 5 MG Furosemide (LASix 20MG TAB) 20 mg DAILY PO 01/28/24 09:00 02/27/24 08:59 01/28/24 09:32 20 MG Home Med (Home Medication) (Enzalutamide (Xtandi) 160 MG) AM PO 01/28/24 09:00 02/27/24 08:59 Home Med (Home Medication) (Mirabegron (Myrbetriq) 1 TAB) DAILY PO 01/28/24 09:00 02/27/24 08:59 Hydralazine HCl (APRESOLine 20MG INJ) 10 mg Q6H PRN IV ADMINISTER FOR SBP > 170 01/27/24 15:30 02/26/24 15:29 01/27/24 17:28 10 MG Hydromorphone HCl (DiLAUDid 0.5MG INJ) 0.2 mg Q6H PRN IVP SEVERE PAIN (7-10) 01/27/24 20:30 02/01/24 20:29 01/28/24 05:16 0.2 MG Isosorbide Mononitrate (Ismo) 30 mg AM PO 01/28/24 09:00 02/27/24 08:59 01/28/24 09:32 30 MG Losartan Potassium (CozAAR 50 mg TAB) 50 mg DAILY PO 01/28/24 16:00 01/27/24 17:41 DC Losartan Potassium (CozAAR 50 mg TAB) 50 mg Q24H PO 01/27/24 18:00 02/27/24 15:59 01/27/24 18:29 50 MG Morphine Sulfate (morPHINE 2MG SYG) 2 mg Q6H PRN IVP SEVERE PAIN (7-10) 01/27/24 14:30 01/27/24 20:16 DC Ondansetron HCl (zoFRAN 4MG INJ) 4 mg Q6H PRN IVP NAUSEA/VOMITING 01/27/24 16:00 02/26/24 15:59 Pantoprazole Sodium (PROTonix 40MG TAB) 40 mg ACBKFST PO 01/28/24 09:00 02/27/24 08:59 01/28/24 09:32 40 MG Piperacillin Sod/ Tazobactam Sod (Zosyn 3.375gm+NS 50ml) 3.375 gm Q12H IVPB 01/27/24 14:30 02/06/24 14:29 01/28/24 03:27 3.375 GM Simvastatin (zoCOR) 80 mg HS PO 01/27/24 21:00 02/26/24 20:59 01/27/24 22:15 80 MG Sodium Chloride 1,000 ml @ 50 mls/hr Q20H IV 01/27/24 14:30 02/26/24 14:29 01/28/24 09:43 50 MLS/HR Tamsulosin HCl (FloMAX) 0.4 mg BID PO 01/27/24 21:00 02/26/24 20:59 01/28/24 09:31 0.4 MG Tamsulosin HCl (FloMAX) 0.4 mg ONCE PO 01/27/24 17:00 01/27/24 21:00 DC 01/27/24 18:29 0.4 MG LABORATORY: [ ] Hematology Labs: Test 01/31/24 03:28 Range/Units White Blood Count 5.6 4.8-10.8 K/uL Red Blood Count 2.97 L 4.50-6.20 MIL/uL Hemoglobin 8.0 L 14.0-18.0 g/dL Hematocrit 25.3 L 42-54 % Mean Corpuscular Volume 85.2 79-99 fL Mean Corpuscular Hemoglobin 26.9 L 27.0-33.0 pg Mean Corpuscular Hemoglobin Concent 31.6 L 32.0-36.0 g/dL Red Cell Distribution Width 15.5 11.0-15.5 % Platelet Count 253 130-400 K/uL Mean Platelet Volume 10.0 7.5-10.5 fL Immature Granulocyte % (Auto) 2.0 H 0-1 % Neutrophils (%) (Auto) 70.0 40.0-77.0 % Lymphocytes (%) (Auto) 11.3 L 21.0-51.0 % Monocytes (%) (Auto) 12.2 3.0-13.0 % Eosinophils (%) (Auto) 4.1 0.0-8.0 % Basophils (%) (Auto) 0.4 0.0-5.0 % Neutrophils # (Auto) 4.0 1.8-7.7 K/uL Lymphocytes # (Auto) 0.6 L 1.0-4.8 K/uL Monocytes # (Auto) 0.7 0.1-1.0 K/uL Eosinophils # (Auto) 0.23 0.00-0.70 K/uL Basophils # (Auto) 0.02 0.00-0.20 K/uL Absolute Immature Granulocyte (auto 0.11 0-1 K/uL Nucleated Red Blood Cells 0.0 0.0-0.19 % Chemistry Labs: Test 01/31/24 03:28 Range/Units Sodium Level 135 L 136-145 mmol/L Potassium Level 3.8 3.5-5.1 mmol/L Chloride Level 106 101-111 mmol/L Carbon Dioxide Level 20 L 21-32 mmol/L Blood Urea Nitrogen 13 7-18 mg/dL Creatinine 1.8 H 0.5-1.3 mg/dL Glomerular Filtration Rate Calc 37 >90 mL/min Random Glucose 101 70-105 mg/dL Total Calcium 8.8 8.5-10.1 mg/dL Phosphorus Level 2.8 2.5-4.9 mg/dL Magnesium Level 2.30 1.80-2.40 mg/dL Ferritin 87 30-400 ng/mL Total Bilirubin 0.2 0.2-1.0 mg/dL Aspartate Amino Transf (AST/SGOT) 19 10-37 U/L Alanine Aminotransferase (ALT/SGPT) 12 12-78 U/L Alkaline Phosphatase 181 H 50-136 U/L Total Protein 6.3 6.0-8.3 g/dL Albumin 1.7 L 3.5-5.0 g/dL DIAGNOSTICS / RADIOLOGY: REASON: HYDRONEPHROSIS ORDERING PHYSICIAN: ANNA MARIE CAMARENA MD PROCEDURE: ABD PELVWO - CT ABD/PEL WO CON RENAL/APPY Exam Type: CT ABD/PEL WO CON RENAL/APPY Clinical Information: HYDRONEPHROSIS Comparison: None Contrast: 100 cc's Isovue 370 IV, no complications or adverse reactions CT Dose Index (CTDI): 31.60 mGy Dose Length Product (DLP): 1740.80 total mGy-cm Findings: Urinary bladder has irregular thickened wall. The prostate is enlarged. Bilateral chronic hydroureteronephrosis is seen with significant loss of cortical thickness of both kidneys consistent with atrophy. These findings are suggestive of chronic bladder outlet obstruction. Emphysematous changes of the lower lobes are seen bilaterally. The stomach is unremarkable except for a hiatal hernia. It shows no wall thickening. No gross ulceration is seen. It is not overly distended. There are no surrounding inflammatory changes. No wall lesions are identified to suggest cancer. The spleen is unremarkable. It is not enlarged. The pancreas shows normal anatomy. It is not fatty replaced. It shows no lesions. The pancreatic duct is not dilated. The gallbladder is surgically absent. The adrenal glands are unremarkable. There is no enlargement. No lesions are noted. The liver is unremarkable. It shows no focal masses. The appendix is unremarkable. It shows no evidence of inflammation. No appendicolith is seen. The small bowel is unremarkable. There is no evidence of dilatation to suggest obstruction. No evidence of adynamic ileus is seen. There is no small bowel wall thickening to suggest enteritis. The colon is unremarkable. The other pelvic structures are unremarkable. The bony and vascular structures are unremarkable for the patient's age. IMPRESSION: Chronic bladder outlet obstruction with bilateral chronic hydroureteronephrosis and atrophy of the kidneys. Status post cholecystectomy. Other findings as described. This study was performed using dose reduction techniques to include automated exposure control and/or adjustment of the mA and/or kV according to patient size. DICTATED BY: FELICIANO NIETO MD DATE: 01/29/241811 REASON: assess LVEF, r/o valvulopathy, EKG with Dr. Quoc SANDOVAL to read ORDERING PHYSICIAN: NADER TATE MD PROCEDURE: ECHO CMP - ECHO 2-D COMPLETE APPROVED REPORT EXAM: Two-dimensional and M-mode echocardiogram with Doppler and color Doppler. INDICATION ICD: assess LVEF, r/o valvulopathy 2D Dimensions RVDd 3.5 cm LVEF(%) 63.3 (>50%) LVED Vol(simp.) 117.0 mL IVSd 1.9 (0.7-1.1cm) FS(%) 34 % LVES Vol(simp.) 48.0 mL LVDd 4.4 (3.8-5.6cm) LA (2D) 4.1 (1.6-4.0cm) LVEF(%, simp.) 59 % PWd 1.5 (0.7-1.1cm) Ao Root(2D) 4.0 (2.0-3.7cm) LA ESV INDEX (4CH) 38.10 mL/m2 IVSs 1.8 cm LVOT diam 2.3 (1.8-2.4cm) LA ESV INDEX (2CH) 27.70 mL/m2 LVDs 2.9 (2.5-4.0cm) IVC diam 1.8 cm LA ESV INDEX (BP) 33.60 mL/m2 PWs 2.0 cm M-Mode Dimensions EPSS 0.7 cm LA (MM) 4.1 (1.6-4.0cm) Ao Root(MM) 3.6 (2.0-3.7cm) Aortic Valve AoV VTI 0.2 m Ao Mean GR 3.0 mmHg LVOT VTI 0.12 m DEMOND (VMAX) 3.1 cm2 DEMOND (VTI) 3.1 cm2 Mitral Valve MV E Vmax 42.4 cm/s DECEL Time 106 ms MV A Vmax 71.6 cm/s P 1/2 T 64 ms E/A ratio 0.6 MVA (PHT) 3.4 cm2 TDI E/E' Lateral 4.3 Lateral E' Peak V 9.90 cm/s Left Ventricle The left ventricle is normal size. Normal wall motion Moderate concentric left ventricular hypertrophy. LVEF is 55-60%. The LV diastolic function was unable to be assessed due to atrial arrhythmia. Right Ventricle The right ventricle is normal size. The right ventricular systolic function is normal. Atria The left atrium size is normal. The right atrium size is normal. Aortic Valve The aortic valve is mildly thickened but opens well. No aortic regurgitation is present. There is no aortic valvular stenosis. Mitral Valve The mitral valve is normal in structure. There is no mitral valve regurgitation noted. There is no mitral valve stenosis. Tricuspid Valve The tricuspid valve is normal in structure. There is no tricuspid valve regurgitation noted. Pulmonic Valve Not well seen There is no pulmonic valvular regurgitation. Great Vessels The aortic root is normal in size. The IVC is normal in size and collapses >50% with inspiration. Pericardium There is no pericardial effusion. Conclusion LVEF is 55-60%. The LV diastolic function was unable to be assessed due to atrial arrhythmia. Moderate concentric left ventricular hypertrophy. The left ventricle is normal size. Normal wall motion The aortic valve is mildly thickened but opens well. There is no pericardial effusion. Normal pulmonary pressure Study quality was adequate DICTATED BY: YENNIFER SEXTON MD DATE: 01/28/24 0932 REASON: assess for any signficant infiltrates ORDERING PHYSICIAN: NADER TATE MD PROCEDURE: CXR1VW - CHEST 1VW CHEST 1VW CLINICAL HISTORY: assess for any signficant infiltrates COMPARISON: None TECHNIQUE: Single view of the chest was obtained. FINDINGS: Lungs are clear. Cardiac size upper limits of normal to mildly enlarged. The bony structures are within normal limits. IMPRESSION: Borderline heart size. DICTATED BY: MONICA FALCON DO DATE: 01/27/242105 REASON: WEAKNESS, X 2 WEEKS ORDERING PHYSICIAN: NADER TATE MD PROCEDURE: HEAD WO - CT HEAD/BRAIN W/O CONTRAST CT HEAD WITHOUT CONTRAST INDICATION: Weakness TECHNIQUE: Noncontrast axial helical CT images from the vertex through the skull base using 5 mm slice thickness without contrast material. Coronal and sagittal reconstructions were also included. Dose reduction techniques was used using integrated, automated and adaptive dose reduction exposure control. CT was performed with one or more of the following dose reduction techniques: Automated exposure control, adjustment of the mA and/or kV according to patient size, or use of iterative reconstruction technique. COMPARISON: None FINDINGS: Scattered and coalescent subcortical and periventricular white matter low attenuating areas likely represent residual of chronic small vessel arteriopathy and/or remote vascular insult. Generalized mild cerebral cortical atrophy is present.. No evidence for abnormal extra-axial fluid collections or masses. The ventricles and sulci are normal in size and configuration. No evidence for intracranial parenchymal, epidural, or subdural hemorrhage, mass effect or midline shift. The dubon-white matter differentiation is well preserved. No secondary evidence to suggest acute ischemia. Mild calcific plaque is present along the john of the cavernous segments of both internal carotid arteries. The brainstem and cerebellum appear normal. The visualized orbits appear unremarkable. The visible paranasal sinuses and mastoid air cells are clear. The calvarium appears normal. IMPRESSION: Chronic white matter ischemic changes, mild brain atrophy, and arteriosclerotic disease as described, without acute component. DICTATED BY: ANMOL CHEN MD DATE: 01/27/24 1446 REASON: PROSTATE CANCER, ASSESS FOR HYDRONEPHROSIS, HX OF CKD ORDERING PHYSICIAN: NADER ATTE MD PROCEDURE: ABD PEL WO - CT ABDOMEN/PELVIS W/O CONTRAST CT ABDOMEN WITHOUT CONTRAST. CT PELVIS WITHOUT CONTRAST. INDICATION: Prostate cancer, evaluate for hydronephrosis TECHNIQUE: Routine transaxial imaging using 5 mm slice thickness through the abdomen and pelvis without the administration of IV contrast. Thin slice reconstructions are also provided. Coronal and sagittal reformatted images acquired for interpretation. CT was performed with one or more of the following dose reduction techniques: Automated exposure control, adjustment of the mA and/or kV according to patient size, or use of iterative reconstruction technique. COMPARISON: 06/07/2023 FINDINGS: ON NONCONTRAST IMAGING: ABDOMEN: Heart size is normal. Scarring at both lung bases. Moderate bilateral hydroureteronephrosis. The liver is normal in size and smooth in contour without biliary duct dilation. The spleen is normal in size and attenuation. The gallbladder is absent. Several miniscule calcifications within the pancreatic parenchyma without pancreatic duct dilation. The adrenal glands appear normal. No significant abdominal, retrocrural or retroperitoneal adenopathy noted. No evidence for intra-abdominal free air or organized fluid collection. Mild calcific plaque is noted along the abdominal aortic and iliac vessel john without aneurysmal dilation. PELVIS: Small fat-containing nonobstructing left inguinal hernia. Chronic-appearing urinary bladder wall thickening, but associated mild surrounding inflammatory fat stranding. No evidence for free air or organized pelvic fluid collection. No significant pelvic adenopathy detected. Several diverticula along the distal colon. Terminal ileum appears unremarkable. The appendix appears normal. Prostate gland is enlarged. Visible osseous structures are intact. IMPRESSION: 1. Enlarged prostate gland, findings suggesting acute on chronic cystitis, and moderate bilateral hydroureteronephrosis. 2. Distal colonic diverticulosis. 3. Chronic pancreatitis. 4. Small fat-containing nonobstructing left inguinal hernia. DICTATED BY: ANMOL CHEN MD DATE: 01/27/24 1449 ASSESSMENT: Acute on chronic renal failure Anemia Acute on chronic bilateral moderate hydroureteronephrosis Complicated urinary tract infection with significant cystitis Hematuria Recent fall Hypertensive urgency Underlying history of prostate cancer Recent history of syncope Debility/frailty/deconditioning, Moderate to severe protein calorie malnutrition with associated 20 lb weight loss in one month Rule out radiation cystitis Hypertension Hyperlipidemia GERD BPH PLAN: Labs, diagnostic, radiologic exams reviewed and interpreted by myself and supervising physician. We have reviewed external records in detail Pending GI consult Start Venofer 300 mg IV daily x 3 doses. Require close monitoring of renal function and electrolytes Order CBC, CMP, and electrolytes in am Continue with antibiotics BiPAP as necessary, for respiratory distress Monitor blood pressure adjust medication doses as needed Avoid hypotensive episodes May use Dilaudid 0.5 mg IV every 6 hours as needed for severe pain Monitor blood sugars Strict intake, output, and daily weight should be monitored Please renally adjust medications Avoid nephrotoxic and nonsteroidal drugs Avoid contrast if possible Will continue to monitor renal function, anemia, electrolytes Treatment plan discussed with patient Questions were answered We have discussed with the other team physicians in detail about the care plan We will continue to monitor the patient closely ATTESTATION BY PHYSICIAN I have seen and examined the patient. I reviewed the documentation, medical decision making, and treatment plan as noted by the mid-level provider above. I agree with the findings and plan of care. LAMONT CURRY MD, [facility] Jan 31, 2024 14:47
[2024-01-31] MEDS ORDERED: PROCHLORPERAZINE 10MG/2ML INJ IV PRN (15:00)
--- NOTE | 2024-01-31 15:40 | CONS ---
GASTROENTEROLOGY CONSULTATION NOTE Date of Consultation: Jan 31, 2024 Time of Consultation: 15:40 History of Present Illness: [This is an 83-year-old male with past medical history of prostate cancer with recent history of radiation, CKD, hypertension, hyperlipidemia, BPH who presented due to back pain. Patient reported 20 pound weight loss in the last month. He was he has been having poor oral intake. We were consulted due to anemia and concern for GI bleed. Hemoglobin today was 8 with a platelet count of 253. Patient did report melena. He has iron deficiency anemia. No recent EGD or colonoscopy. CT abdomen and pelvis was done that revealed chronic bladder outlet obstruction. Discussion was held regarding EGD and colonoscopy however patient and provider do not believe he can tolerate the colonoscopy prep they are agreeable to EGD. Review of Systems: CONSTITUTIONAL: No malaise or change in sensation of wellbeing. ENMT: No rhinorrhea, otorrhea, sinus pain, ear ache. CARDIOVASCULAR: No angina, palpitations, orthopnea or paroxysmal dyspnea. RESPIRATORY: No SOB. GASTROINTESTINAL: No abdominal pain, nausea, vomiting, diarrhea, hematemesis, melena or change in the patient's habitual bowel movements consistency/number. GENITOURINARY: No dysuria, hematuria or change in bladder continence. MUSCULOSKELETAL: No new muscle pain or decrease in muscular strength. No new joint swelling, redness or tenderness. SKIN: No new rash. Past Medical History: PAST MEDICAL HISTORY: Hypertension, hyperlipidemia, history of prostate cancer, GERD, BPH, chronic kidney disease stage 3, history of nephrolithiasis PAST SURGICAL HISTORY: History of cholecystectomy, history of lithotripsy PAST SOCIAL HISTORY: Currently denies active smoking or alcohol consumption FAMILY HISTORY: Denies pertinent family history Allergies: Denies known drug allergies Coded Allergies: No Known Drug Allergies (Unverified Allergy, Unknown, 01/27/24) Physical Exam: GEN: Awake, alert, oriented in person, time and place, and in no acute distress. HEENT: No sinus tenderness. Tympanic membranes were not examined. No rhinorrhea. Oral pharyngeal mucosa is pink, moist and within normal limits. Neck is supple with no cervical lymphadenopathy, thyromegaly or JVD. CHEST: Inspection, palpation and percussion of the chest were unremarkable. Lung auscultation revealed normal breath sounds bilaterally. CARDIAC: PMI is within normal limits. Heart sounds are regular. Normal S1, S2. No gallop or murmur. ABD: Soft, non-tender and not distended. No peritoneal signs on palpation. No organomegaly. Normal bowel sounds. EXT: No cyanosis or clubbing. No edema. SKIN: Intact. No rashes. JOINTS: No evidence of synovitis or acute arthritis. NEURO: Alert and oriented to name, place and person. Cranial nerve examination is unremarkable. No focal motor deficits. Normal speech. Gait is normal. Strength is normal. Vital Sign (Last 24 Hours) 01/31/24 01/31/24 08:15 11:55 Temp 98.8 Pulse 92 Resp 18 B/P (MAP) 110/58 Pulse Ox 93 O2 Delivery Room Air O2 Flow Rate 0 FiO2 21 Intake & Output (last 24hrs) 01/30/24 01/30/24 01/31/24 15:00 23:00 07:00 Intake Total 400 ml Output Total 700 ml 150 ml Balance -300 ml -150 ml Laboratory: [ ] Laboratory: Test 01/31/24 03:28 Range/Units White Blood Count 5.6 4.8-10.8 K/uL Red Blood Count 2.97 L 4.50-6.20 MIL/uL Hemoglobin 8.0 L 14.0-18.0 g/dL Hematocrit 25.3 L 42-54 % Mean Corpuscular Volume 85.2 79-99 fL Mean Corpuscular Hemoglobin 26.9 L 27.0-33.0 pg Mean Corpuscular Hemoglobin Concent 31.6 L 32.0-36.0 g/dL Red Cell Distribution Width 15.5 11.0-15.5 % Platelet Count 253 130-400 K/uL Mean Platelet Volume 10.0 7.5-10.5 fL Immature Granulocyte % (Auto) 2.0 H 0-1 % Neutrophils (%) (Auto) 70.0 40.0-77.0 % Lymphocytes (%) (Auto) 11.3 L 21.0-51.0 % Monocytes (%) (Auto) 12.2 3.0-13.0 % Eosinophils (%) (Auto) 4.1 0.0-8.0 % Basophils (%) (Auto) 0.4 0.0-5.0 % Neutrophils # (Auto) 4.0 1.8-7.7 K/uL Lymphocytes # (Auto) 0.6 L 1.0-4.8 K/uL Monocytes # (Auto) 0.7 0.1-1.0 K/uL Eosinophils # (Auto) 0.23 0.00-0.70 K/uL Basophils # (Auto) 0.02 0.00-0.20 K/uL Absolute Immature Granulocyte (auto 0.11 0-1 K/uL Nucleated Red Blood Cells 0.0 0.0-0.19 % Sodium Level 135 L 136-145 mmol/L Potassium Level 3.8 3.5-5.1 mmol/L Chloride Level 106 101-111 mmol/L Carbon Dioxide Level 20 L 21-32 mmol/L Blood Urea Nitrogen 13 7-18 mg/dL Creatinine 1.8 H 0.5-1.3 mg/dL Glomerular Filtration Rate Calc 37 >90 mL/min Random Glucose 101 70-105 mg/dL Total Calcium 8.8 8.5-10.1 mg/dL Phosphorus Level 2.8 2.5-4.9 mg/dL Magnesium Level 2.30 1.80-2.40 mg/dL Ferritin 87 30-400 ng/mL Total Bilirubin 0.2 0.2-1.0 mg/dL Aspartate Amino Transf (AST/SGOT) 19 10-37 U/L Alanine Aminotransferase (ALT/SGPT) 12 12-78 U/L Alkaline Phosphatase 181 H 50-136 U/L Total Protein 6.3 6.0-8.3 g/dL Albumin 1.7 L 3.5-5.0 g/dL Current Medications Medications (Trade) Dose Ordered Sig/Zaida Route PRN Reason Start Time Stop Time Status Last Admin Dose Admin Acetaminophen (TYLenol 500MG TAB) 500 mg Q6H PRN PO MILD PAIN (1-3) 01/27/24 14:30 02/26/24 14:29 01/28/24 06:53 500 MG Amlodipine Besylate (NorvASC 5MG TAB) 5 mg Q24H PO 01/27/24 14:30 02/26/24 14:29 01/31/24 15:28 5 MG Aspirin (Aspirin 81mg Ec Tab) 81 mg DAILY PO 01/28/24 09:00 02/27/24 08:59 01/31/24 08:26 81 MG Ceftriaxone Sodium (ROCEphine 1G INJ) 1 gm ONCE IVPB 01/27/24 13:30 01/27/24 21:30 DC 01/27/24 13:35 1 GM Ferrous Sulfate (Ferrous Sulfate) 325 mg DAILY PO 01/29/24 09:00 02/28/24 08:59 01/31/24 08:27 325 MG Finasteride (PROscar 5 MG TAB) 5 mg HS PO 01/27/24 21:00 02/26/24 20:59 01/30/24 20:04 5 MG Folic Acid (FOLic ACID 1 MG TABLET) 1 mg DAILY PO 01/29/24 09:00 02/28/24 08:59 01/31/24 08:26 1 MG Furosemide (LASix 20MG TAB) 20 mg DAILY PO 01/28/24 09:00 02/27/24 08:59 01/31/24 08:27 20 MG Heparin Sodium (Porcine) (HEParin 5,000 UNIT VIAL) 5,000 unit Q8H SQ 01/29/24 13:00 02/28/24 12:59 01/31/24 06:29 5,000 UNIT Home Med (Home Medication) (Enzalutamide (Xtandi) 160 MG) AM PO 01/28/24 09:00 02/27/24 08:59 Home Med (Home Medication) (Mirabegron (Myrbetriq) 1 TAB) DAILY PO 01/28/24 09:00 02/27/24 08:59 Hydralazine HCl (APRESOLine 20MG INJ) 10 mg Q6H PRN IV ADMINISTER FOR SBP > 170 01/27/24 15:30 02/26/24 15:29 01/27/24 17:28 10 MG Hydromorphone HCl (DiLAUDid 0.5MG INJ) 0.2 mg Q6H PRN IVP SEVERE PAIN (7-10) 01/27/24 20:30 01/28/24 16:16 DC 01/28/24 14:46 0.2 MG Hydromorphone HCl (DiLAUDid 0.5MG INJ) 0.5 mg Q2HPRN PRN IVP SEVERE PAIN (7-10) 01/29/24 11:30 01/31/24 11:03 DC 01/31/24 10:25 0.5 MG Hydromorphone HCl (DiLAUDid 0.5MG INJ) 0.5 mg Q6H PRN IVP SEVERE PAIN (7-10) 01/31/24 11:00 02/05/24 10:59 Isosorbide Mononitrate (Ismo) 30 mg AM PO 01/28/24 09:00 02/27/24 08:59 01/31/24 08:26 30 MG Loperamide HCl (Immodium Liquid) 4 mg ONCE PRN PO DIARRHEA 01/30/24 02:30 01/30/24 02:57 DC 01/30/24 02:54 4 MG Losartan Potassium (CozAAR 50 mg TAB) 50 mg DAILY PO 01/28/24 16:00 01/27/24 17:41 DC Losartan Potassium (CozAAR 50 mg TAB) 50 mg Q24H PO 01/27/24 18:00 02/27/24 15:59 01/30/24 20:06 50 MG Magnesium Sulfate 50 ml @ 0 mls/hr PROTOCOL PRN IV PROTOCOL 01/29/24 10:30 02/28/24 10:29 01/30/24 06:47 25 MLS/HR Morphine Sulfate (morPHINE 2MG SYG) 2 mg Q4H PRN IVP SEVERE PAIN (7-10) 01/28/24 16:30 02/04/24 16:29 01/29/24 08:54 2 MG Morphine Sulfate (morPHINE 2MG SYG) 2 mg Q6H PRN IVP SEVERE PAIN (7-10) 01/27/24 14:30 01/27/24 20:16 DC Ondansetron HCl (zoFRAN 4MG INJ) 4 mg Q6H PRN IVP NAUSEA/VOMITING 01/27/24 16:00 02/26/24 15:59 01/31/24 10:29 4 MG Pantoprazole Sodium (PROTonix 40MG TAB) 40 mg ACBKFST PO 01/28/24 09:00 02/27/24 08:59 01/31/24 06:29 40 MG Piperacillin Sod/ Tazobactam Sod (Zosyn 3.375gm+NS 50ml) 3.375 gm Q12H IVPB 01/27/24 14:30 02/06/24 14:29 01/31/24 15:28 3.375 GM Potassium Chloride 100 ml @ 100 mls/hr AD PRN IV POTASSIUM PROTOCOL 01/29/24 10:30 02/28/24 10:29 Potassium Chloride (K-Dur/Klor-Con 20meq) 20 meq AD PRN PO POTASSIUM PROTOCOL 01/29/24 10:30 02/28/24 10:29 01/30/24 06:45 20 MEQ Potassium Chloride (KCl 10% Elixir 20meq/15ml) 20 meq AD PRN PO POTASSIUM PROTOCOL 01/29/24 10:30 02/28/24 10:29 01/30/24 08:17 20 MEQ Prochlorperazine Edisylate (Compazine 10mg/ 2ml Inj) 10 mg Q6H PRN IV NAUSEA/VOMITING 01/31/24 15:00 03/01/24 14:59 Simvastatin (zoCOR) 40 mg HS PO 01/29/24 21:00 02/26/24 20:59 01/30/24 20:04 40 MG Simvastatin (zoCOR) 80 mg HS PO 01/27/24 21:00 01/29/24 10:17 DC 01/28/24 19:18 80 MG Sodium Chloride 1,000 ml @ 50 mls/hr Q20H IV 01/27/24 14:30 02/26/24 14:29 01/29/24 04:24 50 MLS/HR Tamsulosin HCl (FloMAX) 0.4 mg BID PO 01/27/24 21:00 02/26/24 20:59 01/31/24 08:27 0.4 MG Tamsulosin HCl (FloMAX) 0.4 mg ONCE PO 01/27/24 17:00 01/27/24 21:00 DC 01/27/24 18:29 0.4 MG Vitamin B Complex (Vitamin B-12) 100 mcg DAILY PO 01/29/24 09:00 02/28/24 08:59 01/31/24 08:25 100 MCG Diagnostics / Radiology: [COPY/PASTE HERE IF NO REPORTS PLEASE DELETE SECTION] Assessment: Melena BEBETO Plan: EGD in am Continue GI prophylaxis Advance diet as tolerated Avoid NSAIDs Antireflux measures Monitor H&H and transfuse as needed Call with questions, concerns or change in clinical status Patient to follow-up at clinic post discharge Thank you for this consult ALISHA HANDLEY PRODUCTION CONTROL COORDINATOR Jan 31, 2024 15:40
--- NOTE | 2024-01-31 15:45 | NUR ---
ATTEMPTED TO PAGE ASASE ONCE AGAIN. NO RESPONSE. PRIMARY TEAM MADE AWARE. PLAN OF CARE ON GOING.
--- NOTE | 2024-01-31 20:06 | NUR ---
HEPARIN HELD PT HAVING PROCEDURE IN AM.
[2024-01-31] MEDS: trAZOdone HCL 50 MG TAB PO ONE (21:57)
[2024-02-01] VITALS (24 sets, daily range): BP systolic 94–169; BP diastolic 53–88; PULSE 60–89; RESP 15–20; TEMP 97.1–98.6; O2SAT 96
[2024-02-01 05:24] LABS: BASOPHILS # (AUTO) 0.01 K/uL (0.00-0.20); BASOPHILS % (AUTO) 0.2 % (0.0-5.0); EOSINOPHILS # (AUTO) 0.18 K/uL (0.00-0.70); EOSINOPHILS % (AUTO) 3.6 % (0.0-8.0); HEMATOCRIT 26.7 % (42-54); IMMATURE GRANULOCYTE ABSOLUTE 0.11 K/uL (0-1); LYMPHOCYTES # (AUTO) 0.6 K/uL (1.0-4.8); LYMPHOCYTES % (AUTO) 11.4 % (21.0-51.0); MEAN CORPUSCULAR HEMOGLOBIN 26.7 pg (27.0-33.0); MEAN CORPUSCULAR HGB CONC 31.1 g/dL (32.0-36.0); MEAN CORPUSCULAR VOLUME 85.9 fL (79-99); MONOCYTES # (AUTO) 0.7 K/uL (0.1-1.0); NEUTROPHILS # (AUTO) 3.5 K/uL (1.8-7.7); NEUTROPHILS % (AUTO) 69.6 % (40.0-77.0); PLATELET COUNT (AUTO) 233 K/uL (130-400); RED BLOOD CELL COUNT(AUTO) 3.11 MIL/uL (4.50-6.20); RED CELL DISTRIBUTION WIDTH 15.9 % (11.0-15.5)
[2024-02-01 05:47] LABS: ALBUMIN 1.7 g/dL (3.5-5.0); BILIRUBIN,TOTAL 0.3 mg/dL (0.2-1.0); CREATININE 1.9 mg/dL (0.5-1.3); POTASSIUM 3.5 mmol/L (3.5-5.1); TOTAL PROTEIN, SERUM 6.3 g/dL (6.0-8.3)
[2024-02-01] MEDS ORDERED: LIDOCAINE PF 100MG/5ML (2%) SYRINGE 5ML ONE (07:48)
[2024-02-01] MEDS ORDERED: proPOFol 10 MG/ML 20ML VIAL IV ONE (07:48)
[2024-02-01] MEDS ORDERED: ketaMINE 50MG/ML SYRINGE 50 MG/ML DISP.SYRIN ONE (07:48)
--- NOTE | 2024-02-01 10:03 | NUR ---
ATTEMPT TO CALL DR. CAMARENA OFFICE. CALLED DR. CAMARENA OFFICE 4 TIMES AND NO ANSWER, TIMBER SIZER OPERATOR KEEPS ANSWERING AND HANGING UP RIGHT AWAY. NOTIFIED RESIDENT OF NOT BEING ABLE TO GET HOLD OF ANY STAFF FROM DR. CAMARENA OFFICE.
--- NOTE | 2024-02-01 11:01 | PN ---
[facility] PROGRESS NOTE Date of Service: Feb 01, 2024 Time of Service: 10:52 SUBJECTIVE: Patient is seen at the bedside. He is awake, alert and oriented. Vitals temperature 98.1, pulse 84, respiratory rate 17, blood pressure 155/77 SpO2 99% on room air. He complains of diffuse, constant, severe pelvic pain, loss of appetite, nausea. No acute events last night. He denies headache, dizziness, vomiting, chest pain, palpitations, diarrhea. He had a bowel movement in the morning. Braun's catheter is in place with 1.5 L pink tinged UO. LABS: CBC hemoglobin 9.1, CMP BUN 19, creatinine decreased from 2.1 To 1.8, alkaline phosphatase 208. 2D echo resulted in LVEF is 55-60%, moderate concentric left ventricular hypertrophy. CT abdomen/pelvis resulted in enlarged prostate gland, findings suggesting acute on chronic cystitis, and moderate bilateral hydroureteronephrosis, Distal colonic diverticulosis, Chronic pancreatitis and small fat-containing nonobstructing left inguinal hernia. CT head and chest x-ray resulted in no acute findings. Pending bone scan results. 01/28 Patient is seen at the bedside. He is awake, alert and oriented. He is hemodynamically stable. He still complains of constant, severe pelvic pain at the catheter site and diarrhea. No acute events last night. He denies headache, dizziness, chest pain, vomiting, palpitations, constipation. Foleys catheter is in place with 2.4 L yellowish coloured UO. Labs hemoglobin 8.3, CMP shows low potassium 3.2, Creatinine trended down from 1.8 to 1.6, low iron 24, TIBC 169,% saturation 14.2, alkaline phosphatase 178, PSA 0.014. 2D echo resulted in LVEF is 55-60%. Bone scan NM resulted in degenerative changes with increased activities in the shoulders, elbows, knees and ankles bilaterally. There is area with increase activity in the right distal humerus of questionable etiology. 01/29 patient is seen at the bedside. He is awake alert and oriented. Vitals temperature 98.6, pulse rate 86, blood pressure 140/57, respiratory rate 15 , SpO2 97% on room air. Braun's catheter has been removed yesterday. Patient complains of moderate diffuse pelvic pain, nausea and diarrhea. Urinary output is 600 mL. Labs hemoglobin 8.4, sodium 135, BUN 14 , creatinine 1.6, magnesium 1.7, alkaline phosphatase 182. Repeat CT abdomen/pelvis resulted in Chronic bladder outlet obstruction with bilateral chronic hydroureteronephrosis and atrophy of the kidneys. Patient is cleared from Oncology standpoint for discharge. 01/30 Patient is seen at the bedside. He is awake alert and oriented. He is hemodynamically stable. He still complains of generalized weakness, moderate diffuse pelvic pain, severe nausea. He has not been eating properly since 1 week due to lack of appetite and nausea. Urine output is 850 mL. Lab results hemoglobin 8, BUN 13, creatinine 1.8, alkaline phosphatase 181, albumin 1.7. Pending gastroenterology consult. 01/31 Patient is seen at the bedside. He is awake alert and oriented. Vitals temperature 97.2, pulse rate 76, respiratory rate 20, blood pressure 169/88. He underwent an EGD today in the morning,revealed 2 small angiodysplastic lesions with bleeding in stomach which were coagulated and biopsy of patchy inflammation in antrum were taken for histology study. No acute events last night. His nausea has been significantly improved. He complains of mild pelvic pain. He is able to tolerate full liquid diet comfortably. Patient had a semi-solid black colored stool. Urine output 500 mL. Labs hemoglobin 8.3, BUN 13 , creatinine 1.9, alkaline phosphatase 182, albumin 1.7. Stool occult blood test is negative. REVIEW OF SYSTEMS CONSTITUTIONAL: Denies fevers, chills, or night sweats, generalized weakness NEUROLOGICAL: Recent history of fall ENT: No hearing loss, otalgia, otorrhea, rhinitis, rhinorrhea, hoarseness, or sore throat. CARDIOVASCULAR: Denies any exertional angina, dyspnea on exertion, orthopnea, paroxysmal nocturnal dyspnea, palpitations, life-threatening arrhythmias, claudication. PULMONARY: Denies any shortness of breath, cough, phlegm/sputum, hemoptysis, pleuritic chest pain. SLEEP: Denies morning headaches, daytime somnolence or napping. Denies diff iculty falling asleep, staying asleep, waking from sleep. Denies knowledge of snoring. GASTROINTESTINAL: Chronic poor oral intake and associated weight loss, diffuse pelvic pain GENITOURINARY: Mild Suprapubic pain,yellowish tinged urine ENDOCRINOLOGIC: Denies polyuria, polydipsia, polyphagia or heat/cold intolerances. HEMATOLOGIC: Denies thrombophilia/previous clots, or coagulopathy/bleeding disorders. ONCOLOGIC: Denies personal history of malignancy. DERMATOLOGIC: Denies rashes or pruritus. PSYCHIATRIC: Denies any suicidal or homicidal ideation. Denies hallucinations. PHYSICAL EXAM GENERAL APPEARANCE: The patient is awake, alert, and oriented, in no acute cardiopulmonary distress. NEUROLOGICAL: Cranial nerves II-XII grossly intact. Motor is 5/5 in bilateral upper and lower extremities proximal to distal. No sensory deficits. HEENT: Face is symmetric. Pupils are equal and reactive. Extraocular movements are intact. NECK: Supple. No JVD. No thyromegaly. No submental, submandibular, pre- /postauricular, occipital or supraclavicular lymphadenopathy. CHEST: Normal chest expansion. No Telemetry. LUNGS: Absence of any rales, rhonchi or any wheezing. CARDIOVASCULAR: Regular. S1 and S2 normal. No appreciable rubs, murmurs or gallops. ABDOMEN: Soft, non tender and nondistended. There is no rebound, voluntary guarding, or rigidity. : Deferred. No Braun's EXTREMITIES: Non-edematous and not cyanotic. No clubbing. Good capillary refill. SKIN: No skin breakdown. Vital Signs (last 8hr) Date Time Temp Pulse Resp B/P (MAP) Pulse Ox O2 Delivery O2 Flow Rate FiO2 02/01/24 09:30 76 20 169/88 96 02/01/24 09:15 72 18 160/76 92 02/01/24 09:00 73 18 164/79 96 02/01/24 08:45 Room Air* 0 02/01/24 08:45 66 20 152/72 96 Room Air 02/01/24 08:40 97.2 66 16 159/67 95 Room Air 02/01/24 08:35 97.2 63 16 155/65 94 Room Air 02/01/24 08:30 97.2 60 16 157/68 94 Room Air 02/01/24 08:25 97.2 62 16 160/62 94 Room Air 02/01/24 08:20 97.2 61 16 153/65 94 Room Air 02/01/24 08:15 97.2 60 16 147/63 94 Nasal Cannula 1.0 02/01/24 08:10 97.2 62 16 153/58 94 Nasal Cannula 1.0 02/01/24 08:05 97.2 60 15 136/63 97 Nasal Cannula 2.0 02/01/24 08:00 97.2 61 15 127/64 96 Nasal Cannula 3.0 02/01/24 07:49 Mask 10.0 02/01/24 07:49 Mask 02/01/24 04:00 98.4 65 20 138/57 95 Room Air LABS: Laboratory: Test 02/01/24 05:14 01/31/24 15:48 01/31/24 03:28 Range/Units White Blood Count 5.0 4.8-10.8 K/uL Red Blood Count 3.11 L 4.50-6.20 MIL/uL Hemoglobin 8.3 L 14.0-18.0 g/dL Hematocrit 26.7 L 42-54 % Mean Corpuscular Volume 85.9 79-99 fL Mean Corpuscular Hemoglobin 26.7 L 27.0-33.0 pg Mean Corpuscular Hemoglobin Concent 31.1 L 32.0-36.0 g/dL Red Cell Distribution Width 15.9 H 11.0-15.5 % Platelet Count 233 130-400 K/uL Mean Platelet Volume 9.6 7.5-10.5 fL Immature Granulocyte % (Auto) 2.2 H 0-1 % Neutrophils (%) (Auto) 69.6 40.0-77.0 % Lymphocytes (%) (Auto) 11.4 L 21.0-51.0 % Monocytes (%) (Auto) 13.0 3.0-13.0 % Eosinophils (%) (Auto) 3.6 0.0-8.0 % Basophils (%) (Auto) 0.2 0.0-5.0 % Neutrophils # (Auto) 3.5 1.8-7.7 K/uL Lymphocytes # (Auto) 0.6 L 1.0-4.8 K/uL Monocytes # (Auto) 0.7 0.1-1.0 K/uL Eosinophils # (Auto) 0.18 0.00-0.70 K/uL Basophils # (Auto) 0.01 0.00-0.20 K/uL Absolute Immature Granulocyte (auto 0.11 0-1 K/uL Nucleated Red Blood Cells 0.0 0.0-0.19 % Sodium Level 137 136-145 mmol/L Potassium Level 3.5 3.5-5.1 mmol/L Chloride Level 107 101-111 mmol/L Carbon Dioxide Level 21 21-32 mmol/L Blood Urea Nitrogen 13 7-18 mg/dL Creatinine 1.9 H 0.5-1.3 mg/dL Glomerular Filtration Rate Calc 35 >90 mL/min Random Glucose 109 H 70-105 mg/dL Total Calcium 8.6 8.5-10.1 mg/dL Total Bilirubin 0.3 0.2-1.0 mg/dL Aspartate Amino Transf (AST/SGOT) 20 10-37 U/L Alanine Aminotransferase (ALT/SGPT) 15 12-78 U/L Alkaline Phosphatase 182 H 50-136 U/L Total Protein 6.3 6.0-8.3 g/dL Albumin 1.7 L 3.5-5.0 g/dL Stool Occult Blood NEGATIVE NEGATIVE Phosphorus Level 2.8 2.5-4.9 mg/dL Magnesium Level 2.30 1.80-2.40 mg/dL Ferritin 87 30-400 ng/mL Current Medications Medications (Trade) Dose Ordered Sig/Zaida Route PRN Reason Start Time Stop Time Status Last Admin Dose Admin Acetaminophen (TYLenol 500MG TAB) 500 mg Q6H PRN PO MILD PAIN (1-3) 01/27/24 14:30 02/26/24 14:29 01/28/24 06:53 500 MG Amlodipine Besylate (NorvASC 5MG TAB) 5 mg Q24H PO 01/27/24 14:30 02/26/24 14:29 01/29/24 15:03 5 MG Aspirin (Aspirin 81mg Ec Tab) 81 mg DAILY PO 01/28/24 09:00 02/27/24 08:59 02/01/24 09:03 81 MG Ceftriaxone Sodium (ROCEphine 1G INJ) 1 gm ONCE IVPB 01/27/24 13:30 01/27/24 21:30 DC 01/27/24 13:35 1 GM Ferrous Sulfate (Ferrous Sulfate) 325 mg DAILY PO 01/29/24 09:00 02/28/24 08:59 02/01/24 09:03 325 MG Finasteride (PROscar 5 MG TAB) 5 mg HS PO 01/27/24 21:00 02/26/24 20:59 01/31/24 19:51 5 MG Folic Acid (FOLic ACID 1 MG TABLET) 1 mg DAILY PO 01/29/24 09:00 02/28/24 08:59 02/01/24 09:03 1 MG Furosemide (LASix 20MG TAB) 20 mg DAILY PO 01/28/24 09:00 02/27/24 08:59 02/01/24 09:03 20 MG Heparin Sodium (Porcine) (HEParin 5,000 UNIT VIAL) 5,000 unit Q8H SQ 01/29/24 13:00 02/28/24 12:59 01/31/24 06:29 5,000 UNIT Home Med (Home Medication) (Enzalutamide (Xtandi) 160 MG) AM PO 01/28/24 09:00 02/27/24 08:59 Home Med (Home Medication) (Mirabegron (Myrbetriq) 1 TAB) DAILY PO 01/28/24 09:00 02/27/24 08:59 Hydralazine HCl (APRESOLine 20MG INJ) 10 mg Q6H PRN IV ADMINISTER FOR SBP > 170 01/27/24 15:30 02/26/24 15:29 01/27/24 17:28 10 MG Hydromorphone HCl (DiLAUDid 0.5MG INJ) 0.2 mg Q6H PRN IVP SEVERE PAIN (7-10) 01/27/24 20:30 01/28/24 16:16 DC 01/28/24 14:46 0.2 MG Hydromorphone HCl (DiLAUDid 0.5MG INJ) 0.5 mg Q2HPRN PRN IVP SEVERE PAIN (7-10) 01/29/24 11:30 01/31/24 11:03 DC 01/31/24 10:25 0.5 MG Hydromorphone HCl (DiLAUDid 0.5MG INJ) 0.5 mg Q6H PRN IVP SEVERE PAIN (7-10) 01/31/24 11:00 02/05/24 10:59 Isosorbide Mononitrate (Ismo) 30 mg AM PO 01/28/24 09:00 02/27/24 08:59 02/01/24 09:04 30 MG Loperamide HCl (Immodium Liquid) 4 mg ONCE PRN PO DIARRHEA 01/30/24 02:30 01/30/24 02:57 DC 01/30/24 02:54 4 MG Losartan Potassium (CozAAR 50 mg TAB) 50 mg DAILY PO 01/28/24 16:00 01/27/24 17:41 DC Losartan Potassium (CozAAR 50 mg TAB) 50 mg Q24H PO 01/27/24 18:00 02/27/24 15:59 01/31/24 17:54 50 MG Magnesium Sulfate 50 ml @ 0 mls/hr PROTOCOL PRN IV PROTOCOL 01/29/24 10:30 02/28/24 10:29 01/30/24 06:47 25 MLS/HR Morphine Sulfate (morPHINE 2MG SYG) 2 mg Q4H PRN IVP SEVERE PAIN (7-10) 01/28/24 16:30 02/04/24 16:29 01/29/24 08:54 2 MG Morphine Sulfate (morPHINE 2MG SYG) 2 mg Q6H PRN IVP SEVERE PAIN (7-10) 01/27/24 14:30 01/27/24 20:16 DC Ondansetron HCl (zoFRAN 4MG INJ) 4 mg Q6H PRN IVP NAUSEA/VOMITING 01/27/24 16:00 02/26/24 15:59 01/31/24 10:29 4 MG Pantoprazole Sodium (PROTonix 40MG TAB) 40 mg ACBKFST PO 01/28/24 09:00 02/27/24 08:59 02/01/24 09:05 40 MG Piperacillin Sod/ Tazobactam Sod (Zosyn 3.375gm+NS 50ml) 3.375 gm Q12H IVPB 01/27/24 14:30 02/06/24 14:29 02/01/24 02:27 3.375 GM Potassium Chloride 100 ml @ 100 mls/hr AD PRN IV POTASSIUM PROTOCOL 01/29/24 10:30 02/28/24 10:29 Potassium Chloride (K-Dur/Klor-Con 20meq) 20 meq AD PRN PO POTASSIUM PROTOCOL 01/29/24 10:30 02/28/24 10:29 02/01/24 09:03 20 MEQ Potassium Chloride (KCl 10% Elixir 20meq/15ml) 20 meq AD PRN PO POTASSIUM PROTOCOL 01/29/24 10:30 02/28/24 10:29 01/30/24 08:17 20 MEQ Prochlorperazine Edisylate (Compazine 10mg/ 2ml Inj) 10 mg Q6H PRN IV NAUSEA/VOMITING 01/31/24 15:00 03/01/24 14:59 Simvastatin (zoCOR) 40 mg HS PO 01/29/24 21:00 02/26/24 20:59 01/31/24 19:51 40 MG Simvastatin (zoCOR) 80 mg HS PO 01/27/24 21:00 01/29/24 10:17 DC 01/28/24 19:18 80 MG Sodium Chloride 1,000 ml @ 50 mls/hr Q20H IV 01/27/24 14:30 02/26/24 14:29 01/29/24 04:24 50 MLS/HR Tamsulosin HCl (FloMAX) 0.4 mg BID PO 01/27/24 21:00 02/26/24 20:59 02/01/24 09:03 0.4 MG Tamsulosin HCl (FloMAX) 0.4 mg ONCE PO 01/27/24 17:00 01/27/24 21:00 DC 01/27/24 18:29 0.4 MG Vitamin B Complex (Vitamin B-12) 100 mcg DAILY PO 01/29/24 09:00 02/28/24 08:59 02/01/24 09:03 100 MCG DIAGNOSTICS / RADIOLOGY: ASSESSMENT: Complicated urinary tract infection with significant cystitis, POA, resolving Hematuria,POA, resolving Chronic anemia, POA, on Iron supplement PO Hypokalemia, improving Hypocalcemia Recent fall, POA Acute on chronic bilateral moderate hydroureteronephrosis, POA Hypertensive urgency, POA Underlying history of prostate cancer, POA , s/p radiation therapy and Enzalutamide Recent history of syncope, POA Debility/frailty/deconditioning, POA Moderate to severe protein calorie malnutrition with associated 20 lb weight loss in one month, POA 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 Continue GI prophylaxis with Protonix Continue DVT prophylaxis 5000 t.i.d. SQ Repeat CBC, CMP labs tomorrow AM TRACEE CAZARES MD Feb 01, 2024 11:01
[2024-02-01] MEDS: LOPERAMIDE 1 MG/7.5 ML UDCUP PO PRN (14:02)
--- NOTE | 2024-02-01 15:09 | PN ---
NEPHROLOGY PROGRESS NOTE Date/Time Patient Seen: Feb 01, 2024 SUBJECTIVE: This is a 83-year-old male with underlying history of prostate cancer with recent history of radiation treatment maintained on outpatient treatment with enzalutamide, chronic kidney disease, hypertension, hyperlipidemia, BPH. He presented to the ER for further evaluation with back pain, generalized weakness and hematuria He is followed by Dr Villa. S/p Braun catheter removal. S/P EGD Repeat CT of the abdomen showed chronic bladder outlet obstruction with bilateral chronic hydroureteronephrosis and atrophy of the kidneys. Status post cholecystectomy. Pending renogram with Lasix as per Dr. Camarena recommendations He was noted with elevated BUN/creatinine We are consulted for renal failure Renal function is stable Electrolytes are stable UA positive for proteinuria and leukocyte esterase Continues on antibiotics He continues to complain of diarrhea He was seen in the medical floor, in no acute distress Prognosis remains guarded. REVIEW OF SYSTEMS: GENERAL: Negative for any nausea, vomiting, fevers, chills, or weight loss. NEUROLOGIC: Negative for any blurry vision, blind spots, double vision, facial asymmetry, dysphagia, dysarthria, hemiparesis, hemisensory deficits, vertigo, ataxia. HEENT: Negative for any head trauma, neck trauma, neck stiffness, photophobia, phonophobia, sinusitis, rhinitis. CARDIAC: Negative for any chest pain, dyspnea on exertion, paroxysmal nocturnal dyspnea, peripheral edema. PULMONARY: Negative for any shortness of breath, wheezing, COPD, or TB exposure. GASTROINTESTINAL: Negative for any abdominal pain, nausea, vomiting, bright red blood per rectum, melena. GENITOURINARY: Negative for any dysuria, hematuria, incontinence. INTEGUMENTARY: Negative for any rashes, cuts, insect bites. RHEUMATOLOGIC: Negative for any joint pains, photosensitive rashes, history of vasculitis or kidney problems. HEMATOLOGIC: Negative for any abnormal bruising, frequent infections or bleeding. Vital Signs (last 8hr) Date Time Temp Pulse Resp B/P (MAP) Pulse Ox O2 Delivery O2 Flow Rate FiO2 01/28/24 12:21 98.2 109 18 126/76 97 Room Air 21 01/28/24 08:35 98.1 84 17 157/77 99 Room Air 21 01/28/24 08:00 99 Room Air* 0 21 PHYSICAL EXAM: GENERAL: Alert and oriented x 3. No acute distress. Well-nourished. EYES: EOMI. Anicteric. HENT: Moist mucous membranes. No scleral icterus. No cervical lymphadenopathy. LUNGS: Clear to auscultation bilaterally. No accessory muscle use. CARDIOVASCULAR: Regular rate and rhythm. No murmur. No JVD. ABDOMEN: Soft, non-tender and non-distended. No palpable masses. EXTREMITIES: No edema. Non-tender.?SKIN: No rashes or lesions. Warm. NEUROLOGIC: No focal neurological deficits. CN II-XII grossly intact, but not individually tested. PSYCHIATRIC: Cooperative. Appropriate mood and affect. Current Medications Medications (Trade) Dose Ordered Sig/Zaida Route PRN Reason Start Time Stop Time Status Last Admin Dose Admin Acetaminophen (TYLenol 500MG TAB) 500 mg Q6H PRN PO MILD PAIN (1-3) 01/27/24 14:30 02/26/24 14:29 01/28/24 06:53 500 MG Amlodipine Besylate (NorvASC 5MG TAB) 5 mg Q24H PO 01/27/24 14:30 02/26/24 14:29 01/27/24 16:49 5 MG Aspirin (Aspirin 81mg Ec Tab) 81 mg DAILY PO 01/28/24 09:00 02/27/24 08:59 01/28/24 09:31 81 MG Ceftriaxone Sodium (ROCEphine 1G INJ) 1 gm ONCE IVPB 01/27/24 13:30 01/27/24 21:30 DC 01/27/24 13:35 1 GM Finasteride (PROscar 5 MG TAB) 5 mg HS PO 01/27/24 21:00 02/26/24 20:59 01/27/24 20:06 5 MG Furosemide (LASix 20MG TAB) 20 mg DAILY PO 01/28/24 09:00 02/27/24 08:59 01/28/24 09:32 20 MG Home Med (Home Medication) (Enzalutamide (Xtandi) 160 MG) AM PO 01/28/24 09:00 02/27/24 08:59 Home Med (Home Medication) (Mirabegron (Myrbetriq) 1 TAB) DAILY PO 01/28/24 09:00 02/27/24 08:59 Hydralazine HCl (APRESOLine 20MG INJ) 10 mg Q6H PRN IV ADMINISTER FOR SBP > 170 01/27/24 15:30 02/26/24 15:29 01/27/24 17:28 10 MG Hydromorphone HCl (DiLAUDid 0.5MG INJ) 0.2 mg Q6H PRN IVP SEVERE PAIN (7-10) 01/27/24 20:30 02/01/24 20:29 01/28/24 05:16 0.2 MG Isosorbide Mononitrate (Ismo) 30 mg AM PO 01/28/24 09:00 02/27/24 08:59 01/28/24 09:32 30 MG Losartan Potassium (CozAAR 50 mg TAB) 50 mg DAILY PO 01/28/24 16:00 01/27/24 17:41 DC Losartan Potassium (CozAAR 50 mg TAB) 50 mg Q24H PO 01/27/24 18:00 02/27/24 15:59 01/27/24 18:29 50 MG Morphine Sulfate (morPHINE 2MG SYG) 2 mg Q6H PRN IVP SEVERE PAIN (7-10) 01/27/24 14:30 01/27/24 20:16 DC Ondansetron HCl (zoFRAN 4MG INJ) 4 mg Q6H PRN IVP NAUSEA/VOMITING 01/27/24 16:00 02/26/24 15:59 Pantoprazole Sodium (PROTonix 40MG TAB) 40 mg ACBKFST PO 01/28/24 09:00 02/27/24 08:59 01/28/24 09:32 40 MG Piperacillin Sod/ Tazobactam Sod (Zosyn 3.375gm+NS 50ml) 3.375 gm Q12H IVPB 01/27/24 14:30 02/06/24 14:29 01/28/24 03:27 3.375 GM Simvastatin (zoCOR) 80 mg HS PO 01/27/24 21:00 02/26/24 20:59 01/27/24 22:15 80 MG Sodium Chloride 1,000 ml @ 50 mls/hr Q20H IV 01/27/24 14:30 02/26/24 14:29 01/28/24 09:43 50 MLS/HR Tamsulosin HCl (FloMAX) 0.4 mg BID PO 01/27/24 21:00 02/26/24 20:59 01/28/24 09:31 0.4 MG Tamsulosin HCl (FloMAX) 0.4 mg ONCE PO 01/27/24 17:00 01/27/24 21:00 DC 01/27/24 18:29 0.4 MG LABORATORY: [ ] Hematology Labs: Test 02/01/24 05:14 Range/Units White Blood Count 5.0 4.8-10.8 K/uL Red Blood Count 3.11 L 4.50-6.20 MIL/uL Hemoglobin 8.3 L 14.0-18.0 g/dL Hematocrit 26.7 L 42-54 % Mean Corpuscular Volume 85.9 79-99 fL Mean Corpuscular Hemoglobin 26.7 L 27.0-33.0 pg Mean Corpuscular Hemoglobin Concent 31.1 L 32.0-36.0 g/dL Red Cell Distribution Width 15.9 H 11.0-15.5 % Platelet Count 233 130-400 K/uL Mean Platelet Volume 9.6 7.5-10.5 fL Immature Granulocyte % (Auto) 2.2 H 0-1 % Neutrophils (%) (Auto) 69.6 40.0-77.0 % Lymphocytes (%) (Auto) 11.4 L 21.0-51.0 % Monocytes (%) (Auto) 13.0 3.0-13.0 % Eosinophils (%) (Auto) 3.6 0.0-8.0 % Basophils (%) (Auto) 0.2 0.0-5.0 % Neutrophils # (Auto) 3.5 1.8-7.7 K/uL Lymphocytes # (Auto) 0.6 L 1.0-4.8 K/uL Monocytes # (Auto) 0.7 0.1-1.0 K/uL Eosinophils # (Auto) 0.18 0.00-0.70 K/uL Basophils # (Auto) 0.01 0.00-0.20 K/uL Absolute Immature Granulocyte (auto 0.11 0-1 K/uL Nucleated Red Blood Cells 0.0 0.0-0.19 % Chemistry Labs: Test 02/01/24 05:14 01/31/24 03:28 Range/Units Sodium Level 137 136-145 mmol/L Potassium Level 3.5 3.5-5.1 mmol/L Chloride Level 107 101-111 mmol/L Carbon Dioxide Level 21 21-32 mmol/L Blood Urea Nitrogen 13 7-18 mg/dL Creatinine 1.9 H 0.5-1.3 mg/dL Glomerular Filtration Rate Calc 35 >90 mL/min Random Glucose 109 H 70-105 mg/dL Total Calcium 8.6 8.5-10.1 mg/dL Total Bilirubin 0.3 0.2-1.0 mg/dL Aspartate Amino Transf (AST/SGOT) 20 10-37 U/L Alanine Aminotransferase (ALT/SGPT) 15 12-78 U/L Alkaline Phosphatase 182 H 50-136 U/L Total Protein 6.3 6.0-8.3 g/dL Albumin 1.7 L 3.5-5.0 g/dL Phosphorus Level 2.8 2.5-4.9 mg/dL Magnesium Level 2.30 1.80-2.40 mg/dL Ferritin 87 30-400 ng/mL DIAGNOSTICS / RADIOLOGY: REASON: HYDRONEPHROSIS ORDERING PHYSICIAN: ANNA MARIE CAMARENA MD PROCEDURE: ABD PELVWO - CT ABD/PEL WO CON RENAL/APPY Exam Type: CT ABD/PEL WO CON RENAL/APPY Clinical Information: HYDRONEPHROSIS Comparison: None Contrast: 100 cc's Isovue 370 IV, no complications or adverse reactions CT Dose Index (CTDI): 31.60 mGy Dose Length Product (DLP): 1740.80 total mGy-cm Findings: Urinary bladder has irregular thickened wall. The prostate is enlarged. Bilateral chronic hydroureteronephrosis is seen with significant loss of cortical thickness of both kidneys consistent with atrophy. These findings are suggestive of chronic bladder outlet obstruction. Emphysematous changes of the lower lobes are seen bilaterally. The stomach is unremarkable except for a hiatal hernia. It shows no wall thickening. No gross ulceration is seen. It is not overly distended. There are no surrounding inflammatory changes. No wall lesions are identified to suggest cancer. The spleen is unremarkable. It is not enlarged. The pancreas shows normal anatomy. It is not fatty replaced. It shows no lesions. The pancreatic duct is not dilated. The gallbladder is surgically absent. The adrenal glands are unremarkable. There is no enlargement. No lesions are noted. The liver is unremarkable. It shows no focal masses. The appendix is unremarkable. It shows no evidence of inflammation. No appendicolith is seen. The small bowel is unremarkable. There is no evidence of dilatation to suggest obstruction. No evidence of adynamic ileus is seen. There is no small bowel wall thickening to suggest enteritis. The colon is unremarkable. The other pelvic structures are unremarkable. The bony and vascular structures are unremarkable for the patient's age. IMPRESSION: Chronic bladder outlet obstruction with bilateral chronic hydroureteronephrosis and atrophy of the kidneys. Status post cholecystectomy. Other findings as described. This study was performed using dose reduction techniques to include automated exposure control and/or adjustment of the mA and/or kV according to patient size. DICTATED BY: FELICIANO NIETO MD DATE: 01/29/241811 REASON: assess LVEF, r/o valvulopathy, EKG with Dr. Quoc SANDOVAL to read ORDERING PHYSICIAN: NADER TATE MD PROCEDURE: ECHO CMP - ECHO 2-D COMPLETE APPROVED REPORT EXAM: Two-dimensional and M-mode echocardiogram with Doppler and color Doppler. INDICATION ICD: assess LVEF, r/o valvulopathy 2D Dimensions RVDd 3.5 cm LVEF(%) 63.3 (>50%) LVED Vol(simp.) 117.0 mL IVSd 1.9 (0.7-1.1cm) FS(%) 34 % LVES Vol(simp.) 48.0 mL LVDd 4.4 (3.8-5.6cm) LA (2D) 4.1 (1.6-4.0cm) LVEF(%, simp.) 59 % PWd 1.5 (0.7-1.1cm) Ao Root(2D) 4.0 (2.0-3.7cm) LA ESV INDEX (4CH) 38.10 mL/m2 IVSs 1.8 cm LVOT diam 2.3 (1.8-2.4cm) LA ESV INDEX (2CH) 27.70 mL/m2 LVDs 2.9 (2.5-4.0cm) IVC diam 1.8 cm LA ESV INDEX (BP) 33.60 mL/m2 PWs 2.0 cm M-Mode Dimensions EPSS 0.7 cm LA (MM) 4.1 (1.6-4.0cm) Ao Root(MM) 3.6 (2.0-3.7cm) Aortic Valve AoV VTI 0.2 m Ao Mean GR 3.0 mmHg LVOT VTI 0.12 m DEMOND (VMAX) 3.1 cm2 DEMOND (VTI) 3.1 cm2 Mitral Valve MV E Vmax 42.4 cm/s DECEL Time 106 ms MV A Vmax 71.6 cm/s P 1/2 T 64 ms E/A ratio 0.6 MVA (PHT) 3.4 cm2 TDI E/E' Lateral 4.3 Lateral E' Peak V 9.90 cm/s Left Ventricle The left ventricle is normal size. Normal wall motion Moderate concentric left ventricular hypertrophy. LVEF is 55-60%. The LV diastolic function was unable to be assessed due to atrial arrhythmia. Right Ventricle The right ventricle is normal size. The right ventricular systolic function is normal. Atria The left atrium size is normal. The right atrium size is normal. Aortic Valve The aortic valve is mildly thickened but opens well. No aortic regurgitation is present. There is no aortic valvular stenosis. Mitral Valve The mitral valve is normal in structure. There is no mitral valve regurgitation noted. There is no mitral valve stenosis. Tricuspid Valve The tricuspid valve is normal in structure. There is no tricuspid valve regurgitation noted. Pulmonic Valve Not well seen There is no pulmonic valvular regurgitation. Great Vessels The aortic root is normal in size. The IVC is normal in size and collapses >50% with inspiration. Pericardium There is no pericardial effusion. Conclusion LVEF is 55-60%. The LV diastolic function was unable to be assessed due to atrial arrhythmia. Moderate concentric left ventricular hypertrophy. The left ventricle is normal size. Normal wall motion The aortic valve is mildly thickened but opens well. There is no pericardial effusion. Normal pulmonary pressure Study quality was adequate DICTATED BY: YENNIFER SEXTON MD DATE: 01/28/24 0932 REASON: assess for any signficant infiltrates ORDERING PHYSICIAN: NADER TATE MD PROCEDURE: CXR1VW - CHEST 1VW CHEST 1VW CLINICAL HISTORY: assess for any signficant infiltrates COMPARISON: None TECHNIQUE: Single view of the chest was obtained. FINDINGS: Lungs are clear. Cardiac size upper limits of normal to mildly enlarged. The bony structures are within normal limits. IMPRESSION: Borderline heart size. DICTATED BY: MONICA FALCON DO DATE: 01/27/242105 REASON: WEAKNESS, X 2 WEEKS ORDERING PHYSICIAN: NADER TATE MD PROCEDURE: HEAD WO - CT HEAD/BRAIN W/O CONTRAST CT HEAD WITHOUT CONTRAST INDICATION: Weakness TECHNIQUE: Noncontrast axial helical CT images from the vertex through the skull base using 5 mm slice thickness without contrast material. Coronal and sagittal reconstructions were also included. Dose reduction techniques was used using integrated, automated and adaptive dose reduction exposure control. CT was performed with one or more of the following dose reduction techniques: Automated exposure control, adjustment of the mA and/or kV according to patient size, or use of iterative reconstruction technique. COMPARISON: None FINDINGS: Scattered and coalescent subcortical and periventricular white matter low attenuating areas likely represent residual of chronic small vessel arteriopathy and/or remote vascular insult. Generalized mild cerebral cortical atrophy is present.. No evidence for abnormal extra-axial fluid collections or masses. The ventricles and sulci are normal in size and configuration. No evidence for intracranial parenchymal, epidural, or subdural hemorrhage, mass effect or midline shift. The dubon-white matter differentiation is well preserved. No secondary evidence to suggest acute ischemia. Mild calcific plaque is present along the john of the cavernous segments of both internal carotid arteries. The brainstem and cerebellum appear normal. The visualized orbits appear unremarkable. The visible paranasal sinuses and mastoid air cells are clear. The calvarium appears normal. IMPRESSION: Chronic white matter ischemic changes, mild brain atrophy, and arteriosclerotic disease as described, without acute component. DICTATED BY: ANMOL CHEN MD DATE: 01/27/24 1446 REASON: PROSTATE CANCER, ASSESS FOR HYDRONEPHROSIS, HX OF CKD ORDERING PHYSICIAN: NADER TATE MD PROCEDURE: ABD PEL WO - CT ABDOMEN/PELVIS W/O CONTRAST CT ABDOMEN WITHOUT CONTRAST. CT PELVIS WITHOUT CONTRAST. INDICATION: Prostate cancer, evaluate for hydronephrosis TECHNIQUE: Routine transaxial imaging using 5 mm slice thickness through the abdomen and pelvis without the administration of IV contrast. Thin slice reconstructions are also provided. Coronal and sagittal reformatted images acquired for interpretation. CT was performed with one or more of the following dose reduction techniques: Automated exposure control, adjustment of the mA and/or kV according to patient size, or use of iterative reconstruction technique. COMPARISON: 06/07/2023 FINDINGS: ON NONCONTRAST IMAGING: ABDOMEN: Heart size is normal. Scarring at both lung bases. Moderate bilateral hydroureteronephrosis. The liver is normal in size and smooth in contour without biliary duct dilation. The spleen is normal in size and attenuation. The gallbladder is absent. Several miniscule calcifications within the pancreatic parenchyma without pancreatic duct dilation. The adrenal glands appear normal. No significant abdominal, retrocrural or retroperitoneal adenopathy noted. No evidence for intra-abdominal free air or organized fluid collection. Mild calcific plaque is noted along the abdominal aortic and iliac vessel john without aneurysmal dilation. PELVIS: Small fat-containing nonobstructing left inguinal hernia. Chronic-appearing urinary bladder wall thickening, but associated mild surrounding inflammatory fat stranding. No evidence for free air or organized pelvic fluid collection. No significant pelvic adenopathy detected. Several diverticula along the distal colon. Terminal ileum appears unremarkable. The appendix appears normal. Prostate gland is enlarged. Visible osseous structures are intact. IMPRESSION: 1. Enlarged prostate gland, findings suggesting acute on chronic cystitis, and moderate bilateral hydroureteronephrosis. 2. Distal colonic diverticulosis. 3. Chronic pancreatitis. 4. Small fat-containing nonobstructing left inguinal hernia. DICTATED BY: ANMOL CHEN MD DATE: 01/27/24 1446 ASSESSMENT: Acute on chronic renal failure Anemia Acute on chronic bilateral moderate hydroureteronephrosis Complicated urinary tract infection with significant cystitis Hematuria Recent fall Hypertensive urgency Underlying history of prostate cancer Recent history of syncope Debility/frailty/deconditioning, Moderate to severe protein calorie malnutrition with associated 20 lb weight loss in one month Rule out radiation cystitis Hypertension Hyperlipidemia GERD BPH PLAN: Labs, diagnostic, radiologic exams reviewed and interpreted by myself and supervising physician. We have reviewed external records in detail Pending renogram with Lasix as per Dr. MEZA. Require close monitoring of renal function and electrolytes Order CBC, CMP, and electrolytes in am Continue with antibiotics BiPAP as necessary, for respiratory distress Monitor blood pressure adjust medication doses as needed Avoid hypotensive episodes May use Dilaudid 0.5 mg IV every 6 hours as needed for severe pain Monitor blood sugars Strict intake, output, and daily weight should be monitored Please renally adjust medications Avoid nephrotoxic and nonsteroidal drugs Avoid contrast if possible Will continue to monitor renal function, anemia, electrolytes Treatment plan discussed with patient Questions were answered We have discussed with the other team physicians in detail about the care plan We will continue to monitor the patient closely ATTESTATION BY PHYSICIAN Aly have seen and examined the patient. I reviewed the documentation, medical decision making, and treatment plan as noted by the mid-level provider above. I agree with the findings and plan of care. LAMONT CURRY MD, [facility] Feb 01, 2024 15:09
--- NOTE | 2024-02-01 16:10 | PN ---
Mr. Millard is an 83-year-old male with a past medical history significant for CHF, CAD, hyperlipidemia, and prostate cancer. Patient is status post radiation therapy. Patient only received 1 dose of Lupron 45 mg IM on 05/22/2019. Patient was found to have anemia and was sent for evaluation for that reason. Patient was found to have hypersegmented neutrophils on peripheral blood smear and was recommended folic acid and vitamin B12 daily. Patient was also found to have iron deficiency and was recommended oral iron. Patient is being followed by urology at [place]. Patient is from [place]. PET/CT done 08/02/2023 showed diffuse heterogeneous uptake within the prostate. There are 2 more focal areas of uptake involving peripheral zone bilaterally consistent with recurrent disease. There is at least 2 lymph nodes associated with focal increase in the left pelvis consistent with recurrent disease. There is few scattered prominent lymph nodes in retroperitoneum. There are also scattered prominent lymph nodes in the mediastinum. Patient has bilateral hydronephrosis. Patient has been recommended hormonal therapy consisting of enzalutamide and Lupron. Patient received a dose of the 6 month Eligard 45mg on 08/30/2023. He is currently taking Xtandi and reports tolerating the medication well. Patient was next hormone injection 02/15/2024. Patient finished his radiation therapy treatment 2023 Patient was admitted to the hospital because UTI Patient was found to have hematuria This patient finished bladder irrigation and Braun catheter was removed Patient complaining of pelvic pain which improved. But the patient is asking for morphine to be done every 2-3 hours as needed Patient complaining of diarrhea with significant multiple bowel movement today. Physical Exam: General: No acute distress. Well-developed. HEENT: Normocephalic. Atraumatic. EOMI. PERRLA. Moist mucous membranes. No oral lesions. Oral cavity is clear. Neck: Supple. No cervical adenopathy. No supraclavicular adenopathy. Spine: Nontender to percussion. Lungs: No increased work of breathing. No use of accessory muscles. Normal lung sounds. Heart: Good peripheral perfusion. Abdomen: Soft. Extremities: No lower extremity edema. No cyanosis. No clubbing. Normal 2+ pulses bilaterally. Neurological: Intact. Musculoskeletal: Normal transportation aid strength. Normal upper extremity strength. Impression: 1. History of prostate cancer status post radiation therapy treatment. He is a previous PSA was 3.4. PET CT scan was done 08/02/2023 which showed diffuse heterogeneous uptake within the prostate. There is 2 more focal areas of uptake involving the peripheral zone bilaterally consistent with recurrent disease. There is at least 2 lymph node associated with focal increase in the left pelvis consistent with recurrent disease. There is few scattered prominent lymph node in the retroperitoneum. There is scattered prominent lymph node in the mediastinum. There is bilateral hydronephrosis and hydro ureters. Patient received a dose of the 6 month Eligard 45mg on 08/30/2023. He is currently taking Xtandi and reports tolerating the medication well. Patient was next hormone injection 02/15/2024. Patient to finish his radiation therapy treatment 2023 Patient complaining of first time hematuria today. 2. Anemia. Which is corrected. Hemoglobin 14.7 g/deciliter. Patient was found to have iron deficiency anemia. 3. Hypertension 4. Hyperlipidemia 5. Coronary artery disease 6. Hematuria status post bladder irrigation 7. Pelvic pain 8. UTI 9. Significant diarrhea with the patient could have C. difficile colitis Plan: 1. Patient received a dose of the 6 month Eligard 45mg on 08/30/2023. He is currently taking Xtandi and reports tolerating the medication well. Patient was next hormone injection 02/15/2024. Patient finish his radiation therapy treatment 2023 2. This patient to be investigated for C. difficile colitis. Meanwhile this patient to receive Lomotil 2.5 mg p.o. twice daily 3. This patient will need iron supplement 1 tablet of iron every other day 4. No need for blood product transfusion 5. Continue pain medication with morphine 2 mg every 3 hours as needed as needed. 6. This patient may be will need rehab center. Vitals/Labs Vital Signs Date Time Temp Pulse Resp B/P (MAP) Pulse Ox O2 Delivery O2 Flow Rate FiO2 02/01/24 14:30 97.5 89 18 129/82 97 Room Air 21 02/01/24 08:45 0 Laboratory Tests 02/01/24 05:14 Medications Current Medications Sodium Chloride 1,000 ml @ 0 mls/hr ONCE ONCE IV Last administered on 01/27/24at 12:30; Start 01/27/24 at 11:30; Stop 01/27/24 at 11:31; Status DC Morphine Sulfate 2 mg ONCE ONCE IVP Last administered on 01/27/24at 12:30; Start 01/27/24 at 11:30; Stop 01/27/24 at 11:31; Status DC Ondansetron HCl 4 mg ONCE ONCE IVP Last administered on 01/27/24at 12:30; Start 01/27/24 at 11:30; Stop 01/27/24 at 11:31; Status DC Ceftriaxone Sodium 1 gm ONCE IVPB Last administered on 01/27/24at 13:35; Start 01/27/24 at 13:30; Stop 01/27/24 at 21:30; Status DC Morphine Sulfate 2 mg Q6H PRN IVP; Start 01/27/24 at 14:30; Stop 01/27/24 at 20:16; Status DC Sodium Chloride 1,000 ml @ 50 mls/hr Q20H IV Last administered on 02/01/24at 14:03; Start 01/27/24 at 14:30; Stop 02/26/24 at 14:29 Piperacillin Sod/ Tazobactam Sod 3.375 gm Q12H IVPB Last administered on 02/01/24at 14:03; Start 01/27/24 at 14:30; Stop 02/06/24 at 14:29 Amlodipine Besylate 5 mg Q24H PO Last administered on 02/01/24at 14:03; Start 01/27/24 at 14:30; Stop 02/26/24 at 14:29 Losartan Potassium 50 mg DAILY PO; Start 01/28/24 at 16:00; Stop 01/27/24 at 17:41; Status DC Acetaminophen 500 mg Q6H PRN PO Last administered on 02/01/24at 12:52; Start 01/27/24 at 14:30; Stop 02/26/24 at 14:29 Pantoprazole Sodium 40 mg ACBKFST PO Last administered on 02/01/24at 09:05; Start 01/28/24 at 09:00; Stop 02/27/24 at 08:59 Aspirin 81 mg DAILY PO Last administered on 02/01/24at 09:03; Start 01/28/24 at 09:00; Stop 02/27/24 at 08:59 Hydralazine HCl 10 mg Q6H PRN IV Last administered on 01/27/24at 17:28; Start 01/27/24 at 15:30; Stop 02/26/24 at 15:29 Ondansetron HCl 4 mg Q6H PRN IVP Last administered on 01/31/24at 10:29; Start 01/27/24 at 16:00; Stop 02/26/24 at 15:59 Finasteride 5 mg HS PO Last administered on 01/31/24at 19:51; Start 01/27/24 at 21:00; Stop 02/26/24 at 20:59 Tamsulosin HCl 0.4 mg ONCE PO Last administered on 01/27/24at 18:29; Start 01/27/24 at 17:00; Stop 01/27/24 at 21:00; Status DC Losartan Potassium 50 mg Q24H PO Last administered on 01/31/24at 17:54; Start 01/27/24 at 18:00; Stop 02/27/24 at 15:59 Furosemide 20 mg DAILY PO Last administered on 02/01/24at 09:03; Start 01/28/24 at 09:00; Stop 02/27/24 at 08:59 Isosorbide Mononitrate 30 mg AM PO Last administered on 02/01/24at 09:04; Start 01/28/24 at 09:00; Stop 02/27/24 at 08:59 Tamsulosin HCl 0.4 mg BID PO Last administered on 02/01/24at 09:03; Start 01/27/24 at 21:00; Stop 02/26/24 at 20:59 Home Med (Enzalutamide (Xtandi) 160 MG) AM PO; Start 01/28/24 at 09:00; Stop 02/27/24 at 08:59 Home Med (Mirabegron (Myrbetriq) 1 TAB) DAILY PO; Start 01/28/24 at 09:00; Stop 02/27/24 at 08:59 Simvastatin 80 mg HS PO Last administered on 01/28/24at 19:18; Start 01/27/24 at 21:00; Stop 01/29/24 at 10:17; Status DC Hydromorphone HCl 0.2 mg Q6H PRN IVP Last administered on 01/28/24at 14:46; Start 01/27/24 at 20:30; Stop 01/28/24 at 16:16; Status DC Morphine Sulfate 2 mg ONCE ONCE IVP Last administered on 01/28/24at 11:46; Start 01/28/24 at 11:30; Stop 01/28/24 at 11:31; Status DC Morphine Sulfate 2 mg Q4H PRN IVP Last administered on 01/29/24at 08:54; Start 01/28/24 at 16:30; Stop 02/04/24 at 16:29 Acetaminophen/ Hydrocodone Bitart 1 tab ONCE ONCE PO Last administered on 01/28/24at 21:18; Start 01/28/24 at 21:30; Stop 01/28/24 at 21:31; Status DC Folic Acid 1 mg DAILY PO Last administered on 02/01/24at 09:03; Start 01/29/24 at 09:00; Stop 02/28/24 at 08:59 Vitamin B Complex 100 mcg DAILY PO Last administered on 02/01/24at 09:03; Start 01/29/24 at 09:00; Stop 02/28/24 at 08:59 Ferrous Sulfate 325 mg DAILY PO Last administered on 02/01/24at 09:03; Start 01/29/24 at 09:00; Stop 02/28/24 at 08:59 Potassium Chloride 100 ml @ 100 mls/hr AD PRN IV; Start 01/29/24 at 10:30; Stop 02/28/24 at 10:29 Potassium Chloride 20 meq AD PRN PO Last administered on 01/30/24at 08:17; Start 01/29/24 at 10:30; Stop 02/28/24 at 10:29 Potassium Chloride 20 meq AD PRN PO Last administered on 02/01/24at 11:48; Start 01/29/24 at 10:30; Stop 02/28/24 at 10:29 Magnesium Sulfate 50 ml @ 0 mls/hr PROTOCOL PRN IV Last administered on 01/30/24at 06:47; Start 01/29/24 at 10:30; Stop 02/28/24 at 10:29 Simvastatin 40 mg HS PO Last administered on 01/31/24at 19:51; Start 01/29/24 at 21:00; Stop 02/26/24 at 20:59 Hydromorphone HCl 0.5 mg Q2HPRN PRN IVP Last administered on 01/31/24at 10:25; Start 01/29/24 at 11:30; Stop 01/31/24 at 11:03; Status DC Heparin Sodium (Porcine) 5,000 unit Q8H SQ Last administered on 01/31/24at 06:29; Start 01/29/24 at 13:00; Stop 02/28/24 at 12:59 Loperamide HCl 4 mg ONCE PRN PO Last administered on 01/30/24at 02:54; Start 01/30/24 at 02:30; Stop 01/30/24 at 02:57; Status DC Loperamide HCl 2 mg ONCE ONCE PO Last administered on 01/31/24at 04:00; Start 01/30/24 at 14:30; Stop 01/30/24 at 14:31; Status DC Trazodone HCl 25 mg ONCE ONCE PO Last administered on 01/30/24at 21:13; Start 01/30/24 at 20:30; Stop 01/30/24 at 20:31; Status DC Loperamide HCl 2 mg STK-MED ONCE PO; Start 01/31/24 at 03:58; Stop 01/31/24 at 03:58; Status DC Loperamide HCl 1 mg STK-MED ONCE .ROUTE; Start 01/31/24 at 03:59; Stop 01/31/24 at 04:00; Status DC Hydromorphone HCl 0.5 mg Q6H PRN IVP; Start 01/31/24 at 11:00; Stop 02/05/24 at 10:59 Prochlorperazine Edisylate 10 mg Q6H PRN IV; Start 01/31/24 at 15:00; Stop 03/01/24 at 14:59 Trazodone HCl 25 mg ONCE ONCE PO Last administered on 01/31/24at 21:57; Start 01/31/24 at 20:30; Stop 01/31/24 at 20:31; Status DC Ketamine HCl 50 mg STK-MED ONCE .ROUTE; Start 02/01/24 at 07:48; Stop 02/01/24 at 07:54; Status DC Propofol 200 mg STK-MED ONCE IV; Start 02/01/24 at 07:48; Stop 02/01/24 at 07:54; Status DC Lidocaine HCl 100 mg STK-MED ONCE .ROUTE; Start 02/01/24 at 07:48; Stop 02/01/24 at 07:54; Status DC Loperamide HCl 2 mg BID PRN PO Last administered on 02/01/24at 14:02; Start 02/01/24 at 14:00; Stop 03/02/24 at 13:59 RAMEZ MAGAÑA MD Feb 01, 2024 16:10
[2024-02-01] MEDS: furoSEMIDE 40MG VIAL ONE (17:16)
[2024-02-01] MEDS: trAZOdone HCL 50 MG TAB PO PRN (20:22)
[2024-02-02] VITALS: BP 110/52; PULSE 64; RESP 18; TEMP 98.9
[2024-02-02 04:00] VITALS: BP 138/68; PULSE 64; RESP 19; TEMP 98.3
[2024-02-02 04:11] LABS: BASOPHILS # (AUTO) 0.04 K/uL (0.00-0.20); BASOPHILS % (AUTO) 0.7 % (0.0-5.0); EOSINOPHILS # (AUTO) 0.16 K/uL (0.00-0.70); EOSINOPHILS % (AUTO) 2.8 % (0.0-8.0); HEMATOCRIT 27.5 % (42-54); IMMATURE GRANULOCYTE ABSOLUTE 0.14 K/uL (0-1); LYMPHOCYTES # (AUTO) 0.7 K/uL (1.0-4.8); LYMPHOCYTES % (AUTO) 12.2 % (21.0-51.0); MEAN CORPUSCULAR HEMOGLOBIN 26.9 pg (27.0-33.0); MEAN CORPUSCULAR HGB CONC 31.6 g/dL (32.0-36.0); MEAN CORPUSCULAR VOLUME 85.1 fL (79-99); MONOCYTES # (AUTO) 0.8 K/uL (0.1-1.0); MONOCYTES % (AUTO) 13.6 % (3.0-13.0); NEUTROPHILS # (AUTO) 3.9 K/uL (1.8-7.7); NEUTROPHILS % (AUTO) 68.2 % (40.0-77.0); PLATELET COUNT (AUTO) 270 K/uL (130-400); RED BLOOD CELL COUNT(AUTO) 3.23 MIL/uL (4.50-6.20); RED CELL DISTRIBUTION WIDTH 15.9 % (11.0-15.5); WHITE BLOOD COUNT (AUTO) 5.7 K/uL (4.8-10.8)
[2024-02-02 04:48] LABS: ALBUMIN 1.7 g/dL (3.5-5.0); BILIRUBIN,TOTAL 0.3 mg/dL (0.2-1.0); POTASSIUM 4.2 mmol/L (3.5-5.1); TOTAL PROTEIN, SERUM 6.6 g/dL (6.0-8.3)
[2024-02-02 08:22] VITALS: BP 154/70; PULSE 72; RESP 16; TEMP 97.9
[2024-02-02 09:17] VITALS: O2SAT 98
[2024-02-02 11:11] VITALS: BP 126/74; PULSE 113; RESP 17; TEMP 97.7
[2024-02-02] MEDS ORDERED: CYAN100T45 PO (13:01)
[2024-02-02] MEDS ORDERED: AMLO5TAB4 PO (13:01)
--- NOTE | 2024-02-02 13:14 | DS ---
Discharge Summary Hospital Course Summary: 83-year-old male with underlying history of prostate cancer with recent history of radiation treatment maintained on outpatient treatment with enzalutamide, chronic kidney disease, hypertension, hyperlipidemia, BPH, who presented to the ER for further evaluation with back pain. Symptoms have been ongoing for the past two weeks and have been nonresolving. Patient states that he has a underlying history of prostate cancer and underwent recent radiation treatment, postradiation therapy, patient states that he developed worsening back pain and suprapubic discomfort. He noticed that his urine is pinkish tinge and he reports having dysuria. Patient is followed by Dr. Villa as oupatient and is followed at the [place]. He was diagnosed with prostate cancer about eight years ago. Patient's care provider present at bedside has noticed that patient has been having progressive functional decline and he has noticed that patient has more fatigued and tired as well. Patient has lost about 20 lb in the last one month. Patient denies focal weakness of upper or lower extremities otherwise. Patient also reports having a possible syncopal episode about 3-4 days ago. On presentation to the hospital, patient was noted to be hypertensive with blood pressure of 181/104, afebrile and heart rate of 111. Labs on presentation showe d WBC count of 8200, hemoglobin of 10.4, platelet count of 284719. BMP remarkable for sodium 138, potassium 4.4, BUN of 24, creatinine 2.1, alkaline phosphatase of 208. Urinalysis showed cloudy urine with leukocyte esterase, RBCs, pyuria, and bacteriuria. Patient admitted for further management of complicated UTI. Patient receiving IV antibiotics, cultures did not show any growth. CT abdomen and pelvis did show enlarged prostate gland, findings suggestive of acute on chronic cystitis and moderate bilateral hydronephrosis, distal colonic diverticulosis, chronic pancreatitis, small fat containing nonobstructing left inguinal hernia. We requested consultation with Urology, Nephrology and Oncology this admission given patient's multiple underlying comorbidities and underlying history of prostate cancer. Patient was evaluated by Dr Camarena with recommendations of placing a Braun catheter with three way Bur[place], bone scan oncology consultation. Bone scan showed bilateral hydronephrosis with contrast retention mostly in the right kidney. Small amount of activity seen in the bladder. There are degenerative changes with increased activities in the shoulders elbows knees and ankles bilaterally. There is an area with increased activity in the right distal humerus of questionable etiology. Clinical correlation is recommended to rule out bony lesion. No other silent to graphic evidence. Patient also had a CBI on initial admission for which hematuria has been cleared and eventually three-way Braun catheter has been discontinued. A repeat CT abdomen and pelvis without contrast did show chronic bladder outlet obstruction with bilateral chronic hydroureteronephrosis and atrophy of the kidneys. At this point, we will continue with four more days of antibiotics. Patient was also evaluated by virtual reality specialist for which he has been cleared and next appointment is 02/15/2024 for hormone injection. He had completed radiation treatment on 01/09/2024. Patient is hemodynamically stable, so far labs have improved. His home medication reviewed and we will send the patient home to complete 10 days of antibiotics. Patient has been cleared from Oncology standpoint. Patient also has been cleared by nutrition technician. He was also cleared by urologist with instructions to follow up with them in one week. We agreed with Rehabiliatation per Oncology but family declined placement and would like to just have physical therapy at home. Advised that the [place] we will arrange home health with physical therapy and make sure that he mentioned on his follow up appointment with his PCP. Patient and provider verbalized understanding. Cilnical Scientist(s): Dr. Camarena- urologist Dr. Villa- Oncologist dr. Kandace Campos- business process manager Procedure(s): [place] [address] [address] IMAGING REPORT Signed PATIENT: JAMES BATEMAN MR#: [id number] : 1940 SEX: M AGE: 83 LOCATION: [facility] ORDER 37 STATUS: ADM IN REPORT#: [id number] SERVICE 08 REASON: hx of prostate cancer ORDERING PHYSICIAN: ANNA MARIE CAMARENA MD PROCEDURE: BONE WBD - NM BONE SCAN WHOLE BODY NM BONE SCAN WHOLE BODY REASON: hx of prostate cancer . COMPARISON: None TECHNIQUE: Nuclear renal scan was performed. FINDINGS: There appears be bilateral hydronephrosis with contrast retention mostly in the right kidney. Small amount of activity is seen in the bladder. There are degenerative changes with increased activities in the shoulders, elbows, knees and ankles bilaterally. There is area with increase activity in the right distal humerus of questionable etiology. Clinical correlation is recommended to rule out bony lesion. No other scintigraphic evidence of bone metastases is seen. IMPRESSION: Findings as described above. DICTATED BY: PAWAN HERNANDEZ MD DATE: 01/28/24 1453 ELECTRONICALLY SIGNED BY: PAWAN HERNANDEZ MD DATE: 01/28/[address] [address] IMAGING REPORT Signed PATIENT: JAMES BATEMAN MR#: [id number] : 1940 SEX: M AGE: 83 LOCATION: [facility] ORDER 02 STATUS: ADM IN REPORT#: [id number] SERVICE 01 REASON: assess LVEF, r/o valvulopathy, EKG with Dr. Quoc SANDOVAL to read ORDERING PHYSICIAN: NADER TATE MD PROCEDURE: ECHO CMP - ECHO 2-D COMPLETE APPROVED REPORT EXAM: Two-dimensional and M-mode echocardiogram with Doppler and color Doppler. INDICATION ICD: assess LVEF, r/o valvulopathy 2D Dimensions RVDd 3.5 cm LVEF(%) 63.3 (>50%) LVED Vol(simp.) 117.0 mL IVSd 1.9 (0.7-1.1cm) FS(%) 34 % LVES Vol(simp.) 48.0 mL LVDd 4.4 (3.8-5.6cm) LA (2D) 4.1 (1.6-4.0cm) LVEF(%, simp.) 59 % PWd 1.5 (0.7-1.1cm) Ao Root(2D) 4.0 (2.0-3.7cm) LA ESV INDEX (4CH) 38.10 mL/m2 IVSs 1.8 cm LVOT diam 2.3 (1.8-2.4cm) LA ESV INDEX (2CH) 27.70 mL/m2 LVDs 2.9 (2.5-4.0cm) IVC diam 1.8 cm LA ESV INDEX (BP) 33.60 mL/m2 PWs 2.0 cm M-Mode Dimensions EPSS 0.7 cm LA (MM) 4.1 (1.6-4.0cm) Ao Root(MM) 3.6 (2.0-3.7cm) Aortic Valve AoV VTI 0.2 m Ao Mean GR 3.0 mmHg LVOT VTI 0.12 m DEMOND (VMAX) 3.1 cm2 DEMOND (VTI) 3.1 cm2 Mitral Valve MV E Vmax 42.4 cm/s DECEL Time 106 ms MV A Vmax 71.6 cm/s P 1/2 T 64 ms E/A ratio 0.6 MVA (PHT) 3.4 cm2 TDI E/E' Lateral 4.3 Lateral E' Peak V 9.90 cm/s Left Ventricle The left ventricle is normal size. Normal wall motion Moderate concentric left ventricular hypertrophy. LVEF is 55-60%. The LV diastolic function was unable to be assessed due to atrial arrhythmia. Right Ventricle The right ventricle is normal size. The right ventricular systolic function is normal. Atria The left atrium size is normal. The right atrium size is normal. Aortic Valve The aortic valve is mildly thickened but opens well. No aortic regurgitation is present. There is no aortic valvular stenosis. Mitral Valve The mitral valve is normal in structure. There is no mitral valve regurgitation noted. There is no mitral valve stenosis. Tricuspid Valve The tricuspid valve is normal in structure. There is no tricuspid valve regurgitation noted. Pulmonic Valve Not well seen There is no pulmonic valvular regurgitation. Great Vessels The aortic root is normal in size. The IVC is normal in size and collapses >50% with inspiration. Pericardium There is no pericardial effusion. Conclusion LVEF is 55-60%. The LV diastolic function was unable to be assessed due to atrial arrhythmia. Moderate concentric left ventricular hypertrophy. The left ventricle is normal size. Normal wall motion The aortic valve is mildly thickened but opens well. There is no pericardial effusion. Normal pulmonary pressure Study quality was adequate DICTATED BY: YENNIFER SEXTON MD DATE: 01/28/24 0932 ELECTRONICALLY SIGNED BY: YENNIFER SEXTON MD DATE: 01/28/24 9264 [place] [address] [address] IMAGING REPORT Signed PATIENT: JAMES BATEMAN MR#: [id number] : 1940 SEX: M AGE: 83 LOCATION: [facility] ORDER 165 STATUS: ADM IN REPORT#: [id number] SERVICE 164 REASON: HYDRONEPHROSIS ORDERING PHYSICIAN: ANNA MARIE CAMARENA MD PROCEDURE: ABD PELVWO - CT ABD/PEL WO CON RENAL/APPY Exam Type: CT ABD/PEL WO CON RENAL/APPY Clinical Information: HYDRONEPHROSIS Comparison: None Contrast: 100 cc's Isovue 370 IV, no complications or adverse reactions CT Dose Index (CTDI): 31.60 mGy Dose Length Product (DLP): 1740.80 total mGy-cm Findings: Urinary bladder has irregular thickened wall. The prostate is enlarged. Bilateral chronic hydroureteronephrosis is seen with significant loss of cortical thickness of both kidneys consistent with atrophy. These findings are suggestive of chronic bladder outlet obstruction. Emphysematous changes of the lower lobes are seen bilaterally. The stomach is unremarkable except for a hiatal hernia. It shows no wall thickening. No gross ulceration is seen. It is not overly distended. There are no surrounding inflammatory changes. No wall lesions are identified to suggest cancer. The spleen is unremarkable. It is not enlarged. The pancreas shows normal anatomy. It is not fatty replaced. It shows no lesions. The pancreatic duct is not dilated. The gallbladder is surgically absent. The adrenal glands are unremarkable. There is no enlargement. No lesions are noted. The liver is unremarkable. It shows no focal masses. The appendix is unremarkable. It shows no evidence of inflammation. No appendicolith is seen. The small bowel is unremarkable. There is no evidence of dilatation to suggest obstruction. No evidence of adynamic ileus is seen. There is no small bowel wall thickening to suggest enteritis. The colon is unremarkable. The other pelvic structures are unremarkable. The bony and vascular structures are unremarkable for the patient's age. IMPRESSION: Chronic bladder outlet obstruction with bilateral chronic hydroureteronephrosis and atrophy of the kidneys. Status post cholecystectomy. Other findings as described. This study was performed using dose reduction techniques to include automated exposure control and/or adjustment of the mA and/or kV according to patient size. DICTATED BY: FELICIANO NIETO MD DATE: 01/29/241811 ELECTRONICALLY SIGNED BY: FELICIANO NIETO MD DATE: 01/29/241816 Assessment/Plan: Discharge diagnoses Bilateral chronic hydroureteronephrosis by CT abdomen and pelvis Complicated urinary tract infection with significant cystitis, POA, resolving Hematuria,POA, resolving Chronic anemia, POA, on Iron supplement PO Hypokalemia, improving Hypocalcemia Recent fall, POA Acute on chronic bilateral moderate hydroureteronephrosis, POA Hypertensive urgency, POA Underlying history of prostate cancer, POA , s/p radiation therapy and Enzalutamide Recent history of syncope, POA Debility/frailty/deconditioning, POA Moderate to severe protein calorie malnutrition with associated 20 lb weight loss in one month, POA 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, POA Acute on chronic renal failure, POA, resolving Hypertension, POA Hyperlipidemia, POA Tachycardia with RBBB, POA GERD, POA History of BPH, POA Admitting diagnoses Complicated urinary tract infection with significant cystitis, POA Hematuria,POA Recent fall, POA Acute on chronic bilateral moderate hydroureteronephrosis, POA Hypertensive urgency, POA Underlying history of prostate cancer, POA Recent history of syncope, POA Debility/frailty/deconditioning, POA Moderate to severe protein calorie malnutrition with associated 20 lb weight loss in one month, POA Rule out radiation cystitis, POA Acute on chronic renal failure, POA Hypertension, POA Hyperlipidemia, POA Tachycardia with RBBB, POA GERD, POA History of BPH, POA Discharge Instructions: Follow-up follow up with PCP in 2-3 days, [facility] will benefit from physical therapy at home Follow up with oncologist in one week Follow up with GI in one week Follow-up with business process manager in one week Follow up with urologist in one week Home Medications: Reported Medications Isosorbide Mononitrate (Isosorbide Mononitrate) 20 Mg Tablet, 30 MG PO AM, TAB 01/27/24 Tamsulosin HCl (Flomax) 0.4 Mg Cap.er.24h, 0.4 MG PO BID, CAPSULE.DR 01/27/24 Pravastatin Sodium (Pravastatin Sodium) 40 Mg Tablet, 80 MG PO HS, TAB 01/27/24 Omeprazole (Omeprazole) 20 Mg Capsule.dr, 1 CAP PO DAILY for 30 Days, #30 CAP 0 Refills 01/27/24 Mirabegron (Myrbetriq) 50 Mg Tab.er.24h, 1 TAB PO DAILY for 30 Days, #30 TAB 0 Refills 01/27/24 Losartan Potassium (Losartan Potassium) 100 Mg Tablet, 50 MG PO BID, TAB 01/27/24 Furosemide (Furosemide) 20 Mg Tablet, 1 TAB PO DAILY for 30 Days, #30 TAB 0 Refills 01/27/24 Finasteride (Finasteride) 5 Mg Tablet, 1 TAB PO DAILY for 30 Days, #30 TAB 0 Refills 01/27/24 Enzalutamide (Xtandi) 40 Mg Capsule, 160 MG PO AM, CAP 01/27/24 Amlodipine Besylate (Amlodipine Besylate) 10 Mg Tablet, 15 MG PO DAILY for 30 Days, #30 TAB 0 Refills 01/27/24 Time spent arranging discharge: 31-60 minutes ATTESTATION BY PHYSICIAN I have seen and examined the patient. I reviewed the documentation, medical decision making, and treatment plan as noted by the mid-level provider above. I agree with the findings and plan of care. Mary Gooden MD, [facility] Feb 02, 2024 13:13
--- NOTE | 2024-02-02 14:20 | PN ---
FOLLOWUP PROGRESS NOTE SUBJECTIVE: An 83-year-old male with a history of known prostate cancer, status post therapy. The patient presented to the hospital and found to have underlying renal dysfunction. The patient has a history of chronic bladder outlet obstruction. Braun catheter was removed. The patient is pending nuclear medicine renal scan results. The patient is able to urinate and he is being seen for all the above. The patient's creatinine is much improved overnight and he is being seen as a followup visit. REVIEW OF SYSTEMS: GENERAL: The patient is feeling weak and tired. HEENT: No change in vision. No change in hearing. CARDIOVASCULAR: There is no current chest pain or palpitations. PULMONARY: No shortness of breath. GASTROINTESTINAL: He is tolerating diet. MUSCULOSKELETAL: Complains of weakness. PHYSICAL EXAMINATION: VITAL SIGNS: Blood pressure 126/74, pulse in the 100s. GENERAL: He is a chronically ill elderly male, lying in bed on medical floor. HEENT: Head is atraumatic. Pupils equal, roving to light. Oropharynx is without exudate. Nares clear. NECK: There is no JVP. There is no thyromegaly, no mass. CARDIOVASCULAR: Regular. There is no S3, S4 gallop. LUNGS: Coarse with equal thoracic movement. ABDOMEN: Soft, nondistended, nontender. EXTREMITIES: Reveal no clubbing, no cyanosis. NEUROLOGIC: He is awake. He is alert. LABORATORY DATA: Hemoglobin 8.7, hematocrit 27. Sodium 138, potassium 4.2, BUN 14, creatinine is 2. IMPRESSION: * Renal dysfunction. * History of prostate cancer. * Hypertension. * Anemia. PLAN: The patient's creatinine has remained fairly stable. The patient is being seen by Urology. I did discuss the case in detail with the patient and his family. Once the patient is cleared by urology, he can safely be discharged and go home. TID: [id number] RECEIPT: [id number]
--- NOTE | 2024-02-02 17:43 | HMCIMG ---
NM RENOGRAM W/ LASIX HISTORY: To detect acute urinary obstruction TECHNIQUE: The patient was injected with 8mCi of technetium 99 MAG3. Sequential posterior images were obtained and the renogram curve results were calculated. Lasix was injected as per protocol. FINDINGS: There is bilateral renal parenchymal uptake and excretion. Decreased left renal function is seen. No definite radiotracer excretion seen in the left kidney. Tortuous right ureter is noted. Excretion into the urinary bladder. There is no evidence of high-grade obstruction in the right ureter. Routine renogram shows split renal function 24.1% left and 75.9% right. Peak time renal activity of 58 minutes on the left and 18 minutes on the right. IMPRESSION: 1. There is bilateral renal parenchymal uptake and excretion. Decreased left renal function is seen. No definite radiotracer excretion seen in the left kidney. Tortuous right ureter is noted. Excretion into the urinary bladder. There is no evidence of high-grade obstruction in the right ureter. The right kidney shows good response to Lasix stimulation. The left kidney does not respond to Lasix stimulation. 2. Split renal function 24.1% left and 75.9% right.
== END 2024-02-02 14:35 | disposition home or self-care (01) | DRG 377 ==
LOC: EDH 10:59 → EDHIP 14:08 → 4BH 16:22
PROVIDERS: ADMIT Internal Medicine; ATTEND Internal Medicine
PROC: 0DB68ZX Excision of Stomach, Via Natural or Artificial Opening Endoscopic, Diagnostic (ICD-10-PCS; principal; 2024-02-01)
DX: K31.811 Angiodysplasia of stomach and duodenum with bleeding (principal); E43 Unspecified severe protein-calorie malnutrition; N13.6 Pyonephrosis; I13.0 Hypertensive heart and chronic kidney disease with heart failure and stage 1 through stage 4 chronic kidney disease, or unspecified chronic kidney disease; K86.1 Other chronic pancreatitis; N17.9 Acute kidney failure, unspecified; R62.7 Adult failure to thrive; I16.0 Hypertensive urgency; G31.9 Degenerative disease of nervous system, unspecified; K21.9 Gastro-esophageal reflux disease without esophagitis; E86.0 Dehydration; E78.5 Hyperlipidemia, unspecified; N40.0 Benign prostatic hyperplasia without lower urinary tract symptoms; N18.30 Chronic kidney disease, stage 3 unspecified; Z96.659 Presence of unspecified artificial knee joint; I50.9 Heart failure, unspecified; I25.10 Atherosclerotic heart disease of native coronary artery without angina pectoris; K29.70 Gastritis, unspecified, without bleeding; E83.51 Hypocalcemia; I45.10 Unspecified right bundle-branch block; N32.0 Bladder-neck obstruction; K57.30 Diverticulosis of large intestine without perforation or abscess without bleeding; K40.90 Unilateral inguinal hernia, without obstruction or gangrene, not specified as recurrent; E87.6 Hypokalemia; D50.9 Iron deficiency anemia, unspecified; Z92.3 Personal history of irradiation; Z68.30 Body mass index [BMI] 30.0-30.9, adult; Z87.442 Personal history of urinary calculi; Z85.46 Personal history of malignant neoplasm of prostate; Z90.49 Acquired absence of other specified parts of digestive tract; I25.2 Old myocardial infarction; Z79.899 Other long term (current) drug therapy
CPT/HCPCS: 36415; 43239; 43270; 70450; 71045; 74176; 78306; 78708; 80048; 80053; 80076; 81001; 82270; 82306; 82607; 82728; 83540; 83550; 83690; 83735; 84100; 84145; 84153; 84484; 84550; 85025; 85651; 86140; 87086; 93005; 93306; 96365; 96375; 99285; A4606; A9503; A9562; G0378; J0360; J0696; J1171; J1644; J1940; J2003; J2270; J2405; J2543; J2704; J3475; J7030; A4215; A4222; A4223; A4620; J3490